=== PATIENT | female | born 1960 | race Caucasian/White ===

== ENCOUNTER → 2018-08-08 15:30 | Outpatient (CLI) | payer OTHER, SELFPAY | PROVIDERS: PCP Family Medicine | DX: Z23 Encounter for immunization (principal) | CPT/HCPCS: 90471; 90686 ==

== ENCOUNTER → 2018-11-27 11:25 | Outpatient (CLI) | payer OTHER, SELFPAY ==
--- NOTE | 2018-11-27 | DI.MG.S_ITS ---
BILATERAL DIGITAL SCREENING MAMMOGRAM 3D/2D WITH CAD: 11/27/2018 CLINICAL: Routine screening. Comparison is made to exams dated: 09/08/2017 mammogram, 09/17/2016 mammogram, and 09/11/2015 mammogram - [facility]. The tissue of both breasts is predominantly fatty. Current study was also evaluated with a Computer Aided Detection (CAD) system. No significant masses, calcifications, or other findings are seen in either breast. There has been no significant interval change. IMPRESSION: NEGATIVE There is no mammographic evidence of malignancy. A 1 year screening mammogram is recommended. This exam was interpreted at Station ID: [id number]. NOTE: For mammograms, a report in lay terms will be sent to the patient. Approximately 15% of breast malignancies will not be visualized mammographically. In the management of a palpable breast mass, a negative mammogram must not discourage biopsy of a clinically suspicious lesion. Electronically Signed By: Gunner davis/janes:11/27/2018 13:25:19 letter sent: Normal Exam ACR BI-RADS Category 1: Negative 3341F
== END ==
PROVIDERS: PCP Family Medicine; Visit Provider Obstetrics & Gynecology
DX: Z12.31 Encounter for screening mammogram for malignant neoplasm of breast (principal)
CPT/HCPCS: 77063; 77067

== ENCOUNTER → 2019-05-04 11:09 | Outpatient (CLI) | payer OTHER, SELFPAY ==
[2019-05-04 12:12] LABS: Add Manual Diff / Slide Review NO; Basophils Absolute Auto 0 /uL (0-100); Basophils Percent Auto 0.5 % (0-2); Eosinophils Absolute Auto 300 /uL (0-450); Hematocrit 41.3 % (36-46); Hemoglobin 13.5 g/dL (12.0-16.0); Lymphocytes Absolute Auto 2200 /uL (1100-4500); Mean Corpuscular HGB Conc 32.6 % (30-36); Mean Corpuscular Hemoglobin 27.9 PG (26-34); Mean Corpuscular Volume 85.5 fL (80-100); Monocytes Absolute Auto 600 /uL (0-900); Monocytes Percent Auto 6.5 % (3-14); Neutrophils Absolute Auto 5800 /uL (1500-7000); Platelet Count 433 X10^3/uL (150-400); Red Blood Cell Count 4.82 X10^6/uL (4.0-5.2); Red Cell Distribution Width 14.5 % (11.6-14.8)
[2019-05-04 13:10] LABS: Alanine Aminotransferase 36 IU/L (9-52); Albumin 4.4 g/dL (3.5-5.0); Albumin Globulin Ratio 1.3 (1.0-2.8); Alkaline Phosphatase 104 U/L (38-126); Aspartate Aminotransferase 33 IU/L (14-36); BUN Creatinine Ratio 28.8 (6-22); Bilirubin Total 0.6 mg/dL (0.2-1.3); Blood Urea Nitrogen 23 mg/dL (7-17); Calcium 10.2 mg/dL (8.4-10.2); Carbon Dioxide 30 mmol/L (22-32); Chloride 101 mmol/L (98-107); Cholesterol 201 mg/dL (140-199); Estimated Glomerular Filt Rate > 60.0 mL/min (>60); Globulin 3.4 g/dL (1.7-4.1); Glucose 89 mg/dL (70-100); HDL Cholesterol 40 mg/dL (40-60); HEMOLYSIS < 15 (0-50); LDL Cholesterol Calculated 145 mg/dL (<100); Potassium 4.9 mmol/L (3.4-5.1); Sodium 141 mmol/L (137-145); Total Protein 7.8 g/dL (6.3-8.2); Triglycerides 81 mg/dL (35-150)
[2019-05-04 13:28] LABS: Thyroid Stimulating Hormone 0.57 uIU/mL (0.47-4.68)
== END ==
PROVIDERS: PCP Family Medicine; Visit Provider Family Medicine
DX: E03.9 Hypothyroidism, unspecified (principal); I10 Essential (primary) hypertension
CPT/HCPCS: 36415; 80053; 80061; 84443; 85025

== ENCOUNTER 2020-01-01 17:37 | Emergency (ER) | payer OTHER, SELFPAY ==
--- NOTE | 2020-01-01 17:46 | DI.RAD.S_ITS ---
PROCEDURE: XR CHEST 1V INDICATIONS: chest tightness TECHNIQUE: One view of the chest was acquired. COMPARISON: [facility], CT, PE STUDY (CTA CHEST), 02/05/2015, 11:22. [facility], CR, CHEST 2 VIEW, 02/05/2015, 9:33. [facility], CR, CHEST 1 VIEW, 10/20/2015, 22:00. FINDINGS: Surgical changes and devices: None. Lungs and pleura: Lungs are clear. No pleural effusions or pneumothorax. Mediastinum: Mediastinal contours appear normal. Heart size is normal. Bones and chest wall: No suspicious bony lesions. Overlying soft tissues appear unremarkable. IMPRESSION: Portable chest within normal limits. Dictated by: Bernard Juarez M.D. on 01/01/2020 at 16:59 Approved by: Bernard Juarez M.D. on 01/01/2020 at 17:00
[2020-01-01 17:47] VITALS: BP 142/82; PULSE 72; RESP 20; TEMP 36.6; O2SAT 97
--- NOTE | 2020-01-01 18:04 | ED.CHESTPAIN ---
HPI - Chest Pain General Chief Complaint: Chest Pain Stated Complaint: feels like a band across back Time Seen by Provider: 01/01/20 18:03 Source: patient Mode of arrival: Ambulatory Limitations: no limitations History of Present Illness HPI narrative: This is a 59-year-old female who comes to the emergency department with complaint of a band of discomfort across her back that started about 5:00 p.m. this evening patient states that started while she was taking a shower. She states it felt like she still had her bra on.Patient states that moving around seems to make it worse. Does not seem to be specific to moving her upper extremities versus walking around. In sort of intermittent. She states it did radiate towards the left shoulder blade at 1 point but that was very brief. She states it is not present currently. She denies shortness of breath, no nausea, no vomiting, she has not any diaphoresis, no lightheadedness or presyncope. She has had a mild headache. No fevers, no chills, no cough cold or congestion. She denies any swelling in her extremities she has a history of hypertension she was switched from Cardizem to lisinopril 6 weeks ago because her blood pressure was not controlled and it has been improved. She has had history of dyslipidemia but lost 60 lb in her numbers improved so she is not currently on a statin, she takes potassium in the morning and magnesium in the evening, aspirin 162 mg and vitamin D3. She had a stress test greater than 10 years ago which she states was negative she has a family history her mother had an TN in her early 60s and her father had a CABG. She has had multiple orthopedic surgeries with a fused ankle, knee surgery, cholecystectomy with no prior stents or cardiac catheterization. She follows with Dr. Kothari is her primary care. Related Data Home Medications Medication Instructions Recorded Confirmed aspirin 162 mg PO DAILY 01/01/20 01/01/20 Previous Rx's Medication Instructions Recorded fluticasone propionate 1 spray INTRANASAL BID #16 gm 05/19/16 albuterol sulfate 90 mcg/actuation 2 puff INHALATION Q6-8H PRN #8.5 06/22/18 aerosol inhaler gram levothyroxine 175 mcg tablet 175 mcg PO QDAY #90 tab 06/08/19 lisinopril 20 1 tab PO DAILY #90 tab 11/26/19 mg-hydrochlorothiazide 12.5 mg tablet Allergies Allergy/AdvReac Type Severity Reaction Status Date / Time hydromorphone [HYDROMORPHONE] Allergy Mild Verified 11/26/19 08:29 shellfish derived Allergy Mild shrimp Verified 11/26/19 08:29 [SHELLFISH DERIVED] azithromycin [AZITHROMYCIN] AdvReac Intermediate heart Verified 11/26/19 08:29 palpitations measles, mumps, and rubella AdvReac Intermediate Maculopapular Verified 11/26/19 08:29 vaccine rash atorvastatin [ATORVASTATIN] AdvReac Mild sore throat Verified 11/26/19 08:29 cefuroxime [CEFUROXIME] AdvReac Mild gi upset Verified 11/26/19 08:29 morphine [MORPHINE] AdvReac Mild itching Verified 11/26/19 08:29 Sulfa (Sulfonamide AdvReac Mild gi upset Verified 11/26/19 08:29 Antibiotics) [SULFA (SULFONAMIDE ANTIBIOTICS)] trimethoprim [TRIMETHOPRIM] AdvReac Mild gi upset Verified 11/26/19 08:29 Review of Systems Review of Systems ROS Unobtainable: All systems reviewed & are unremarkable except as noted in HPI and below Patient History Medical History Allergic rhinitis (Chronic ~1981) Anemia (Resolved ~1987) Anxiety (Chronic ~2006) Arthritis (Chronic ~1985) Chicken pox (Resolved 07/20/74) GERD (gastroesophageal reflux disease) (Chronic 2004) Hayfever (Chronic 1981) Headache (Chronic) Hearing loss (Chronic 1996) Heart palpitations (Chronic ~2009) Hemorrhoid (Resolved ~2011) History of upper GI x-ray series (Resolved 12/14/04) Hyperlipidemia (Chronic 1991) Hypertension (Chronic 2007) Hypothyroidism (Chronic 09/2010) Measles (Resolved) Meniere's disease (cochlear hydrops) (Chronic 1997) Migraines (Chronic ~1989) Multiple acquired skin tags (Chronic ~1979) Right ankle pain (Resolved 04/1986) RLS (restless legs syndrome) (Chronic ~2007) Sciatica of right side without back pain (Chronic 2007) Shoulder pain (Chronic 2011) Tinnitus (Chronic 1996) Toxoplasmosis chorioretinitis of right eye (Resolved) Trimalleolar fracture (Resolved 04/22/86) Vertigo (Chronic 1996) Vitamin D deficiency (Chronic ~09/2009) Surgical History Anesthesia (Resolved) History of esophagogastroduodenoscopy (EGD) (Resolved 06/09/15) Status post ankle fusion (Resolved 09/18/92) Status post delivery (Resolved 06/21/97) Status post delivery (Resolved 03/30/01) Status post cholecystectomy (Resolved 06/27/92) Status post colonoscopy (Resolved 06/02/10) Status post dilation and curettage (Resolved 04/22/96) Status post dilation and curettage (Resolved 02/12/99) Status post hardware removal (Resolved 06/1986) Status post hardware removal (Resolved 09/1986) Status post knee surgery (Resolved 12/09/15) Status post surgery (Resolved 01/16/16) Status post surgical manipulation of ankle joint (Resolved 04/22/86) Status post tubal ligation (Resolved 03/30/01) Family History Brother Age: 48 High cholesterol Daughter Age: 22 Asthma Father Age: 81 Hx of heart bypass surgery Hypertension High cholesterol Heart disease TIA (transient ischemic attack) TGA (transient global amnesia) Grandmother History of heart attack Kidney malignancy Hypertension High cholesterol Stroke Mother Age: 80 Diabetes mellitus Heart attack High cholesterol Hypertension Diabetic neuropathy Grandfather Hx of heart bypass surgery Alzheimer's disease Grandmother Diabetes mellitus Hypertension Congestive heart failure Sister Age: 59 High cholesterol Sister Age: 53 Smoker Celiac disease Sister Age: 50 Neuropathy, lateral femoral cutaneous nerve Hypothyroidism Anxiety Daughter Age: 38 No problems noted. Social History (Updated 01/01/20 @ 18:26 by Zarina Vinson DO) Smoking Status: Never smoker substance use type: does not use Smoking Status: Never smoker Exam Narrative Exam Narrative: GENERAL: Alert and oriented x three, well-nourished, well-appearing obese female in no acute distress. HEENT: Head normocephalic, atraumatic, EOMI, pupils reactive, face symmetric, moist mucous membranes NECK: Supple, full range of motion CARDIOVASCULAR: Regular rate and rhythm without murmurs, rubs or gallops. RESPIRATORY: Breath sounds equal bilaterally, no wheezes rales or rhonchi. ABDOMEN: Soft, nontender. Normoactive bowel sounds all 4 quadrants. No guarding or rebound, rigidity, no mass : No CVA tenderness EXTREMITIES: Normal range of motion, no clubbing or edema. Pulses bilateral lower extremities. Neurovascularly intact NEUROLOGICAL: Cranial nerves II through XII grossly intact. Moving all extremities SKIN: Warm, dry, no petechiae, no rashes or lesions. Initial Vital Signs Initial Vital Signs: Vital Signs Temperature 97.9 F 01/01/20 17:47 Pulse Rate 72 01/01/20 17:47 Respiratory Rate 20 01/01/20 17:47 Blood Pressure 142/82 H 01/01/20 17:47 Pulse Oximetry 97 01/01/20 17:47 Scores HEART Score Heart Score history: Moderately Suspicious Heart Score EKG: Normal Heart Score Age: 45-64 years old Heart Score risk factors: 1-2 risk factors Heart Score troponin: < or = to normal limit Heart Score Total: 3 Course Orders Ordered: ED Orders 01/01/20 17:46 XR chest 1V Stat EKG-12 Lead Stat 01/01/20 17:59 Complete Blood Count AUTO DIFF Stat Comprehensive Metabolic Panel Stat Lipase Stat Troponin & CK Cardiac Panel Stat 01/01/20 20:00 Troponin & CK Cardiac Panel Stat EKG-12 Lead Stat Discontinued Medications Aspirin (Aspirin Chew) 324 mg PO NOW ONE Stop: 01/01/20 18:22 Last Admin: 01/01/20 18:31 Dose: 324 mg Documented by: OLI Ketorolac Tromethamine (Toradol) 15 mg IV NOW ONE Stop: 01/01/20 20:44 Last Admin: 01/01/20 20:50 Dose: 15 mg Documented by: SAMMYFARKeila Vital Signs Vital signs: Vital Signs - 8 hr 01/01/20 17:47 01/01/20 18:20 01/01/20 19:43 Temperature 97.9 F Pulse Rate 72 68 82 Respiratory Rate 20 16 30 H Blood Pressure 142/82 H Blood Pressure [Right Arm] 139/62 134/62 Pulse Oximetry 97 98 97 MDM - Chest Pain Lab Data Attestation: I reviewed the patient's lab results. Result diagrams: 01/01/20 17:59 01/01/20 17:59 Labs: Lab Results 01/01/20 01/01/20 01/01/20 Range/Units 17:59 17:59 20:00 WBC 9.1 (4.5-11.0) X10^3/uL RBC 4.31 (4.0-5.2) X10^6/uL Hgb 12.8 (12.0-16.0) g/dL Hct 37.1 (36-46) % MCV 86.1 (80-100) fL MCH 29.8 (26-34) PG MCHC 34.6 (30-36) % RDW 13.5 (11.6-14.8) % Plt Count 325 (150-400) X10^3/uL Neut % (Auto) 60.2 (50-75) % Lymph % (Auto) 27.5 (25-40) % [place] % (Auto) 6.6 (3-14) % Eos % (Auto) 4.8 H (2-4) % Baso % (Auto) 0.9 (0-2) % Neut # (Auto) 5500 (2655-9339) /uL Lymph # (Auto) 2500 (3991-7622) /uL [place] # (Auto) 600 (0-900) /uL Eos # (Auto) 400 (0-450) /uL Baso # (Auto) 100 (0-100) /uL Sodium 136 L (137-145) mmol/L Potassium 3.8 (3.4-5.1) mmol/L Chloride 100 (98-107) mmol/L Carbon Dioxide 27 (22-32) mmol/L BUN 21 H (7-17) mg/dL Creatinine 0.81 (0.52-1.04) mg/dL Estimated GFR > 60.0 (>60) mL/min BUN/Creatinine Ratio 25.9 H (6-22) Glucose 98 (70-100) mg/dL Calcium 9.8 (8.4-10.2) mg/dL Total Bilirubin 0.6 (0.2-1.3) mg/dL AST 35 (14-36) IU/L ALT 35 H (<35) IU/L Alkaline Phosphatase 103 (38-126) U/L Total Creatine Kinase 67 69 (30-135) U/L CK-MB (CK-2) TNP TNP CK-MB (CK-2) Rel Index TNP TNP Troponin I < 0.012 < 0.012 (0.01-0.034) ng/mL Total Protein 8.1 (6.3-8.2) g/dL Albumin 4.5 (3.5-5.0) g/dL Globulin 3.6 (1.7-4.1) g/dL Albumin/Globulin Ratio 1.3 (1.0-2.8) Lipase 86 (23-300) U/L Imaging Data Chest x-ray: Radiologist's Impression: [address] [address] XRay Report Signed Patient: Sandra Ly KMR#: [id number] : 2Acct:[id number] Age/Sex: 59 / FDate of Service: 01/01/20 Loc: ED Accession Number: [id number] Procedure: XR chest 1V Ordering Provider: Lucille Sarkar MD PROCEDURE: XR CHEST 1V INDICATIONS: chest tightness TECHNIQUE: One view of the chest was acquired. COMPARISON: [facility], CT, PE STUDY (CTA CHEST), 02/05/2015, 11:22. [facility], CR, CHEST 2 VIEW, 02/05/2015, 9:33. [facility], CR, CHEST 1 VIEW, 10/20/2015, 22:00. FINDINGS: Surgical changes and devices: None. Lungs and pleura: Lungs are clear. No pleural effusions or pneumothorax. Mediastinum: Mediastinal contours appear normal. Heart size is normal. Bones and chest wall: No suspicious bony lesions. Overlying soft tissues appear unremarkable. IMPRESSION: Portable chest within normal limits. Dictated by: Bernard Juarez M.D. on 01/01/2020 at 16:59 Approved by: Bernard Juarez M.D. on 01/01/2020 at 17:00 ECG Data Attestation: I personally reviewed and interpreted this ECG as follows: Prior ECG tracings: available for review Interpretation: Sinus rhythm rate of 73 MN 180 QRS of 90 and QTC of [address] elevation or depression. Patient's EKG appears similar to 07/20/2016 and 07/15/2012. EKG 2. Shows sinus rhythm with a rate of 65 MN 194 QRS of 99 and QTC of 419. No ST elevation or depression. EKG appears similar to prior from earlier. MDM Narrative Medical decision making narrative: Patient's initial labs, EKG and chest x-ray do not show clear changes. Discussed with patient we do not the option for outpatient stress testing at this time secondary to service is being restricted secondary to the current coronavirus pandemic for an undefined period of time. I did verify this with patient's primary service Dr. Lewis. Patient is reluctant to be admitted for observation at this time. Plan for repeat troponin and EKG at 2 hour carmita. Repeat troponin EKG do not show any new changes. Patient defers observation we did discuss at length risk versus benefit and she is aware that we cannot set up outpatient stress testing at this time. She is going to see Dr. Kothari tomorrow as she works in the same clinic and they can discuss any need for optimization. She states that she did continue to have some discomfort with movement and did try a dose of Toradol to see if this is helpful. But we also discussed we cannot rule out a cardiac cause and if she has worsening symptoms she should return. Discharge Plan Departure Patient Disposition: Home Clinical Impression: Back pain, thoracic Qualifiers: Chronicity: acute Back pain laterality: bilateral Qualified Code(s): M54.6 - Pain in thoracic spine Discharge Date/Time: 01/01/20 21:27 Instructions: DI for Atypical Chest Pain Activity Restrictions/Additional Instructions: Follow up with your primary care for recheck, you may call and discuss over the phone about additional steps. Continue your daily aspirin. Continue your home medications as prescribed. Return to the ER for new or worsening symptoms, lightheadedness or passing out, new back pain radiating to the chest, arms or neck, particularly if your short of breath, diaphoretic or sweaty, having nausea or vomiting, swelling in your extremities or other new or concerning symptoms. Prescriptions: No Action lisinopril-hydrochlorothiazide 20-12.5 mg tablet 1 tab PO DAILY Qty: 90 RF: 1 fluticasone propionate 16 GM spray,suspension 1 spray Intranasal BID Qty: 16 RF: 5 levothyroxine [Levoxyl] 175 mcg tablet 175 mcg PO QDAY Qty: 90 RF: 6 albuterol sulfate [Proventil HFA] 90 mcg/actuation HFA aerosol inhaler 2 puff INHALATION Q6-8H PRN (Reason: shortness of breath) Qty: 8.5 RF: 1 aspirin 81 mg Tablet,Chewable 162 mg PO DAILY RF: 0 Referrals: Stan Kothari MD [Primary Care Provider] -
[2020-01-01 18:07] LABS: Add Manual Diff / Slide Review NO; Basophils Absolute Auto 100 /uL (0-100); Basophils Percent Auto 0.9 % (0-2); Eosinophils Absolute Auto 400 /uL (0-450); Eosinophils Percent Auto 4.8 % (2-4); Hematocrit 37.1 % (36-46); Hemoglobin 12.8 g/dL (12.0-16.0); Lymphocytes Absolute Auto 2500 /uL (1100-4500); Lymphocytes Percent Auto 27.5 % (25-40); Mean Corpuscular HGB Conc 34.6 % (30-36); Mean Corpuscular Hemoglobin 29.8 PG (26-34); Mean Corpuscular Volume 86.1 fL (80-100); Monocytes Absolute Auto 600 /uL (0-900); Monocytes Percent Auto 6.6 % (3-14); Neutrophils Absolute Auto 5500 /uL (1500-7000); Neutrophils Percent Auto 60.2 % (50-75); Platelet Count 325 X10^3/uL (150-400); Red Blood Cell Count 4.31 X10^6/uL (4.0-5.2); Red Cell Distribution Width 13.5 % (11.6-14.8); White Blood Cell Count 9.1 X10^3/uL (4.5-11.0)
[2020-01-01 18:18] LABS: Alanine Aminotransferase 35 IU/L (<35); Albumin 4.5 g/dL (3.5-5.0); Albumin Globulin Ratio 1.3 (1.0-2.8); Alkaline Phosphatase 103 U/L (38-126); Aspartate Aminotransferase 35 IU/L (14-36); BUN Creatinine Ratio 25.9 (6-22); Bilirubin Total 0.6 mg/dL (0.2-1.3); Blood Urea Nitrogen 21 mg/dL (7-17); Calcium 9.8 mg/dL (8.4-10.2); Carbon Dioxide 27 mmol/L (22-32); Chloride 100 mmol/L (98-107); Creatine Kinase 67 U/L (30-135); Estimated Glomerular Filt Rate > 60.0 mL/min (>60); Globulin 3.6 g/dL (1.7-4.1); Glucose 98 mg/dL (70-100); HEMOLYSIS < 15 (0-50); Lipase 86 U/L (23-300); Potassium 3.8 mmol/L (3.4-5.1); Sodium 136 mmol/L (137-145); Total Protein 8.1 g/dL (6.3-8.2)
[2020-01-01 18:20] VITALS: BP 139/62; PULSE 68; RESP 16; O2SAT 98
[2020-01-01 18:30] LABS: Troponin I < 0.012 ng/mL (0.01-0.034)
[2020-01-01] MEDS: ASPIRIN 81 MG CHEW TAB 324 MG PO (18:31)
[2020-01-01 19:43] VITALS: BP 134/62; PULSE 82; RESP 30; O2SAT 97
[2020-01-01 20:29] LABS: Creatine Kinase 69 U/L (30-135)
[2020-01-01 20:42] LABS: Troponin I < 0.012 ng/mL (0.01-0.034)
[2020-01-01] MEDS: KETOROLAC 60 MG/2 ML VIAL 15 MG IV (20:50)
== END 2020-01-01 21:27 | disposition home or self-care (01) ==
PROVIDERS: Emergency Medicine; Emergency Provider Emergency Medicine; PCP Family Medicine; Referring Provider Family Medicine
DX: M54.6 Pain in thoracic spine (principal); R07.9 Chest pain, unspecified; Z79.82 Long term (current) use of aspirin
CPT/HCPCS: 36415; 71045; 80053; 82550; 83690; 84484; 85025; 93005; 96374; 99284; J1885

== ENCOUNTER → 2020-05-21 16:37 | Outpatient (CLI) | payer OTHER, SELFPAY ==
[2020-05-21 18:39] LABS: Bacteria Urine None Seen
[2020-05-21 18:50] LABS: Appearance Urine UA SL CLOUDY; Bilirubin Urine UA NEGATIVE (NEGATIVE); Color Urine UA BROWN; Glucose Urine UA NEGATIVE (Negative); Ketones Urine UA TRACE (NEGATIVE); Leukocyte Esterase Urine UA 1+ (NEGATIVE); Nitrite Urine UA NEGATIVE (Negative); Occult Blood Urine UA 3+ (Negative); Protein Urine UA 1+ (Negative); Urobilinogen Urine UA 0.2 E.U./dL (0.2)
[2020-05-21 19:18] LABS: Culture Indicated Urine Specimen Cultured; RBC Urine 10-30/HPF (0-5/HPF); WBC Urine 5-10/HPF (0-5/HPF)
== END ==
PROVIDERS: PCP Family Medicine; Visit Provider Nurse Practitioner Family
DX: R30.0 Dysuria (principal); R35.0 Frequency of micturition; R39.15 Urgency of urination
CPT/HCPCS: 81001; 87077; 87086; 87186

== ENCOUNTER → 2020-07-12 14:27 | Outpatient (CLI) | payer OTHER, SELFPAY | PROVIDERS: PCP Family Medicine; Referring Provider Internal Medicine; Visit Provider Internal Medicine | DX: Z23 Encounter for immunization (principal) | CPT/HCPCS: 90471; 90686 ==

== ENCOUNTER → 2020-08-12 14:40 | Outpatient (CLI) | payer OTHER, SELFPAY ==
--- NOTE | 2020-08-12 | DI.MG.S_ITS ---
BILATERAL DIGITAL SCREENING MAMMOGRAM 3D/2D WITH CAD: 08/12/2020 CLINICAL: Routine screening. Comparison is made to exams dated: 11/27/2018 mammogram, 09/08/2017 mammogram, 09/17/2016 mammogram, 09/11/2015 mammogram, and 08/16/2014 mammogram - [facility]. The tissue of both breasts is predominantly fatty. Current study was also evaluated with a Computer Aided Detection (CAD) system. No significant masses, calcifications, or other findings are seen in either breast. There has been no significant interval change. IMPRESSION: NEGATIVE There is no mammographic evidence of malignancy. A 1 year screening mammogram is recommended. This exam was interpreted at Station ID: [id number]. NOTE: For mammograms, a report in lay terms will be sent to the patient. Approximately 15% of breast malignancies will not be visualized mammographically. In the management of a palpable breast mass, a negative mammogram must not discourage biopsy of a clinically suspicious lesion. Electronically Signed By: El day/janes:08/12/2020 17:18:25 letter sent: Normal Exam ACR BI-RADS Category 1: Negative 3341F
== END ==
PROVIDERS: PCP Family Medicine; Referring Provider Family Medicine; Visit Provider Family Medicine
DX: Z12.31 Encounter for screening mammogram for malignant neoplasm of breast (principal)
CPT/HCPCS: 77063; 77067

== ENCOUNTER → 2020-08-15 10:12 | Outpatient (CLI) | payer OTHER, SELFPAY ==
[2020-08-15 11:26] LABS: Add Manual Diff / Slide Review NO; Basophils Absolute Auto 100 /uL (0-100); Basophils Percent Auto 0.9 % (0-2); Eosinophils Absolute Auto 400 /uL (0-450); Eosinophils Percent Auto 4.5 % (2-4); Hematocrit 37.1 % (36-46); Hemoglobin 12.4 g/dL (12.0-16.0); Lymphocytes Absolute Auto 2100 /uL (1100-4500); Lymphocytes Percent Auto 26.8 % (25-40); Mean Corpuscular HGB Conc 33.5 % (30-36); Mean Corpuscular Hemoglobin 29.5 PG (26-34); Mean Corpuscular Volume 87.9 fL (80-100); Monocytes Absolute Auto 500 /uL (0-900); Monocytes Percent Auto 6.1 % (3-14); Neutrophils Absolute Auto 4800 /uL (1500-7000); Neutrophils Percent Auto 61.7 % (50-75); Platelet Count 351 X10^3/uL (150-400); Red Blood Cell Count 4.22 X10^6/uL (4.0-5.2); Red Cell Distribution Width 13.5 % (11.6-14.8); White Blood Cell Count 7.8 X10^3/uL (4.5-11.0)
[2020-08-15 11:52] LABS: Alanine Aminotransferase 18 IU/L (<35); Albumin 4.1 g/dL (3.5-5.0); Albumin Globulin Ratio 1.3 (1.0-2.8); Alkaline Phosphatase 94 U/L (38-126); Aspartate Aminotransferase 26 IU/L (14-36); BUN Creatinine Ratio 25.8 (6-22); Bilirubin Total 0.5 mg/dL (0.2-1.3); Blood Urea Nitrogen 23 mg/dL (7-17); Calcium 9.6 mg/dL (8.4-10.2); Carbon Dioxide 31 mmol/L (22-32); Chloride 104 mmol/L (98-107); Cholesterol 205 mg/dL (140-199); Estimated Glomerular Filt Rate > 60.0 mL/min (>60); Globulin 3.2 g/dL (1.7-4.1); Glucose 94 mg/dL (70-100); HDL Cholesterol 36 mg/dL (40-60); HEMOLYSIS < 15 (0-50); LDL Cholesterol Calculated 152 mg/dL (<100); Potassium 4.8 mmol/L (3.4-5.1); Sodium 137 mmol/L (137-145); Total Protein 7.3 g/dL (6.3-8.2); Triglycerides 85 mg/dL (35-150)
[2020-08-15 12:21] LABS: Thyroid Stimulating Hormone 2.63 uIU/mL (0.47-4.68)
== END ==
PROVIDERS: PCP Family Medicine; Referring Provider Family Medicine; Visit Provider Family Medicine
DX: E03.9 Hypothyroidism, unspecified (principal); I10 Essential (primary) hypertension
CPT/HCPCS: 36415; 80053; 80061; 84443; 85025

== ENCOUNTER → 2020-10-02 09:57 | Outpatient (CLI) | payer OTHER, SELFPAY ==
[2020-10-02 11:47] LABS: COVID19 -Nasal RAPID Negative (Negative)
== END ==
PROVIDERS: PCP Family Medicine; Visit Provider Student in an Organized Health Care Education/Training Program
DX: R09.81 Nasal congestion (principal)
CPT/HCPCS: 87635

== ENCOUNTER → 2020-12-15 14:30 | Outpatient (CLI) | payer OTHER, SELFPAY ==
[2020-12-15] MEDS: COVID-19 VACC, Ad26(JANSSEN)/PF 0.5 ML IM (14:37)
== END ==
PROVIDERS: PCP Family Medicine; Visit Provider Internal Medicine
DX: Z23 Encounter for immunization (principal)
CPT/HCPCS: 0031A; 91303

== ENCOUNTER → 2020-12-24 09:27 | Outpatient (CLI) | payer OTHER, SELFPAY ==
[2020-12-24 11:34] LABS: COVID19 -Nasal RAPID Negative (Negative)
== END ==
PROVIDERS: PCP Family Medicine; Visit Provider Student in an Organized Health Care Education/Training Program
DX: Z20.822 Contact with and (suspected) exposure to COVID-19 (principal)
CPT/HCPCS: 87635

== ENCOUNTER → 2021-08-18 11:41 | Outpatient (CLI) | payer OTHER, SELFPAY ==
[2021-08-18 12:32] LABS: Add Manual Diff / Slide Review NO; Basophils Absolute Auto 100 /uL (0-100); Basophils Percent Auto 0.7 % (0-2); Eosinophils Absolute Auto 300 /uL (0-450); Eosinophils Percent Auto 3.9 % (2-4); Hematocrit 38.3 % (36-46); Hemoglobin 12.9 g/dL (12.0-16.0); Lymphocytes Absolute Auto 1800 /uL (1100-4500); Lymphocytes Percent Auto 24.5 % (25-40); Mean Corpuscular HGB Conc 33.6 % (30-36); Mean Corpuscular Volume 89.1 fL (80-100); Monocytes Absolute Auto 500 /uL (0-900); Monocytes Percent Auto 6.7 % (3-14); Neutrophils Absolute Auto 4800 /uL (1500-7000); Neutrophils Percent Auto 64.2 % (50-75); Platelet Count 355 X10^3/uL (150-400); Red Cell Distribution Width 13.2 % (11.6-14.8); White Blood Cell Count 7.5 X10^3/uL (4.5-11.0)
[2021-08-18 13:09] LABS: Alanine Aminotransferase 19 IU/L (<35); Albumin 4.2 g/dL (3.5-5.0); Albumin Globulin Ratio 1.4 (1.0-2.8); Alkaline Phosphatase 86 U/L (38-126); Aspartate Aminotransferase 25 IU/L (14-36); BUN Creatinine Ratio 20.7 (6-22); Bilirubin Total 0.4 mg/dL (0.2-1.3); Blood Urea Nitrogen 19 mg/dL (7-17); Calcium 9.7 mg/dL (8.4-10.2); Carbon Dioxide 28 mmol/L (22-32); Chloride 103 mmol/L (98-107); Cholesterol 210 mg/dL (140-199); Estimated Glomerular Filt Rate > 60.0 mL/min (>60); Globulin 2.9 g/dL (1.7-4.1); Glucose 92 mg/dL (70-100); HDL Cholesterol 39 mg/dL (40-60); HEMOLYSIS < 15 (0-50); LDL Cholesterol Calculated 155 mg/dL (<100); Potassium 4.4 mmol/L (3.4-5.1); Sodium 139 mmol/L (137-145); Total Protein 7.1 g/dL (6.3-8.2); Triglycerides 80 mg/dL (35-150)
[2021-08-18 13:34] LABS: Thyroid Stimulating Hormone 2.54 uIU/mL (0.47-4.68)
== END ==
PROVIDERS: PCP Family Medicine; Referring Provider Family Medicine; Visit Provider Family Medicine
DX: I10 Essential (primary) hypertension (principal); E03.9 Hypothyroidism, unspecified
CPT/HCPCS: 36415; 80053; 80061; 84443; 85025

== ENCOUNTER → 2021-08-20 09:57 | Outpatient (CLI) | payer OTHER, SELFPAY ==
[2021-08-20 13:05] LABS: Appearance Urine UA CLEAR; Bilirubin Urine UA NEGATIVE (NEGATIVE); Color Urine UA YELLOW; Glucose Urine UA NEGATIVE (Negative); Ketones Urine UA NEGATIVE (NEGATIVE); Leukocyte Esterase Urine UA NEGATIVE (NEGATIVE); Nitrite Urine UA NEGATIVE (Negative); Occult Blood Urine UA NEGATIVE (Negative); Protein Urine UA NEGATIVE (Negative); Specific Gravity Urine UA 1.015 (1.000-1.035); Urobilinogen Urine UA 0.2 E.U./dL (0.2)
[2021-08-20 13:16] LABS: Bacteria Urine Few (2-10); Culture Indicated Urine Cult Not Indicated; RBC Urine None Seen (0-5/HPF); Squamous Epithelial Cell Urine 10-30 /HPF (0-5/HPF); WBC Urine 1-5/HPF (0-5/HPF)
== END ==
PROVIDERS: PCP Family Medicine; Visit Provider Family Medicine
DX: R10.9 Unspecified abdominal pain (principal)
CPT/HCPCS: 81001

== ENCOUNTER → 2021-08-25 18:15 | Outpatient (CLI) | payer OTHER, SELFPAY ==
--- NOTE | 2021-08-25 | DI.MG.S_ITS ---
BILATERAL DIGITAL SCREENING MAMMOGRAM 3D/2D WITH CAD: 08/25/2021 CLINICAL: Routine screening. Comparison is made to exams dated: 08/12/2020 mammogram, 11/27/2018 mammogram, and 09/08/2017 mammogram - [facility]. The tissue of both breasts is predominantly fatty. Current study was also evaluated with a Computer Aided Detection (CAD) system. No significant masses, calcifications, or other findings are seen in either breast. There has been no significant interval change. IMPRESSION: NEGATIVE There is no mammographic evidence of malignancy. A 1 year screening mammogram is recommended. This exam was interpreted at Station ID: [id number]. NOTE: For mammograms, a report in lay terms will be sent to the patient. Approximately 15% of breast malignancies will not be visualized mammographically. In the management of a palpable breast mass, a negative mammogram must not discourage biopsy of a clinically suspicious lesion. Electronically Signed By: Stan Martínez M.D., jr/janes:08/26/2021 11:20:30 letter sent: Normal Exam ACR BI-RADS Category 1: Negative 3341F
== END ==
PROVIDERS: PCP Family Medicine; Referring Provider Family Medicine; Visit Provider Family Medicine
DX: Z12.31 Encounter for screening mammogram for malignant neoplasm of breast (principal)
CPT/HCPCS: 77063; 77067

== ENCOUNTER → 2021-08-26 19:03 | Outpatient (CLI) | payer OTHER, SELFPAY ==
[2021-08-26 19:44] LABS: COVID19 -Nasal RAPID Negative (Negative)
== END ==
PROVIDERS: PCP Family Medicine; Visit Provider Nurse Practitioner Family
DX: Z20.822 Contact with and (suspected) exposure to COVID-19 (principal)
CPT/HCPCS: 87635

== ENCOUNTER → 2021-08-28 11:09 | Outpatient (CLI) | payer OTHER, SELFPAY ==
[2021-08-28 11:44] LABS: COVID19 -Nasal RAPID POSITIVE (Negative)
== END ==
PROVIDERS: PCP Family Medicine; Visit Provider Nurse Practitioner Family
DX: U07.1 COVID-19 (principal); Z20.822 Contact with and (suspected) exposure to COVID-19
CPT/HCPCS: 87635

== ENCOUNTER → 2022-08-06 14:00 | Outpatient (CLI) | payer OTHER, SELFPAY | PROVIDERS: PCP Family Medicine; Referring Provider Internal Medicine; Visit Provider Internal Medicine | DX: Z23 Encounter for immunization (principal) | CPT/HCPCS: 90471; 90686 ==

== ENCOUNTER → 2022-09-15 10:26 | Outpatient (CLI) | payer OTHER, SELFPAY ==
[2022-09-15 12:40] LABS: Add Manual Diff / Slide Review NO; Basophils Absolute Auto 0 /uL (0-100); Basophils Percent Auto 0.7 % (0-2); Eosinophils Absolute Auto 300 /uL (0-450); Eosinophils Percent Auto 4.5 % (2-4); Hematocrit 39.7 % (36-46); Hemoglobin 13.4 g/dL (12.0-16.0); Lymphocytes Absolute Auto 1600 /uL (1100-4500); Lymphocytes Percent Auto 24.4 % (25-40); Mean Corpuscular HGB Conc 33.7 % (30-36); Mean Corpuscular Hemoglobin 30.2 PG (26-34); Mean Corpuscular Volume 89.6 fL (80-100); Monocytes Absolute Auto 400 /uL (0-900); Monocytes Percent Auto 6.1 % (3-14); Neutrophils Absolute Auto 4200 /uL (1500-7000); Neutrophils Percent Auto 64.3 % (50-75); Platelet Count 378 X10^3/uL (150-400); Red Blood Cell Count 4.44 X10^6/uL (4.0-5.2); Red Cell Distribution Width 13.2 % (11.6-14.8); White Blood Cell Count 6.5 X10^3/uL (4.5-11.0)
[2022-09-15 13:59] LABS: Alanine Aminotransferase 23 IU/L (<35); Albumin 4.1 g/dL (3.5-5.0); Albumin Globulin Ratio 1.1 (1.0-2.8); Alkaline Phosphatase 92 U/L (38-126); Aspartate Aminotransferase 27 IU/L (14-36); BUN Creatinine Ratio 21.8 (6-22); Bilirubin Total 0.4 mg/dL (0.2-1.3); Blood Urea Nitrogen 19 mg/dL (7-17); Calcium 9.2 mg/dL (8.4-10.2); Carbon Dioxide 30 mmol/L (22-32); Chloride 101 mmol/L (98-107); Cholesterol 222 mg/dL (140-199); Estimated Glomerular Filt Rate > 60 mL/min (>60); Globulin 3.7 g/dL (1.7-4.1); Glucose 93 mg/dL (80-110); HDL Cholesterol 33 mg/dL (40-60); HEMOLYSIS < 15 (0-50); LDL Cholesterol Calculated 168 mg/dL (<100); Potassium 4.4 mmol/L (3.4-5.1); Sodium 141 mmol/L (137-145); Total Protein 7.8 g/dL (6.3-8.2); Triglycerides 105 mg/dL (35-150)
[2022-09-15 14:52] LABS: TSH w/ Reflex to FT4 3.88 uIU/mL (0.47-4.68)
== END ==
PROVIDERS: PCP Family Medicine; Referring Provider Family Medicine; Visit Provider Family Medicine
DX: E03.9 Hypothyroidism, unspecified (principal); I10 Essential (primary) hypertension
CPT/HCPCS: 36415; 80053; 80061; 84443; 85025

== ENCOUNTER → 2022-09-23 14:23 | Outpatient (CLI) | payer OTHER, SELFPAY ==
--- NOTE | 2022-09-23 14:24 | DI.MG.S_ITS ---
BILATERAL DIGITAL SCREENING MAMMOGRAM 3D/2D WITH CAD: 09/23/2022 CLINICAL: Routine screening. Comparison is made to exams dated: 08/25/2021 mammogram, 08/12/2020 mammogram, and 11/27/2018 mammogram - [facility]. Both breasts are almost entirely fatty (category a/<25% glandular tissue). Current study was also evaluated with a Computer Aided Detection (CAD) system. No significant masses, calcifications, or other findings are seen in either breast. There has been no significant interval change. IMPRESSION: NEGATIVE There is no mammographic evidence of malignancy. A 1 year screening mammogram is recommended. Based on the Tyrer Cuzick model (a risk assessment model) the patient's lifetime risk is 4.9% and her 10 year risk is 1.9%. According to the ACR, ACS, and NCCN guidelines, an annual breast MRI exam along with mammogram is recommended if the patient's lifetime risk is 20% or greater. This exam was interpreted at Station ID: [id number]. NOTE: For mammograms, a report in lay terms will be sent to the patient. Approximately 15% of breast malignancies will not be visualized mammographically. In the management of a palpable breast mass, a negative mammogram must not discourage biopsy of a clinically suspicious lesion. Electronically Signed By: Stan Martínez M.D., jr/janes:09/23/2022 14:55:38 letter sent: Normal Exam ACR BI-RADS Category 1: Negative 3341F
== END ==
PROVIDERS: PCP Family Medicine; Referring Provider Family Medicine; Visit Provider Family Medicine
DX: Z12.31 Encounter for screening mammogram for malignant neoplasm of breast (principal)
CPT/HCPCS: 77063; 77067

== ENCOUNTER → 2022-12-03 17:03 | Outpatient (CLI) | payer OTHER, SELFPAY ==
[2022-12-03 17:17] LABS: Add Manual Diff / Slide Review NO; Basophils Absolute Auto 100 /uL (0-100); Basophils Percent Auto 0.7 % (0-2); Eosinophils Absolute Auto 300 /uL (0-450); Eosinophils Percent Auto 3.8 % (2-4); Hematocrit 39.4 % (36-46); Hemoglobin 13.2 g/dL (12.0-16.0); Lymphocytes Absolute Auto 2000 /uL (1100-4500); Lymphocytes Percent Auto 23.5 % (25-40); Mean Corpuscular HGB Conc 33.5 % (30-36); Mean Corpuscular Hemoglobin 29.8 PG (26-34); Monocytes Absolute Auto 500 /uL (0-900); Monocytes Percent Auto 6.2 % (3-14); Neutrophils Absolute Auto 5600 /uL (1500-7000); Neutrophils Percent Auto 65.8 % (50-75); Platelet Count 347 X10^3/uL (150-400); Red Blood Cell Count 4.43 X10^6/uL (4.0-5.2); Red Cell Distribution Width 13.5 % (11.6-14.8); White Blood Cell Count 8.5 X10^3/uL (4.5-11.0)
[2022-12-03 17:39] LABS: Alanine Aminotransferase 23 IU/L (<35); Albumin 4.3 g/dL (3.5-5.0); Albumin Globulin Ratio 1.2 (1.0-2.8); Alkaline Phosphatase 92 U/L (38-126); Aspartate Aminotransferase 26 IU/L (14-36); BUN Creatinine Ratio 20.9 (6-22); Bilirubin Total 0.3 mg/dL (0.2-1.3); Blood Urea Nitrogen 18 mg/dL (7-17); Calcium 9.7 mg/dL (8.4-10.2); Carbon Dioxide 28 mmol/L (22-32); Chloride 102 mmol/L (98-107); Estimated Glomerular Filt Rate > 60 mL/min (>60); Globulin 3.6 g/dL (1.7-4.1); Glucose 100 mg/dL (80-110); HEMOLYSIS < 15 (0-50); Potassium 4.3 mmol/L (3.4-5.1); Sodium 139 mmol/L (137-145); Total Protein 7.9 g/dL (6.3-8.2)
[2022-12-03 17:56] LABS: Free T4, Direct Thyroxine 1.63 ng/dL (0.78-2.19)
[2022-12-03 18:10] LABS: Thyroid Stimulating Hormone 0.962 uIU/mL (0.47-4.68)
== END ==
PROVIDERS: PCP Family Medicine; Referring Provider Internal Medicine; Visit Provider Internal Medicine
DX: E03.9 Hypothyroidism, unspecified (principal); I48.19 Other persistent atrial fibrillation
CPT/HCPCS: 36415; 80053; 84439; 84443; 85025

== ENCOUNTER → 2023-07-18 14:46 | Outpatient (CLI) | payer OTHER, SELFPAY ==
[2023-07-18 16:17] LABS: Add Manual Diff / Slide Review NO; Basophils Absolute Auto 100 /uL (0-100); Basophils Percent Auto 0.7 % (0-2); Eosinophils Absolute Auto 300 /uL (0-450); Eosinophils Percent Auto 3.8 % (2-4); Hematocrit 38.1 % (36-46); Hemoglobin 12.9 g/dL (12.0-16.0); Lymphocytes Absolute Auto 1200 /uL (1100-4500); Lymphocytes Percent Auto 13.8 % (25-40); Mean Corpuscular HGB Conc 33.8 % (30-36); Mean Corpuscular Hemoglobin 30.9 PG (26-34); Mean Corpuscular Volume 91.4 fL (80-100); Monocytes Absolute Auto 500 /uL (0-900); Monocytes Percent Auto 6.2 % (3-14); Neutrophils Absolute Auto 6700 /uL (1500-7000); Neutrophils Percent Auto 75.5 % (50-75); Platelet Count 439 X10^3/uL (150-400); Red Blood Cell Count 4.17 X10^6/uL (4.0-5.2); Red Cell Distribution Width 13.5 % (11.6-14.8); White Blood Cell Count 8.9 X10^3/uL (4.5-11.0)
[2023-07-18 16:27] LABS: Alanine Aminotransferase 21 IU/L (<35); Albumin Globulin Ratio 1.4 (1.0-2.8); Alkaline Phosphatase 75 U/L (38-126); Aspartate Aminotransferase 28 IU/L (14-36); BUN Creatinine Ratio 17.9 (6-22); Bilirubin Total 0.3 mg/dL (0.2-1.3); Blood Urea Nitrogen 15 mg/dL (7-17); Calcium 9.6 mg/dL (8.4-10.2); Carbon Dioxide 28 mmol/L (22-32); Chloride 103 mmol/L (98-107); Estimated Glomerular Filt Rate > 60 mL/min (>60); Globulin 2.8 g/dL (1.7-4.1); Glucose 91 mg/dL (80-110); HEMOLYSIS < 15 (0-50); Potassium 4.7 mmol/L (3.4-5.1); Sodium 138 mmol/L (137-145); Total Protein 6.8 g/dL (6.3-8.2)
[2023-07-18 17:14] LABS: Appearance Urine UA CLEAR; Bilirubin Urine UA NEGATIVE (NEGATIVE); Color Urine UA YELLOW; Glucose Urine UA NEGATIVE (Negative); Ketones Urine UA 1+ (NEGATIVE); Leukocyte Esterase Urine UA NEGATIVE (NEGATIVE); Nitrite Urine UA NEGATIVE (Negative); Occult Blood Urine UA NEGATIVE (Negative); Protein Urine UA NEGATIVE (Negative); Specific Gravity Urine UA >=1.030 (1.000-1.035)
[2023-07-18 17:15] LABS: pH Urine UA 5.5 (4.5-8.0)
[2023-07-18 17:31] LABS: Bacteria Urine Many (>30); Culture Indicated Urine Cult Not Indicated; RBC Urine None Seen (0-5/HPF); Squamous Epithelial Cell Urine 5-10 /HPF (0-5/HPF); WBC Urine 1-5/HPF (0-5/HPF)
== END ==
PROVIDERS: PCP Family Medicine; Referring Provider Family Medicine; Visit Provider Family Medicine
DX: R10.32 Left lower quadrant pain (principal); R30.0 Dysuria
CPT/HCPCS: 36415; 80053; 81001; 85025

== ENCOUNTER → 2023-07-19 13:00 | Outpatient (CLI) | payer OTHER, SELFPAY ==
--- NOTE | 2023-07-19 14:37 | DI.CT.S_ITS ---
PROCEDURE: CT ABDOMEN PELVIS W CON INDICATIONS: abd pain and distention TECHNIQUE: After the administration of intravenous contrast, axial sections acquired from the lung bases to the pubic symphysis. Coronal and sagittal reformats were performed. For radiation dose reduction, the following was used: automated exposure control, adjustment of mA and/or kV according to patient size. COMPARISON: [facility], CT, ABDOMEN/PELVIS WITH CONTRAST, 12/05/2017, 12:11. FINDINGS: Image quality: Excellent. Lung bases: Small right pleural effusion. Heart: Marked LAD calcifications for age. ABDOMEN: Liver: No solid mass. Smooth margin. Gallbladder and biliary tree: Gallbladder is absent. No biliary dilation Spleen: Normal size. Pancreas: No ductal dilation. Adrenal glands: Mild nodular thickening of the anterior left adrenal gland, without measurable nodule; this is unchanged from prior. Kidneys: No hydronephrosis. No solid mass. No complex renal cysts which requires follow-up. Stomach and Bowel: Colonic diverticulosis without evidence of diverticulitis. Peritoneum: Small volume ascites. Increased haziness in the omentum, with questionable nodularity. Ventral Wall: No hernias. Abdominal Nodes: No retroperitoneal or mesenteric adenopathy by size criteria. Vessels: Aorta and inferior vena cava are normal in size. PELVIS: Pelvic Organs: Unremarkable. Bladder: Unremarkable. Pelvic Nodes: No enlarged lymph nodes. Miscellaneous: No hernias are seen. Bones: Unremarkable. IMPRESSION: New small volume ascites with haziness in the omentum and questionable nodularity. 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 No primary mass is identified, but common etiology is gynecologic malignancy or GI malignancy in this age group. Consider diagnostic paracentesis, although volume may be too little. Marked LAD calcifications for age. Consider cardiology referral. Dictated by: Jesus Grey M.D. on 07/19/2023 at 15:05 Approved by: Jesus Grey M.D. on 07/19/2023 at 15:09
== END ==
PROVIDERS: PCP Family Medicine; Referring Provider Family Medicine; Visit Provider Family Medicine
DX: R10.32 Left lower quadrant pain (principal); R18.8 Other ascites; I25.10 Atherosclerotic heart disease of native coronary artery without angina pectoris
CPT/HCPCS: 74177; Q9967

== ENCOUNTER → 2023-07-20 11:16 | Outpatient (CLI) | payer OTHER, SELFPAY ==
--- NOTE | 2023-07-20 11:17 | DI.US.S_ITS ---
PROCEDURE: US PELVIC COMPLETE INDICATIONS: PELVIC PAIN. OMENTAL CAKING/ASCITES ON CT. TECHNIQUE: Real-time scanning was performed of the pelvic organs, with image documentation. Additional endovaginal scanning was necessary due to incomplete visualization of the adnexal and endometrial structures by transabdominal scanning. COMPARISON: [facility], CT, CT ABDOMEN PELVIS W CON, 07/19/2023, 14:38. [facility], US, PELVIC COMPLETE, 12/30/2015, 7:10. FINDINGS: Uterus: Uterus is retroverted and normal in size at 5.9 x 4.9 x 3.5 centimeters cm. The myometrium is heterogeneous. The endometrium measures 7.7 mm combined thickness. Thickened endometrium with cystic areas measuring up to 6 millimeters. Trace cervical fluid. Ovaries: The ovaries are not well seen. Other: Large pelvic free fluid with debris. IMPRESSION: 1. Thickened endometrium with cystic component. Recommend endometrial sampling or follow-up ultrasound to assess stability or resolution. 2. Large pelvic free fluid with debris, this is better evaluated on CT abdomen pelvis 07/19/2023. 3. The ovaries are not seen. We strive to produce accurate, complete, and clear reports of imaging services. To assist us in improving patient care, this report was composed using standard report templates and voice recognition software. Therefore, it may contain abnormal punctuation, insertions and/or omissions. Occasional wrong-word or sound-alike substitutions may occur. Though we review the report and make efforts to correct it, we do recommend that the report be read carefully in proper context to recognize any text inaccuracies. Dictated by: James Manzo M.D. on 07/20/2023 at 12:57 Approved by: James Manzo M.D. on 07/20/2023 at 13:00
[2023-07-21 01:45] LABS: Cancer Antigen 125 658 U/mL (0-35); Carcinoembryonic Antigen 1.4 ng/mL (0.1-3.0)
[2023-07-21 14:40] LABS: Cancer (Carbohydrate) Ag 19-9 6 U/mL (0-35)
[2023-07-24 10:31] LABS: Human Epididymis Prot 4 67.2 pmol/L (0.0-96.5)
== END ==
PROVIDERS: PCP Family Medicine; Referring Provider Family Medicine; Visit Provider Family Medicine
DX: R18.8 Other ascites (principal); K66.8 Other specified disorders of peritoneum; R10.2 Pelvic and perineal pain; R93.89 Abnormal findings on diagnostic imaging of other specified body structures
CPT/HCPCS: 36415; 76830; 76856; 82378; 86301; 86304; 86305

== ENCOUNTER → 2023-07-21 15:38 | Outpatient (CLI) | payer OTHER, SELFPAY ==
--- NOTE | 2023-07-21 15:38 | DI.CT.S_ITS ---
PROCEDURE: CT CHEST W CON INDICATIONS: omental thickening with ascites with right side small effusion TECHNIQUE: After the administration of intravenous contrast, 5 mm thick sections acquired from the pulmonary apices to the posterior costophrenic angles. 1 mm axial lung, 5 mm thick coronal and sagittal reformats and 7 mm axial MIP were acquired. For radiation dose reduction, the following was used: automated exposure control, adjustment of mA and/or kV according to patient size. COMPARISON: CT abdomen pelvis 07/19/2023. FINDINGS: Image quality: Good, mildly degraded by motion artifact.. Lungs and pleura: No acute air space opacities. Small right pleural effusion. No pneumothorax. Central and peripheral airways are patent and normal in caliber. Mediastinum: Heart size is normal. No pericardial effusion. Coronary artery calcifications. No mediastinal or hilar adenopathy by size criteria. Thoracic aorta and central pulmonary arteries are normal in size. Esophagus is normal in caliber. No hiatal hernia. Bones and chest wall: No suspicious bony lesions. No vertebral body compression fractures. No axillary or supraclavicular adenopathy by size criteria. Thyroid gland unremarkable. Abdomen: Partially visualized small volume ascites. Please see recent CT abdomen pelvis with contrast 07/19/2023. IMPRESSION: Small right pleural effusion. No focal airspace consolidation or suspicious pulmonary nodule. Approved by: Lillie Spivey M.D. on 07/21/2023 at 23:51
== END ==
PROVIDERS: PCP Family Medicine; Referring Provider Family Medicine; Visit Provider Family Medicine
DX: R10.2 Pelvic and perineal pain (principal); K66.8 Other specified disorders of peritoneum; R18.8 Other ascites; J90 Pleural effusion, not elsewhere classified
CPT/HCPCS: 71260; Q9967

== ENCOUNTER 2023-07-30 10:00 | Emergency (ER) | payer OTHER, SELFPAY ==
[2023-07-30 10:06] VITALS: BP 188/95; PULSE 79; RESP 16; TEMP 36.4; O2SAT 98; BMI 43.8
--- NOTE | 2023-07-30 10:10 | DI.US.S_ITS ---
PROCEDURE: US PERIPH VENOUS LOW EXTREM LT INDICATIONS: LEFT CALF PAIN TECHNIQUE: Real-time imaging, as well as color and pulse Doppler interrogation, were performed of the lower extremity deep veins from the inguinal ligament to the popliteal fossa, with documentation of the visualized calf veins. COMPARISON: None. FINDINGS: The common femoral, femoral, popliteal, and free of intraluminal thrombus. Color and pulse Doppler demonstrate normal phasic intraluminal flow. There is normal augmentation response to distal compression maneuver. There is poor visualization of the calf vasculature secondary to increased body habitus. IMPRESSION: No findings of lower extremity deep venous thrombosis. Calf vasculature is not well visualized. Dictated by: Osman Martínez M.D. on 07/30/2023 at 10:05 Approved by: Osman Martínez M.D. on 07/30/2023 at 10:16
--- NOTE | 2023-07-30 12:12 | ED.EXTPRO ---
HPI - Extremity Problem General Chief complaint: Extremity Problem,Nontraumatic Stated complaint: Possible blood in L/leg Time Seen by Provider: 07/30/23 12:11 Mode of arrival: Family Vehicle History of Present Illness HPI Narrative: 62-year-old female with history of hypothyroidism, hypertension, chronic neuropathy, elevated CA 125 currently going under workup for cancer who presents with complaint of left calf pain. Patient states she normally gets neuropathy in her lower legs it is usually a pressure or ache she does get cramping sometimes. She states she normally takes potassium magnesium for this she has not been taking that the past 2 weeks because she had been forgetful. Patient states last night she had more cramping in her left calf. She states it was worse than typical. She states this morning she woke up and it resolved but then walked around and it came back. Patient states it is since resolved as well. She has not had any swelling no redness no warmth no color changes. She states no other new paresthesias that she appreciates. She denies fevers chills or other symptoms. She reached out her primary care and OBGYN who were helping her through her workup they recommended comfort DVT ultrasound. Patient has not had blood clots in the past. She normally takes 162 mg of aspirin daily she has been off of it for the past 2 weeks because she is been forgetful about taking her medication. Related Data Home Medications Medication Instructions Recorded Confirmed aspirin 81 mg chewable tablet 162 mg PO DAILY 01/01/20 07/18/23 fluticasone propionate 50 1 spray intranasal BID PRN 05/21/20 07/18/23 mcg/actuation nasal spray,suspension ferrous sulfate 325 mg (65 mg 325 mg PO DAILY 08/20/21 07/18/23 iron) tablet magnesium 250 mg tablet 250 mg PO DAILY 08/20/21 07/18/23 potassium gluconate 595 mg (99 mg) 595 mg PO DAILY 08/20/21 07/18/23 tablet Previous Rx's Medication Instructions Recorded albuterol sulfate 90 mcg/actuation 2 puff inhalation Q6-8H PRN 06/22/18 aerosol inhaler (Proventil HFA) shortness of breath #8.5 grams triamcinolone acetonide 0.1 % See Rx Instructions topical BID 08/20/21 topical cream #15 grams pramipexole 0.5 mg tablet (Mirapex) 0.5 mg PO BEDTIME #90 tabs 09/16/22 lisinopril 20 mg tablet 20 mg PO DAILY #90 tabs 04/01/23 levothyroxine 175 mcg tablet See Rx Instructions .Route 04/11/23 .COMPLEX #90 tabs hydroxyzine HCl 25 mg tablet 25 mg PO BEDTIME insomnia #30 tabs 07/28/23 Allergies Allergy/AdvReac Type Severity Reaction Status Date / Time hydromorphone [HYDROMORPHONE] Allergy Mild Verified 07/30/23 10:10 shellfish derived Allergy Mild shrimp Verified 07/30/23 10:10 [SHELLFISH DERIVED] azithromycin [AZITHROMYCIN] AdvReac Intermediate heart Verified 07/30/23 10:10 palpitations measles, mumps, and rubella AdvReac Intermediate Maculopapular Verified 07/30/23 10:10 vaccine rash atorvastatin [ATORVASTATIN] AdvReac Mild sore throat Verified 07/30/23 10:10 cefuroxime [CEFUROXIME] AdvReac Mild gi upset Verified 07/30/23 10:10 morphine [MORPHINE] AdvReac Mild itching Verified 07/30/23 10:10 Sulfa (Sulfonamide AdvReac Mild gi upset Verified 07/30/23 10:10 Antibiotics) [SULFA (SULFONAMIDE ANTIBIOTICS)] trimethoprim [TRIMETHOPRIM] AdvReac Mild gi upset Verified 07/30/23 10:10 Review of Systems Review of Systems ROS Unobtainable: All systems reviewed & are unremarkable except as noted in HPI and below Patient History Medical History History of upper GI x-ray series (12/14/04) Anemia (~1987) Vitamin D deficiency (~09/2009) Arthritis (~1985) Allergic rhinitis (~1981) RLS (restless legs syndrome) (~2007) Headache Sciatica of right side without back pain (2007) Shoulder pain (2011) Trimalleolar fracture (04/22/86) Right ankle pain (04/1986) Multiple acquired skin tags (~1979) 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) Vertigo (1996) Tinnitus (1996) Hearing loss (1996) Hemorrhoid (~2011) Heart palpitations (~2009) Hyperlipidemia (1991) Hypertension (2007) GERD (gastroesophageal reflux disease) (2004) Chicken pox (07/20/74) Measles Migraines (~1989) Anxiety (~2006) Hayfever (1981) Hypothyroidism (09/2010) Acute meniscal tear of left knee, initial encounter (10/23/15) Left-sided low back pain without sciatica (09/23/15) Endometrial polyp Surgical History Anesthesia History of esophagogastroduodenoscopy (EGD) (06/09/15) Status post ankle fusion (09/18/92) Status post hardware removal (09/1986) Status post hardware removal (06/1986) Status post surgical manipulation of ankle joint (04/22/86) Status post surgery (01/16/16) Status post knee surgery (12/09/15) Status post colonoscopy (06/02/10) Status post tubal ligation (03/30/01) Status post delivery (03/30/01) Status post dilation and curettage (02/12/99) Status post delivery (06/21/97) Status post dilation and curettage (04/22/96) Status post cholecystectomy (06/27/92) Family History Brother Age: 51 High cholesterol Daughter Age: 26 Asthma Father Age: 84 Hx of heart bypass surgery Hypertension High cholesterol Heart disease TIA (transient ischemic attack) TGA (transient global amnesia) Grandmother History of heart attack Kidney malignancy Hypertension High cholesterol Stroke Mother Age: 84 Diabetes mellitus Heart attack High cholesterol Hypertension Diabetic neuropathy Grandfather Hx of heart bypass surgery Alzheimer's disease Grandmother Diabetes mellitus Hypertension Congestive heart failure Sister Age: 62 High cholesterol Sister Age: 56 Smoker Celiac disease Sister Age: 53 Neuropathy, lateral femoral cutaneous nerve Hypothyroidism Anxiety Daughter Age: 42 No problems noted. Social History Smoking Status: Never smoker substance use type: does not use Smoking Status: Never smoker Exam Narrative Exam Narrative: GENERAL: Alert and oriented x three, obese female in no acute distress. HEENT: Head normocephalic, atraumatic, EOMI, pupils reactive, face symmetric, moist mucous membranes NECK: Supple, full range of motion CARDIOVASCULAR: Regular rate and rhythm without murmurs, rubs or gallops. RESPIRATORY: Breath sounds equal bilaterally, no wheezes rales or rhonchi. ABDOMEN: Soft, nontender. Normoactive bowel sounds all 4 quadrants. No guarding or rebound, rigidity, no mass : No CVA tenderness EXTREMITIES: Normal range of motion, no clubbing or edema. Neurovascularly intact. 2+ pulse, no swelling right compared to left. No warmth erythema or skin changes no pain with palpation, patient has normal range of motion. 5/5 muscle strength. NEUROLOGICAL: Cranial nerves II through XII grossly intact. Moving all extremities SKIN: Warm, dry, no petechiae, no rashes or lesions. Initial Vital Signs Initial Vital Signs: Vital Signs Temperature 97.6 F 07/30/23 10:06 Pulse Rate 79 07/30/23 10:06 Respiratory Rate 16 07/30/23 10:06 Blood Pressure 188/95 H 07/30/23 10:06 Pulse Oximetry 98 07/30/23 10:06 Oxygen Delivery Method Room Air 07/30/23 10:06 Course Orders Ordered: ED Orders 07/30/23 10:10 US perip venous low extrem lt Stat Vital Signs Vital signs: Vital Signs - 8 hr 07/30/23 12:42 Pulse Rate 67 Respiratory Rate 17 Blood Pressure 181/87 H Pulse Oximetry 96 Oxygen Delivery Method Room Air MDM - Extremity (Nontraumatic) Imaging Data US - DVT: Radiologist's Impression: [address] [address] Ultrasound Report Signed Patient: Sandra Ly MR#: [id number] : 1960 Acct:[id number] Age/Sex: 62 / F Date of Service: 07/30/23 Loc: ED Accession Number: [id number] Procedure: US perip venous low extrem lt Ordering Provider: Zarina Vinson D.O. PROCEDURE: US PERIPH VENOUS LOW EXTREM LT INDICATIONS: LEFT CALF PAIN TECHNIQUE: Real-time imaging, as well as color and pulse Doppler interrogation, were performed of the lower extremity deep veins from the inguinal ligament to the popliteal fossa, with documentation of the visualized calf veins. COMPARISON: None. FINDINGS: The common femoral, femoral, popliteal, and free of intraluminal thrombus. Color and pulse Doppler demonstrate normal phasic intraluminal flow. There is normal augmentation response to distal compression maneuver. There is poor visualization of the calf vasculature secondary to increased body habitus. IMPRESSION: No findings of lower extremity deep venous thrombosis. Calf vasculature is not well visualized. Dictated by: Osman Martínez M.D. on 07/30/2023 at 10:05 Approved by: Osman Martínez M.D. on 07/30/2023 at 10:16 MDM Narrative Medical decision making narrative: 62-year-old female who presents with concern of increased cramping in her left calf. Patient notes she has had issues with neuropathy and cramping in her leg she has been off her typical medications including her potassium and magnesium but she states this was a little bit different. She has not been formally diagnosed with cancer but has not elevated CA 125 other workup so far has been negative but they are in process of working her up for suspected cancer. She is not had blood clots in the past. DVT ultrasound is negative but does not fully visualize the calf region. Patient does not have any other external changes consistent with DVT. Discussed with patient would recommend if symptoms continue to be resolved continue her aspirin 162 mg and regular daily medications. If she is having any persistent symptoms or new or worsening changes she can return here for Re visualization with ultrasound. Patient feels comfortable with this plan all questions answered. Patient did take her aspirin today. Discharge Plan Departure Patient Disposition: Home Clinical Impression: Pain of left calf Instructions: DI for Leg Pain Activity Restrictions/Additional Instructions: Your ultrasound today did not fully visualize the blood vessels in her calf but the popliteal and higher up blood vessels did not show any signs of clot. Please follow-up with your physician to discuss if they would like to repeat ultrasound your leg in the next week. I would recommend restarting your aspirin 162 mg daily as well as your other daily medications. If you have new or worsening or persistent symptoms please return for repeat imaging of your lower extremity, please return for fevers, rapidly worsening pain, new swelling, redness, pale or blue leg, new weakness, loss of sensation or other new or concerning changes. Prescriptions: No Action magnesium 250 mg tablet 250 mg PO DAILY potassium gluconate 595 mg (99 mg) tablet 595 mg PO DAILY ferrous sulfate 325 mg (65 mg iron) tablet 325 mg PO DAILY triamcinolone acetonide 0.1 % cream See Rx Instructions topical BID Qty: 15 0RF Rx Instructions: 1 mg topically bid TOP BID pramipexole [Mirapex] 0.5 mg tablet 0.5 mg PO BEDTIME Qty: 90 1RF lisinopril 20 mg tablet 20 mg PO DAILY Qty: 90 2RF levothyroxine 175 mcg tablet See Rx Instructions .ROUTE .COMPLEX Qty: 90 1RF Dose Instruction: TAKE ONE TABLET BY MOUTH ONE TIME DAILY Rx Instructions: TAKE ONE TABLET BY MOUTH ONE TIME DAILY hydroxyzine HCl 25 mg tablet 25 mg PO BEDTIME Qty: 30 0RF Rx Instructions: take one or two tablets as needed at bedtime fluticasone propionate 50 mcg/actuation spray,suspension 1 spray Intranasal BID PRN Rx Instructions: seasonal albuterol sulfate [Proventil HFA] 90 mcg/actuation HFA aerosol inhaler 2 puff INHALATION Q6-8H PRN (Reason: shortness of breath) Qty: 8.5 1RF Rx Instructions: PRN: rarely used aspirin 81 mg Tablet,Chewable 162 mg PO DAILY Referrals: Stan Kothari MD [Primary Care Provider] - Stand Alone Forms: Patient Portal/API
[2023-07-30 12:42] VITALS: BP 181/87; PULSE 67; RESP 17; O2SAT 96
== END 2023-07-30 12:45 | disposition home or self-care (01) ==
PROVIDERS: Emergency Provider Emergency Medicine; PCP Family Medicine
DX: M79.605 Pain in left leg (principal)
CPT/HCPCS: 93971; 99281; 99283

== ENCOUNTER 2023-07-31 19:40 | Emergency (ER) | payer OTHER, SELFPAY ==
[2023-07-31 19:56] VITALS: BP 164/88; PULSE 72; RESP 18; TEMP 36.5; O2SAT 97; BMI 43.8
--- NOTE | 2023-07-31 21:09 | DI.US.S_ITS ---
PROCEDURE: US PERIP VENOUS LOW EXTREM LT INDICATIONS: r/o dvt TECHNIQUE: Real-time imaging, as well as color and pulse Doppler interrogation, were performed of the lower extremity deep veins from the inguinal ligament to the popliteal fossa, with documentation of the visualized calf veins. COMPARISON: [facility], , [facility] VENOUS LOW EXTREM LT, 07/30/2023, 10:45. FINDINGS: The common femoral, femoral, popliteal, and the visualized calf veins are normally compressible, and free of intraluminal thrombus. Color and pulse Doppler demonstrate normal phasic intraluminal flow. There is normal augmentation response to distal compression maneuver. IMPRESSION: No findings of lower extremity deep venous thrombosis. Dictated by: Hannah Benavides M.D. on 07/31/2023 at 22:18 Approved by: Hannah Benavides M.D. on 07/31/2023 at 22:20
--- NOTE | 2023-08-01 00:05 | ED.EXTPRO ---
HPI - Extremity Problem General Chief complaint: Extremity Problem,Nontraumatic Stated complaint: left leg pain/bulging Time Seen by Provider: 07/31/23 21:06 Source: patient Mode of arrival: Ambulatory History of Present Illness HPI Narrative: Patient 62-year-old female presenting today with left leg pain. She is history of hypothyroid hypertension chronic neuropathy she is an elevated CEA and CA 125 with a new workup of cancer. CT abdomen pelvis from 07/19/2023 shows a small amount of ascites haziness in the omental home questionable gynecologic versus GI malignancy. She is being worked up. However presents today with left leg and calf pain. She was seen evaluated here yesterday for the same she would a negative DVT ultrasound of technique may not happen great. Today she presents with something similar. However she reports stocking-glove like feeling over her foot and calf and her daughter noticed bulging veins in the back of her calf which have now disappeared. No erythema no significant swelling. She reports that she is chronic ongoing pain off and on in her legs however with her new finding she is concerned. She no longer has significant pain. She denies any chest pain or palpitations. Her daughter sleeping and feels worried. Related Data Home Medications Medication Instructions Recorded Confirmed aspirin 81 mg chewable tablet 162 mg PO DAILY 01/01/20 07/18/23 fluticasone propionate 50 1 spray intranasal BID PRN 05/21/20 07/18/23 mcg/actuation nasal spray,suspension ferrous sulfate 325 mg (65 mg 325 mg PO DAILY 08/20/21 07/18/23 iron) tablet magnesium 250 mg tablet 250 mg PO DAILY 08/20/21 07/18/23 potassium gluconate 595 mg (99 mg) 595 mg PO DAILY 08/20/21 07/18/23 tablet Previous Rx's Medication Instructions Recorded albuterol sulfate 90 mcg/actuation 2 puff inhalation Q6-8H PRN 06/22/18 aerosol inhaler (Proventil HFA) shortness of breath #8.5 grams triamcinolone acetonide 0.1 % See Rx Instructions topical BID 08/20/21 topical cream #15 grams pramipexole 0.5 mg tablet (Mirapex) 0.5 mg PO BEDTIME #90 tabs 09/16/22 lisinopril 20 mg tablet 20 mg PO DAILY #90 tabs 04/01/23 levothyroxine 175 mcg tablet See Rx Instructions .Route 04/11/23 .COMPLEX #90 tabs hydroxyzine HCl 25 mg tablet 25 mg PO BEDTIME insomnia #30 tabs 07/28/23 Allergies Allergy/AdvReac Type Severity Reaction Status Date / Time hydromorphone [HYDROMORPHONE] Allergy Mild Verified 07/31/23 19:55 shellfish derived Allergy Mild shrimp Verified 07/31/23 19:55 [SHELLFISH DERIVED] azithromycin [AZITHROMYCIN] AdvReac Intermediate heart Verified 07/31/23 19:55 palpitations measles, mumps, and rubella AdvReac Intermediate Maculopapular Verified 07/31/23 19:55 vaccine rash atorvastatin [ATORVASTATIN] AdvReac Mild sore throat Verified 07/31/23 19:55 cefuroxime [CEFUROXIME] AdvReac Mild gi upset Verified 07/31/23 19:55 morphine [MORPHINE] AdvReac Mild itching Verified 07/31/23 19:55 Sulfa (Sulfonamide AdvReac Mild gi upset Verified 07/31/23 19:55 Antibiotics) [SULFA (SULFONAMIDE ANTIBIOTICS)] trimethoprim [TRIMETHOPRIM] AdvReac Mild gi upset Verified 07/31/23 19:55 Patient History Medical History History of upper GI x-ray series (12/14/04) Anemia (~1987) Vitamin D deficiency (~09/2009) Arthritis (~1985) Allergic rhinitis (~1981) RLS (restless legs syndrome) (~2007) Headache Sciatica of right side without back pain (2007) Shoulder pain (2011) Trimalleolar fracture (04/22/86) Right ankle pain (04/1986) Multiple acquired skin tags (~1979) 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) Vertigo (1996) Tinnitus (1996) Hearing loss (1996) Hemorrhoid (~2011) Heart palpitations (~2009) Hyperlipidemia (1991) Hypertension (2007) GERD (gastroesophageal reflux disease) (2004) Chicken pox (07/20/74) Measles Migraines (~1989) Anxiety (~2006) Hayfever (1981) Hypothyroidism (09/2010) Acute meniscal tear of left knee, initial encounter (10/23/15) Left-sided low back pain without sciatica (09/23/15) Endometrial polyp Surgical History Anesthesia History of esophagogastroduodenoscopy (EGD) (06/09/15) Status post ankle fusion (09/18/92) Status post hardware removal (09/1986) Status post hardware removal (06/1986) Status post surgical manipulation of ankle joint (04/22/86) Status post surgery (01/16/16) Status post knee surgery (12/09/15) Status post colonoscopy (06/02/10) Status post tubal ligation (03/30/01) Status post delivery (03/30/01) Status post dilation and curettage (02/12/99) Status post delivery (06/21/97) Status post dilation and curettage (04/22/96) Status post cholecystectomy (06/27/92) Family History Brother Age: 51 High cholesterol Daughter Age: 26 Asthma Father Age: 84 Hx of heart bypass surgery Hypertension High cholesterol Heart disease TIA (transient ischemic attack) TGA (transient global amnesia) Grandmother History of heart attack Kidney malignancy Hypertension High cholesterol Stroke Mother Age: 84 Diabetes mellitus Heart attack High cholesterol Hypertension Diabetic neuropathy Grandfather Hx of heart bypass surgery Alzheimer's disease Grandmother Diabetes mellitus Hypertension Congestive heart failure Sister Age: 62 High cholesterol Sister Age: 56 Smoker Celiac disease Sister Age: 53 Neuropathy, lateral femoral cutaneous nerve Hypothyroidism Anxiety Daughter Age: 42 No problems noted. Social History Smoking Status: Never smoker substance use type: does not use Smoking Status: Never smoker Substance Use Type: does not use Exam Initial Vital Signs Initial Vital Signs: Vital Signs Temperature 97.7 F 07/31/23 19:56 Pulse Rate 72 07/31/23 19:56 Respiratory Rate 18 07/31/23 19:56 Blood Pressure 164/88 H 07/31/23 19:56 Pulse Oximetry 97 07/31/23 19:56 Oxygen Delivery Method Room Air 07/31/23 19:56 GENERAL: Alert very pleasant 62-year-old female CARDIOVASCULAR: peripheral pulses in tact, cap refill <2 sec RESPIRATORY: No respiratory distress, speaks in full sentences without difficulty EXTREMITIES: Normal range of motion, no clubbing or edema. Neurovascularly intact Also extremity distal pedal pulse intact no obvious varicose veins present now however did see a picture and it look like a varicose vein. No erythema calf is nontender tight. NEUROLOGICAL: Cranial nerves II through XII grossly intact. Normal gait and speech. SKIN: Warm, dry, no petechiae, no rashes or lesions. Course Orders Ordered: ED Orders 07/31/23 21:09 [facility] venous low extrem lt Stat Vital Signs Vital signs: Vital Signs - 8 hr 07/31/23 19:56 08/01/23 00:26 Temperature 97.7 F Pulse Rate 72 61 Respiratory Rate 18 16 Blood Pressure 164/88 H 134/77 Pulse Oximetry 97 100 Oxygen Delivery Method Room Air Room Air MDM - Extremity (Nontraumatic) Imaging Data US - DVT: Radiologist's Impression: PROCEDURE: [facility] VENOUS LOW EXTREM LT INDICATIONS: r/o dvt TECHNIQUE: Real-time imaging, as well as color and pulse Doppler interrogation, were performed of the lower extremity deep veins from the inguinal ligament to the popliteal fossa, with documentation of the visualized calf veins. COMPARISON: [facility], [facility] VENOUS LOW EXTREM LT, 07/30/2023, 10:45. FINDINGS: The common femoral, femoral, popliteal, and the visualized calf veins are normally compressible, and free of intraluminal thrombus. Color and pulse Doppler demonstrate normal phasic intraluminal flow. There is normal augmentation response to distal compression maneuver. IMPRESSION: No findings of lower extremity deep venous thrombosis. Dictated by: Hannah Benavides M.D. on 07/31/2023 at 22:18 MDM Narrative Medical decision making narrative: Patient is 62-year-old female with probable cancer diagnosis of unclear origin at this time presenting today with left leg pain. She is describing almost what sounds like neuropathy she had an obvious varicose vein she is no obvious swelling or erythema calf is soft. She again has a negative ultrasound today. We did discuss doing blood work possible dimer. However I suspect with likely cancer D-dimer is probably elevated however if negative that would be helpful. This time she declines having blood work done she would like to just talk to her doctors in the morning. At this time I think unlikely to be a DVT she sounds more like what she was describing is more like neuropathy. We did discuss wearing compression socks having repeat ultrasound possibly blood work if symptoms continue in about 1 week. She is also well aware of that cancer can make her hypercoagulable we went over warning signs when to return to ED if she should have any and your worsening symptoms Discharge Plan Departure Patient Disposition: Home Clinical Impression: Varicose vein of leg Instructions: DI for Varicose Veins Activity Restrictions/Additional Instructions: *You have been diagnosed with varicose vein *What to do: At this time 2nd ultrasound is negative. However it is still possible you could still have a clot you likely have an unfortunate cancer diagnosis. We talked about a blood test. However at this time I do recommend that you wear compression sock have a repeat ultrasound possibly blood work within 1 week. *Continue to take medications as directed *Follow up with your primary care provider in 2-3 days or call [phone] *Return to ER if you should have leg pain swelling chest pain palpitations shortness of breath or any new, worsening or concerning symptoms Prescriptions: No Action magnesium 250 mg tablet 250 mg PO DAILY potassium gluconate 595 mg (99 mg) tablet 595 mg PO DAILY ferrous sulfate 325 mg (65 mg iron) tablet 325 mg PO DAILY triamcinolone acetonide 0.1 % cream See Rx Instructions topical BID Qty: 15 0RF Rx Instructions: 1 mg topically bid TOP BID pramipexole [Mirapex] 0.5 mg tablet 0.5 mg PO BEDTIME Qty: 90 1RF lisinopril 20 mg tablet 20 mg PO DAILY Qty: 90 2RF levothyroxine 175 mcg tablet See Rx Instructions .ROUTE .COMPLEX Qty: 90 1RF Dose Instruction: TAKE ONE TABLET BY MOUTH ONE TIME DAILY Rx Instructions: TAKE ONE TABLET BY MOUTH ONE TIME DAILY hydroxyzine HCl 25 mg tablet 25 mg PO BEDTIME Qty: 30 0RF Rx Instructions: take one or two tablets as needed at bedtime fluticasone propionate 50 mcg/actuation spray,suspension 1 spray Intranasal BID PRN Rx Instructions: seasonal albuterol sulfate [Proventil HFA] 90 mcg/actuation HFA aerosol inhaler 2 puff INHALATION Q6-8H PRN (Reason: shortness of breath) Qty: 8.5 1RF Rx Instructions: PRN: rarely used aspirin 81 mg Tablet,Chewable 162 mg PO DAILY Referrals: Stan Kothari MD [Primary Care Provider] - Stand Alone Forms: Patient Portal/API
[2023-08-01 00:26] VITALS: BP 134/77; PULSE 61; RESP 16; O2SAT 100
== END 2023-08-01 00:27 | disposition home or self-care (01) ==
PROVIDERS: Emergency Provider Emergency Medicine; PCP Family Medicine
DX: I83.92 Asymptomatic varicose veins of left lower extremity (principal)
CPT/HCPCS: 93971; 99281; 99283

== ENCOUNTER → 2023-08-11 11:25 | Outpatient (CLI) | payer OTHER, SELFPAY ==
[2023-08-11 12:34] LABS: Add Manual Diff / Slide Review NO; Basophils Absolute Auto 100 /uL (0-100); Basophils Percent Auto 0.8 % (0-2); Eosinophils Absolute Auto 100 /uL (0-450); Eosinophils Percent Auto 1.1 % (2-4); Hematocrit 38.7 % (36-46); Hemoglobin 13.3 g/dL (12.0-16.0); Lymphocytes Absolute Auto 1000 /uL (1100-4500); Lymphocytes Percent Auto 10.4 % (25-40); Mean Corpuscular HGB Conc 34.2 % (30-36); Mean Corpuscular Hemoglobin 31.1 PG (26-34); Mean Corpuscular Volume 90.8 fL (80-100); Monocytes Absolute Auto 600 /uL (0-900); Monocytes Percent Auto 6.1 % (3-14); Neutrophils Absolute Auto 7800 /uL (1500-7000); Neutrophils Percent Auto 81.6 % (50-75); Platelet Count 500 X10^3/uL (150-400); Red Blood Cell Count 4.26 X10^6/uL (4.0-5.2); Red Cell Distribution Width 13.7 % (11.6-14.8); White Blood Cell Count 9.6 X10^3/uL (4.5-11.0)
== END ==
PROVIDERS: PCP Family Medicine; Referring Provider Family Medicine; Visit Provider Family Medicine
DX: K66.8 Other specified disorders of peritoneum (principal); R18.8 Other ascites
CPT/HCPCS: 36415; 85025

== ENCOUNTER → 2023-08-30 15:52 | Outpatient (CLI) | payer OTHER, SELFPAY ==
--- NOTE | 2023-08-30 15:54 | DI.US.S_ITS ---
PROCEDURE: US PARACENTESIS INDICATIONS: THERAPEUTIC PARACENTESIS TECHNIQUE: The indications, alternatives, benefits, risks, and complications of the procedure were explained to the patient. Written informed consent was obtained and placed in the chart. The abdomen and pelvis were examined sonographically, and an appropriate site was chosen for paracentesis. The skin was prepared and draped in the usual sterile fashion, and 1% lidocaine was infiltrated from the skin down through the peritoneal surface. A 19-gauge catheter-covered needle was then introduced into the peritoneal space, the catheter was advanced and the needle was withdrawn, and thereafter peritoneal fluid was withdrawn. The catheter was then removed and a dressing was applied. The fluid was discarded if the clinician did not order diagnostic testing of the fluid. COMPARISON: None. FINDINGS: Access site: Left lower quadrant Needle: One-Step centesis catheter with introducer needle. Fluid volume and description: 5000 mL; clear Fluid sent for diagnostic testing: Not requested. Medications: 1% lidocaine for local anaesthesia. Complications: None. IMPRESSION: Successful ultrasound-guided paracentesis. Dictated by: Hannah Benavides M.D. on 08/30/2023 at 19:27 Approved by: Hannah Benavides M.D. on 08/30/2023 at 19:28
== END ==
PROVIDERS: PCP Family Medicine; Referring Provider Family Medicine; Visit Provider Family Medicine
DX: K66.8 Other specified disorders of peritoneum (principal); R97.1 Elevated cancer antigen 125 [CA 125]; R18.0 Malignant ascites
CPT/HCPCS: 49083

== ENCOUNTER → 2023-09-14 13:33 | Outpatient (CLI) | payer OTHER, SELFPAY ==
--- NOTE | 2023-09-14 13:34 | DI.RAD.S_ITS ---
PROCEDURE: XR CHEST 2V INDICATIONS: shortness of breath already had a thoracentesis TECHNIQUE: 2 views of the chest were acquired. COMPARISON: [facility], [facility], XR CHEST 1V, 01/01/2020, 17:50. [facility], [facility], CHEST 1 VIEW, 10/20/2015, 22:00. FINDINGS: Surgical changes and devices: Right chest wall Port-A-Cath. Lungs and pleura: Blunting of left costophrenic angle. Right medial basilar opacity. Prominent interstitial markings. Mediastinum: Mediastinal contours are normal. Heart size is normal. Bones and chest wall: No suspicious bony abnormalities. Soft tissues appear unremarkable. IMPRESSION: Small left pleural effusion. Prominent interstitial markings, may represent edema versus infection, recommend clinical correlation. Right medial basilar opacity, concerning for infection. Dictated by: James Manzo M.D. on 09/14/2023 at 14:44 Approved by: James Manzo M.D. on 09/14/2023 at 14:45
[2023-09-14 15:25] LABS: Hematocrit 37.9 % (36-46); Hemoglobin 12.4 g/dL (12.0-16.0)
== END ==
PROVIDERS: PCP Family Medicine; Referring Provider Family Medicine; Visit Provider Family Medicine
DX: R06.02 Shortness of breath (principal); R09.89 Other specified symptoms and signs involving the circulatory and respiratory systems; K62.5 Hemorrhage of anus and rectum; J90 Pleural effusion, not elsewhere classified
CPT/HCPCS: 36415; 71046; 85014; 85018

== ENCOUNTER 2023-09-19 20:28 | Emergency (ER) | payer OTHER, SELFPAY ==
[2023-09-19] VITALS (8 sets, daily range): BP systolic 124–152; BP diastolic 66–77; PULSE 76–91; RESP 19–32; TEMP 36.3; O2SAT 95–97; BMI 41.0
[2023-09-19 21:27] LABS: Add Manual Diff / Slide Review NO; Basophils Absolute Auto 0 /uL (0-100); Basophils Percent Auto 0.7 % (0-2); Eosinophils Absolute Auto 200 /uL (0-450); Eosinophils Percent Auto 2.9 % (2-4); Hematocrit 31.6 % (36-46); Hemoglobin 10.6 g/dL (12.0-16.0); Lymphocytes Absolute Auto 800 /uL (1100-4500); Lymphocytes Percent Auto 13.8 % (25-40); Mean Corpuscular HGB Conc 33.5 % (30-36); Mean Corpuscular Hemoglobin 29.7 PG (26-34); Mean Corpuscular Volume 88.7 fL (80-100); Monocytes Absolute Auto 700 /uL (0-900); Monocytes Percent Auto 11.3 % (3-14); Neutrophils Absolute Auto 4200 /uL (1500-7000); Neutrophils Percent Auto 71.3 % (50-75); Platelet Count 355 X10^3/uL (150-400); Red Blood Cell Count 3.56 X10^6/uL (4.0-5.2); Red Cell Distribution Width 14.4 % (11.6-14.8); White Blood Cell Count 5.9 X10^3/uL (4.5-11.0)
[2023-09-19 21:30] LABS: INR 1.2 (0.9-1.3); Prothrombin Time 14.3 SECONDS (9.4-12.5)
--- NOTE | 2023-09-19 21:35 | ED_ITS ---
HPI - General Adult General Chief complaint: Shortness of Breath/Dyspnea Stated complaint: cant breathe states filling up with fluid Time Seen by Provider: 09/19/23 21:35 Source: patient Mode of arrival: Wheelchair History of Present Illness HPI narrative: 63-year-old woman with recently diagnosed stomach cancer developing at the base of an ulcer metastatic to the omentum with complicating ascites. She is being followed at [facility] in [place] has started chemotherapy has a another chemotherapy dose scheduled in 48 hours. She presented to a primary care doctor complaining of increasing dyspnea secondary to volume of ascites. Last time 5 L of ascitic fluid was drained was September 02. Her primary care provider has been trying to get her in to outpatient care for recurrent paracentesis but has not been able to do so. She comes in for symptomatic paracentesis. Related Data Home Medications Medication Instructions Recorded Confirmed aspirin 81 mg chewable tablet 162 mg PO DAILY 01/01/20 09/19/23 ferrous sulfate 325 mg (65 mg 325 mg PO DAILY 08/20/21 09/19/23 iron) tablet magnesium 250 mg tablet 250 mg PO DAILY 08/20/21 09/19/23 potassium gluconate 595 mg (99 mg) 595 mg PO DAILY 08/20/21 09/19/23 tablet pantoprazole 40 mg tablet,delayed 40 mg PO DAILY 09/14/23 09/19/23 release Previous Rx's Medication Instructions Recorded triamcinolone acetonide 0.1 % See Rx Instructions topical BID 08/20/21 topical cream #15 grams pramipexole 0.5 mg tablet (Mirapex) 0.5 mg PO BEDTIME #90 tabs 09/16/22 lisinopril 20 mg tablet 20 mg PO DAILY #90 tabs 04/01/23 levothyroxine 175 mcg tablet See Rx Instructions .Route 04/11/23 .COMPLEX #90 tabs hydroxyzine HCl 25 mg tablet 25 mg PO BEDTIME insomnia #30 tabs 07/28/23 mirtazapine 15 mg tablet 15 mg PO BEDTIME #30 tabs 08/11/23 tramadol 50 mg tablet 50 mg PO TID PRN pain #21 tabs 08/23/23 hydrocodone 5 mg-acetaminophen 325 1 tab PO Q4H PRN pain #20 tabs 09/16/23 mg tablet lidocaine 5 % topical patch See Rx Instructions topical 09/16/23 .COMPLEX #30 ea ondansetron 8 mg disintegrating 8 mg PO Q6-8H PRN nausea and 09/16/23 tablet vomiting #24 tabs sennosides 8.6 mg tablet (senna) 8.6 mg PO DAILY #30 tabs 09/16/23 furosemide 20 mg tablet 20 mg PO DAILY #30 tabs 09/20/23 potassium chloride 8 mEq 8 meq PO DAILY #30 caps 09/20/23 capsule,extended release Allergies Allergy/AdvReac Type Severity Reaction Status Date / Time hydromorphone [HYDROMORPHONE] Allergy Mild Verified 09/19/23 20:32 shellfish derived Allergy Mild shrimp Verified 09/19/23 20:32 [SHELLFISH DERIVED] azithromycin [AZITHROMYCIN] AdvReac Intermediate heart Verified 09/19/23 20:32 palpitations measles, mumps, and rubella AdvReac Intermediate Maculopapular Verified 09/19/23 20:32 vaccine rash atorvastatin [ATORVASTATIN] AdvReac Mild sore throat Verified 09/19/23 20:32 cefuroxime [CEFUROXIME] AdvReac Mild gi upset Verified 09/19/23 20:32 morphine [MORPHINE] AdvReac Mild itching Verified 09/19/23 20:32 Sulfa (Sulfonamide AdvReac Mild gi upset Verified 09/19/23 20:32 Antibiotics) [SULFA (SULFONAMIDE ANTIBIOTICS)] trimethoprim [TRIMETHOPRIM] AdvReac Mild gi upset Verified 09/19/23 20:32 Patient History Medical History History of upper GI x-ray series (12/14/04) Anemia (~1987) Vitamin D deficiency (~09/2009) Arthritis (~1985) Allergic rhinitis (~1981) RLS (restless legs syndrome) (~2007) Headache Sciatica of right side without back pain (2007) Shoulder pain (2011) Trimalleolar fracture (04/22/86) Right ankle pain (04/1986) Multiple acquired skin tags (~1979) 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) Vertigo (1996) Tinnitus (1996) Hearing loss (1996) Hemorrhoid (~2011) Heart palpitations (~2009) Hyperlipidemia (1991) Hypertension (2007) GERD (gastroesophageal reflux disease) (2004) Chicken pox (07/20/74) Measles Migraines (~1989) Anxiety (~2006) Hayfever (1981) Hypothyroidism (09/2010) Acute meniscal tear of left knee, initial encounter (10/23/15) Left-sided low back pain without sciatica (09/23/15) Endometrial polyp Surgical History Anesthesia History of esophagogastroduodenoscopy (EGD) (06/09/15) Status post ankle fusion (09/18/92) Status post hardware removal (09/1986) Status post hardware removal (06/1986) Status post surgical manipulation of ankle joint (04/22/86) Status post surgery (01/16/16) Status post knee surgery (12/09/15) Status post colonoscopy (06/02/10) Status post tubal ligation (03/30/01) Status post delivery (03/30/01) Status post dilation and curettage (02/12/99) Status post delivery (06/21/97) Status post dilation and curettage (04/22/96) Status post cholecystectomy (06/27/92) Family History Brother Age: 52 High cholesterol Daughter Age: 26 Asthma Father Age: 85 Hx of heart bypass surgery Hypertension High cholesterol Heart disease TIA (transient ischemic attack) TGA (transient global amnesia) Grandmother History of heart attack Kidney malignancy Hypertension High cholesterol Stroke Mother Age: 84 Diabetes mellitus Heart attack High cholesterol Hypertension Diabetic neuropathy Grandfather Hx of heart bypass surgery Alzheimer's disease Grandmother Diabetes mellitus Hypertension Congestive heart failure Sister Age: 63 High cholesterol Sister Age: 57 Smoker Celiac disease Sister Age: 54 Neuropathy, lateral femoral cutaneous nerve Hypothyroidism Anxiety Daughter Age: 42 No problems noted. Social History Smoking Status: Never smoker substance use type: does not use Smoking Status: Never smoker Substance Use Type: does not use Exam Initial Vital Signs Initial Vital Signs: Vital Signs Temperature 97.4 F L 09/19/23 20:32 Pulse Rate 84 09/19/23 20:32 Respiratory Rate 32 H 09/19/23 20:32 Blood Pressure 152/77 H 09/19/23 20:32 Pulse Oximetry 95 09/19/23 20:32 Oxygen Delivery Method Room Air 09/19/23 20:32 General: Chronically ill-appearing, dyspneic with significantly distended abdomen. Respiratory: Lungs are clear to auscultation, no wheezing no rales no rhonchi. Full and symmetrical air movement Cardiac: Regular rate and rhythm no murmurs no bruits Abdomen: Soft, significant ascites without tenderness, no rebound or guarding Skin: Warm and dry, no rashes Neurologic: Grossly neurologically intact with no obvious asymmetries or abnormalities Extremities: No trauma, 2 to 3+ bilateral lower extremity edema Psych: Cooperative, appropriate insight and affect Procedures Paracentesis Time of procedure: 23:57 Indication: Ascites Procedure: therapeutic paracentesis Local Anesthetic: lidocaine 1% Amount of anesthesia used (mL): 2 Preparation: sterile prep and drape Fluid: clear (total of 3800L removed before simple drainage stopped) Post Procedure Exam: awake, alert, normal BP, normal HR and normal SpO2 Patient Tolerated Procedure: Well Course Orders Ordered: ED Orders 09/19/23 20:45 EKG-12 Lead Stat 09/19/23 21:05 Complete Blood Count AUTO DIFF Stat Comprehensive Metabolic Panel Stat Lipase Stat Prothrombin Time INR Stat Albumin Human (Albuminar) 25 gm in 100 mls @ 60 mls/hr IV NOW ONE Stop: 09/20/23 00:02 Ondansetron HCl (Ondansetron 4 Mg Odt) 4 mg PO NOW PRN PRN Reason: Nausea And Vomiting Ondansetron HCl (Ondansetron 4 Mg/2 Ml Inj) 4 mg IV NOW PRN PRN Reason: Nausea And Vomiting Vital Signs Vital signs: Vital Signs - 8 hr 09/19/23 20:32 09/19/23 20:45 09/19/23 21:00 Temperature 97.4 F L Pulse Rate 84 82 81 Respiratory Rate 32 H 24 Blood Pressure 152/77 H Pulse Oximetry 95 95 95 Oxygen Delivery Method Room Air 09/19/23 21:30 09/19/23 22:00 09/19/23 22:30 Temperature Pulse Rate 85 91 H 85 Respiratory Rate 22 Blood Pressure Pulse Oximetry 97 97 96 Oxygen Delivery Method 09/19/23 22:43 09/19/23 22:43 09/19/23 23:00 Temperature Pulse Rate 80 76 Respiratory Rate 20 19 Blood Pressure 130/67 Pulse Oximetry 95 97 Oxygen Delivery Method Room Air 09/19/23 23:00 Temperature Pulse Rate Respiratory Rate Blood Pressure 124/66 Pulse Oximetry Oxygen Delivery Method Medical Decision Making Lab Data 09/19/23 21:05 09/19/23 21:05 Labs: Lab Results 09/19/23 Range/Units 21:05 WBC 5.9 (4.5-11.0) X10^3/uL RBC 3.56 L (4.0-5.2) X10^6/uL Hgb 10.6 L (12.0-16.0) g/dL Hct 31.6 L (36-46) % MCV 88.7 (80-100) fL MCH 29.7 (26-34) PG MCHC 33.5 (30-36) % RDW 14.4 (11.6-14.8) % Plt Count 355 (150-400) X10^3/uL Neut % (Auto) 71.3 (50-75) % Lymph % (Auto) 13.8 L (25-40) % [place] % (Auto) 11.3 (3-14) % Eos % (Auto) 2.9 (2-4) % Baso % (Auto) 0.7 (0-2) % Neut # (Auto) 4200 (7967-4354) /uL Lymph # (Auto) 800 L (6872-9198) /uL [place] # (Auto) 700 (0-900) /uL Eos # (Auto) 200 (0-450) /uL Baso # (Auto) 0 (0-100) /uL PT 14.3 H (9.4-12.5) SECONDS INR 1.2 (0.9-1.3) Sodium 132 L (137-145) mmol/L Potassium 4.0 (3.4-5.1) mmol/L Chloride 100 (98-107) mmol/L Carbon Dioxide 27 (22-32) mmol/L BUN 15 (7-17) mg/dL Creatinine 0.88 (0.52-1.04) mg/dL Estimated GFR > 60 (>60) mL/min BUN/Creatinine Ratio 17.0 (6-22) Glucose 113 H (80-110) mg/dL Calcium 8.6 (8.4-10.2) mg/dL Total Bilirubin 0.4 (0.2-1.3) mg/dL AST 22 (14-36) IU/L ALT 14 (<35) IU/L Alkaline Phosphatase 72 (38-126) U/L Total Protein 5.8 L (6.3-8.2) g/dL Albumin 3.0 L (3.5-5.0) g/dL Globulin 2.8 (1.7-4.1) g/dL Albumin/Globulin Ratio 1.1 (1.0-2.8) Lipase 269 (23-300) U/L MDM Narrative Medical decision making narrative: CC: Symptomatic ascites with difficulty breathing. Ascites is secondary to recently diagnosed stomach cancer, currently undergoing chemotherapy Complicating co-morbidities: Recently diagnosed stomach cancer with omental metastases undergoing chemotherapy Data collected from: patient , Medical records reviewed: Was seen by her primary care doctor earlier today who sent her to the emergency department for symptomatic paracentesis. Differential considered: Dyspnea secondary to ascites, possibility of congestive heart failure, acute coronary syndrome, metastatic stomach cancer Exam documented above, pertinent findings include: Patient appears elderly miserable sitting upright to help with breathing with significantly distended abdomen secondary to ascites Lab Test results independently reviewed as above. Pertinent findings: CBC is notable for H&H slightly low at 10.6 and 31.6. White blood cell count of 5.9. Platelets are appropriate at 3:55 a.m. PT is 14.3/INR of 1.2 Chemistries are reassuring with creatinine at 0.8. Total protein is slightly low at 5.8. Albumin is low at 3.0. Lipase is within normal limits Treatments: Paracentesis for symptomatic relief of her ascites is performed. Was willing to consider large volume paracentesis with albumin however, after 3800 cc of fluid draining we are unable to have it more drain. Her body wall thickness was enough that there was likely only a small portion of catheter actually inside the peritoneum. She was feeling symptomatically better. No sample was sent to the lab as this was purely for symptomatic relief. Discussion: 63-year-old woman with ascites causing significant dyspnea. She has recently diagnosed stomach cancer with omental metastases currently undergoing chemotherapy in the hope is that the chemotherapy will reduce the omental lesions enough that the ascites is easier to control. She has a quite a bit of overall fluid overload and I think that a small dose of Lasix would be a reasonable addition. Chemistries today show excellent renal function with creatinine at 0.88 BUN of 15 and GFR greater than 60. Potassium is at 4. We will recommend 20 mg of Lasix for the next 2 weeks along with a small dose of potassium. She has her next chemotherapy scheduled for Tuesday. Can certainly discuss the Lasix addition with her oncologist well as her primary care doctor. She has follow-up with her primary care doctor in approximately 3 weeks. Should she have recurrent symptomatic ascites and not be able to schedule outpatient follow-up she can return to our emergency department for treatment. Questions are answered and she is safe for discharge Discharge Plan Departure Patient Disposition: Home Clinical Impression: Cancer of stomach, Bilateral edema of lower extremity Abdominal ascites Qualifiers: Ascites type: malignant Qualified Code(s): R18.0 - Malignant ascites Instructions: DI for Abdominal Paracentesis Activity Restrictions/Additional Instructions: Thank you for coming in today I am sorry you are suffering so much with the discomfort of this ascites. I was able to get off 3800 cc and then I suspect some of your bowel covered up the tip catheter and I was unable to draining more. Please do keep your appointment with your oncologist. I have given you copies of all of your lab work today for you to share with your oncologist, I suspect you do not need to repeat this tomorrow. With your overall volume overload including the swelling to your lower extremities I suspect that you might benefit from a small dose of Lasix. I have given you 20 mg of Lasix and have suggested that you continue this for at least 2 weeks. Please take the prescribed potassium with the Lasix daily. Make sure you discuss the Lasix with your oncologist as well as Dr. Kothari so informed decisions can be made as to whether or how long this should be continued. Prescriptions were electronically transmitted to [facility] If you find that you are getting worse or develop any new symptoms, please feel free to return to the emergency department for further evaluation. Prescriptions: New furosemide 20 mg tablet 20 mg PO DAILY Qty: 30 0RF potassium chloride 8 mEq capsule, extended release 8 meq PO DAILY Qty: 30 0RF No Action magnesium 250 mg tablet 250 mg PO DAILY potassium gluconate 595 mg (99 mg) tablet 595 mg PO DAILY ferrous sulfate 325 mg (65 mg iron) tablet 325 mg PO DAILY triamcinolone acetonide 0.1 % cream See Rx Instructions topical BID Qty: 15 0RF Rx Instructions: 1 mg topically bid TOP BID pramipexole [Mirapex] 0.5 mg tablet 0.5 mg PO BEDTIME Qty: 90 1RF lisinopril 20 mg tablet 20 mg PO DAILY Qty: 90 2RF levothyroxine 175 mcg tablet See Rx Instructions .ROUTE .COMPLEX Qty: 90 1RF Dose Instruction: TAKE ONE TABLET BY MOUTH ONE TIME DAILY Rx Instructions: TAKE ONE TABLET BY MOUTH ONE TIME DAILY hydroxyzine HCl 25 mg tablet 25 mg PO BEDTIME Qty: 30 0RF Rx Instructions: take one or two tablets as needed at bedtime tramadol 50 mg tablet 50 mg PO TID PRN (Reason: pain) Qty: 21 0RF Rx Instructions: Take one tablet up to every 8 hours as needed for pain pantoprazole 40 mg tablet,delayed release (DR/EC) 40 mg PO DAILY ondansetron 8 mg tablet,disintegrating 8 mg PO Q6-8H PRN (Reason: nausea and vomiting) Qty: 24 2RF sennosides [senna] 8.6 mg tablet 8.6 mg PO DAILY Qty: 30 2RF lidocaine 5 % adhesive patch,medicated See Rx Instructions topical .COMPLEX Qty: 30 1RF Rx Instructions: leave on most painful area for up to 12 hrs topical hydrocodone-acetaminophen 5-325 mg tablet 1 tab PO Q4H PRN (Reason: pain) Qty: 20 0RF mirtazapine 15 mg tablet 15 mg PO BEDTIME Qty: 30 1RF aspirin 81 mg Tablet,Chewable 162 mg PO DAILY Referrals: Stna Kothari MD [Primary Care Provider] - Stand Alone Forms: Patient Portal/API
[2023-09-19 21:36] LABS: Alanine Aminotransferase 14 IU/L (<35); Albumin Globulin Ratio 1.1 (1.0-2.8); Alkaline Phosphatase 72 U/L (38-126); Aspartate Aminotransferase 22 IU/L (14-36); Bilirubin Total 0.4 mg/dL (0.2-1.3); Blood Urea Nitrogen 15 mg/dL (7-17); Calcium 8.6 mg/dL (8.4-10.2); Carbon Dioxide 27 mmol/L (22-32); Chloride 100 mmol/L (98-107); Estimated Glomerular Filt Rate > 60 mL/min (>60); Globulin 2.8 g/dL (1.7-4.1); Glucose 113 mg/dL (80-110); HEMOLYSIS < 15 (0-50); Lipase 269 U/L (23-300); Sodium 132 mmol/L (137-145); Total Protein 5.8 g/dL (6.3-8.2)
[2023-09-20 00:15] VITALS: BP 136/84; PULSE 76; RESP 18; O2SAT 97
== END 2023-09-20 00:15 | disposition home or self-care (01) ==
PROVIDERS: Emergency Provider Emergency Medicine; PCP Family Medicine
DX: C16.9 Malignant neoplasm of stomach, unspecified (principal); R18.0 Malignant ascites; R60.0 Localized edema
CPT/HCPCS: 36415; 49082; 80053; 83690; 85025; 85610; 93005; 93010; 99285; J1642

== ENCOUNTER 2023-09-30 15:21 | Emergency (ER) | payer OTHER, SELFPAY ==
[2023-09-30] VITALS (7 sets, daily range): BP systolic 126–144; BP diastolic 58–77; PULSE 73–79; RESP 16–19; TEMP 36.3; O2SAT 96–97; BMI 40.1
--- NOTE | 2023-09-30 15:34 | ED.GENADULT ---
HPI - General Adult General Chief complaint: Shortness of Breath/Dyspnea Stated complaint: sob Time Seen by Provider: 09/30/23 15:34 Source: patient Mode of arrival: Family Vehicle History of Present Illness HPI narrative: 63-year-old woman recently diagnosed with stomach cancer metastatic to omentum with malignant ascites accumulating. She is been having difficulty having therapeutic paracentesis scheduled. She was seen on September 19 with paracentesis. With the initial paracentesis 5 L were drained, on the we were able to drain 3800 cc. She presents today complaining of increasing fullness pressing up on her lungs and causing difficulty with breathing. She is not complaining of fevers, cough, tachycardia. This sensation for her is entirely mechanical. Related Data Home Medications Medication Instructions Recorded Confirmed aspirin 81 mg chewable tablet 162 mg PO DAILY 01/01/20 09/19/23 ferrous sulfate 325 mg (65 mg 325 mg PO DAILY 08/20/21 09/19/23 iron) tablet magnesium 250 mg tablet 250 mg PO DAILY 08/20/21 09/19/23 potassium gluconate 595 mg (99 mg) 595 mg PO DAILY 08/20/21 09/19/23 tablet pantoprazole 40 mg tablet,delayed 40 mg PO DAILY 09/14/23 09/19/23 release Previous Rx's Medication Instructions Recorded triamcinolone acetonide 0.1 % See Rx Instructions topical BID 08/20/21 topical cream #15 grams pramipexole 0.5 mg tablet (Mirapex) 0.5 mg PO BEDTIME #90 tabs 09/16/22 lisinopril 20 mg tablet 20 mg PO DAILY #90 tabs 04/01/23 hydroxyzine HCl 25 mg tablet 25 mg PO BEDTIME insomnia #30 tabs 07/28/23 tramadol 50 mg tablet 50 mg PO TID PRN pain #21 tabs 08/23/23 hydrocodone 5 mg-acetaminophen 325 1 tab PO Q4H PRN pain #20 tabs 09/16/23 mg tablet lidocaine 5 % topical patch See Rx Instructions topical 09/16/23 .COMPLEX #30 ea ondansetron 8 mg disintegrating 8 mg PO Q6-8H PRN nausea and 09/16/23 tablet vomiting #24 tabs sennosides 8.6 mg tablet (senna) 8.6 mg PO DAILY #30 tabs 09/16/23 furosemide 20 mg tablet 20 mg PO DAILY #30 tabs 09/20/23 spironolactone 25 mg tablet 25 mg PO DAILY #30 tabs 09/21/23 clonazepam 0.5 mg tablet 0.5 mg PO BEDTIME #30 tabs 09/29/23 levothyroxine 175 mcg tablet See Rx Instructions .Route 09/29/23 .COMPLEX #90 tabs Allergies Allergy/AdvReac Type Severity Reaction Status Date / Time hydromorphone [HYDROMORPHONE] Allergy Mild Verified 09/30/23 15:29 shellfish derived Allergy Mild shrimp Verified 09/30/23 15:29 [SHELLFISH DERIVED] azithromycin [AZITHROMYCIN] AdvReac Intermediate heart Verified 09/30/23 15:29 palpitations measles, mumps, and rubella AdvReac Intermediate Maculopapular Verified 09/30/23 15:29 vaccine rash atorvastatin [ATORVASTATIN] AdvReac Mild sore throat Verified 09/30/23 15:29 cefuroxime [CEFUROXIME] AdvReac Mild gi upset Verified 09/30/23 15:29 morphine [MORPHINE] AdvReac Mild itching Verified 09/30/23 15:29 Sulfa (Sulfonamide AdvReac Mild gi upset Verified 09/30/23 15:29 Antibiotics) [SULFA (SULFONAMIDE ANTIBIOTICS)] trimethoprim [TRIMETHOPRIM] AdvReac Mild gi upset Verified 09/30/23 15:29 metoclopramide [From Reglan] AdvReac ITCHING Verified 09/30/23 15:30 prochlorperazine AdvReac ITCHING Verified 09/30/23 15:30 [From Compazine] Review of Systems Review of Systems Narrative: Pertinent positive and negative findings as per HPI Patient History Medical History History of upper GI x-ray series (12/14/04) Anemia (~1987) Vitamin D deficiency (~09/2009) Arthritis (~1985) Allergic rhinitis (~1981) RLS (restless legs syndrome) (~2007) Headache Sciatica of right side without back pain (2007) Shoulder pain (2011) Trimalleolar fracture (04/22/86) Right ankle pain (04/1986) Multiple acquired skin tags (~1979) 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) Vertigo (1996) Tinnitus (1996) Hearing loss (1996) Hemorrhoid (~2011) Heart palpitations (~2009) Hyperlipidemia (1991) Hypertension (2007) GERD (gastroesophageal reflux disease) (2004) Chicken pox (07/20/74) Measles Migraines (~1989) Anxiety (~2006) Hayfever (1981) Hypothyroidism (09/2010) Acute meniscal tear of left knee, initial encounter (10/23/15) Left-sided low back pain without sciatica (09/23/15) Endometrial polyp Surgical History Anesthesia History of esophagogastroduodenoscopy (EGD) (06/09/15) Status post ankle fusion (09/18/92) Status post hardware removal (09/1986) Status post hardware removal (06/1986) Status post surgical manipulation of ankle joint (04/22/86) Status post surgery (01/16/16) Status post knee surgery (12/09/15) Status post colonoscopy (06/02/10) Status post tubal ligation (03/30/01) Status post delivery (03/30/01) Status post dilation and curettage (02/12/99) Status post delivery (06/21/97) Status post dilation and curettage (04/22/96) Status post cholecystectomy (06/27/92) Family History Brother Age: 52 High cholesterol Daughter Age: 26 Asthma Father Age: 85 Hx of heart bypass surgery Hypertension High cholesterol Heart disease TIA (transient ischemic attack) TGA (transient global amnesia) Grandmother History of heart attack Kidney malignancy Hypertension High cholesterol Stroke Mother Age: 84 Diabetes mellitus Heart attack High cholesterol Hypertension Diabetic neuropathy Grandfather Hx of heart bypass surgery Alzheimer's disease Grandmother Diabetes mellitus Hypertension Congestive heart failure Sister Age: 63 High cholesterol Sister Age: 57 Smoker Celiac disease Sister Age: 54 Neuropathy, lateral femoral cutaneous nerve Hypothyroidism Anxiety Daughter Age: 42 No problems noted. Social History Smoking Status: Never smoker substance use type: does not use Smoking Status: Never smoker alcohol intake frequency: 0-2 drinks per day Substance Use Type: does not use Exam Initial Vital Signs Initial Vital Signs: Vital Signs Temperature 97.3 F L 09/30/23 15:25 Pulse Rate 79 09/30/23 15:25 Respiratory Rate 19 09/30/23 15:25 Blood Pressure 129/69 09/30/23 15:25 Pulse Oximetry 97 09/30/23 15:25 Oxygen Delivery Method Room Air 09/30/23 15:25 General: Alert appropriate in no acute distress, appears uncomfortable Respiratory: Able to speak in full sentences, no obvious respiratory distress Skin: No obvious rashes, warm and dry Abdomen: She does have ascites but has more firmness across her upper abdomen that is suggests there may be increasing cancer tumor burden causing the sensation of chest restriction Neurologic: Grossly intact no obvious asymmetries or abnormalities Psych: appropriate insight and affect, cooperative Procedures Paracentesis Time of procedure: 18:52 Indication: Ascites Procedure: therapeutic paracentesis Local Anesthetic: lidocaine 1% Amount of anesthesia used (mL): 4 Preparation: sterile prep and drape and Blade used to make alpa in skin Fluid: clear Post Procedure Exam: awake, alert, normal BP and normal HR Patient Tolerated Procedure: Well Complications: none and other (Preprocedure ultrasound was done. Largest pocket of fluid was clearly identified. Postprocedure ultrasound shows no large pocket of fluid remaining) Course Orders Ordered: ED Orders 09/30/23 15:32 Complete Blood Count AUTO DIFF Stat Comprehensive Metabolic Panel Stat Lactate (Lactic Acid) Stat NT-proBNP (BNP-Adult 18+) Stat Prothrombin Time INR Stat Troponin I Stat Vital Signs Vital signs: Vital Signs - 8 hr 09/30/23 15:25 09/30/23 17:07 09/30/23 17:30 Temperature 97.3 F L Pulse Rate 79 Respiratory Rate 19 Blood Pressure 129/69 140/77 126/58 L Pulse Oximetry 97 Oxygen Delivery Method Room Air 09/30/23 17:37 Temperature Pulse Rate 73 Respiratory Rate Blood Pressure Pulse Oximetry 97 Oxygen Delivery Method Room Air Medical Decision Making [facility] Narrative Medical decision making narrative: 63-year-old woman with metastatic stomach cancer presents for therapeutic paracentesis Preprocedure ultrasound is performed largest pocket of fluid is identified, please see procedure note above, 1300 cc of fluid is obtained. Postprocedure ultrasound does not show large volume fluid remaining and patient has minimal symptomatic relief with this amount of fluid removed. It is unclear whether body habitus is simply hiding more fluid or, of more concern, is increasing burden of disease causing the sensation of fullness and restriction Patient does therapeutic paracentesis scheduled but did not feel that she could wait until the next 1 due to her overall symptoms. She is now completed 2 courses of chemotherapy. She has a follow-up appointment with her oncologist in the near future. Will benefit from official ultrasound to see if there is in fact larger volume of fluid but may also need additional abdominal imaging to see if tumor mass is more symptomatic than the fluid itself. Findings reviewed with the patient, questions are answered she is hemodynamically stable postprocedure and is safe for discharge home Discharge Plan Departure Patient Disposition: Home Clinical Impression: Abdominal ascites Qualifiers: Ascites type: malignant Qualified Code(s): R18.0 - Malignant ascites Cancer of stomach Qualifiers: Malignant neoplasm of stomach location: unspecified location Qualified Code(s): C16.9 - Malignant neoplasm of stomach, unspecified Instructions: DI for Abdominal Paracentesis Activity Restrictions/Additional Instructions: Thank you for coming in We were able to get 1300 cc of ascites fluid off today. You do have ascites but each time it is a bit less as evidenced by the amount of fluid that were able to drain. I am concerned that the degree of breathlessness and discomfort that you are experiencing may not be completely caused by the ascites. With the 1300 cc that we did drain today you did not seem to have that much relief in the sensation of fullness. Please discuss this with your oncology doctor with your next visit. If you find that you are getting worse or develop any new symptoms, please feel free to return to the emergency department for further evaluation. Prescriptions: No Action magnesium 250 mg tablet 250 mg PO DAILY potassium gluconate 595 mg (99 mg) tablet 595 mg PO DAILY ferrous sulfate 325 mg (65 mg iron) tablet 325 mg PO DAILY triamcinolone acetonide 0.1 % cream See Rx Instructions topical BID Qty: 15 0RF Rx Instructions: 1 mg topically bid TOP BID pramipexole [Mirapex] 0.5 mg tablet 0.5 mg PO BEDTIME Qty: 90 1RF lisinopril 20 mg tablet 20 mg PO DAILY Qty: 90 2RF hydroxyzine HCl 25 mg tablet 25 mg PO BEDTIME Qty: 30 0RF Rx Instructions: take one or two tablets as needed at bedtime tramadol 50 mg tablet 50 mg PO TID PRN (Reason: pain) Qty: 21 0RF Rx Instructions: Take one tablet up to every 8 hours as needed for pain pantoprazole 40 mg tablet,delayed release (DR/EC) 40 mg PO DAILY ondansetron 8 mg tablet,disintegrating 8 mg PO Q6-8H PRN (Reason: nausea and vomiting) Qty: 24 2RF sennosides [senna] 8.6 mg tablet 8.6 mg PO DAILY Qty: 30 2RF lidocaine 5 % adhesive patch,medicated See Rx Instructions topical .COMPLEX Qty: 30 1RF Rx Instructions: leave on most painful area for up to 12 hrs topical hydrocodone-acetaminophen 5-325 mg tablet 1 tab PO Q4H PRN (Reason: pain) Qty: 20 0RF clonazepam 0.5 mg tablet 0.5 mg PO BEDTIME Qty: 30 0RF Rx Instructions: administer 30 minutes before bedtime levothyroxine 175 mcg tablet See Rx Instructions .ROUTE .COMPLEX Qty: 90 1RF Dose Instruction: TAKE ONE TABLET BY MOUTH ONE TIME DAILY Rx Instructions: TAKE ONE TABLET BY MOUTH ONE TIME DAILY spironolactone 25 mg tablet 25 mg PO DAILY Qty: 30 1RF furosemide 20 mg tablet 20 mg PO DAILY Qty: 30 0RF aspirin 81 mg Tablet,Chewable 162 mg PO DAILY Referrals: Stan Kothari MD [Primary Care Provider] - Stand Alone Forms: Patient Portal/API
--- NOTE | 2023-09-30 16:43 | PC.NURSE ---
patient has a history of fluid build up and drainage and has had to have it drained on the . She is short of breath and needs to sit upright. She has clear lung sounds on both sides of her chest wall. She denies pain.
== END 2023-09-30 19:03 | disposition home or self-care (01) ==
PROVIDERS: Emergency Provider Emergency Medicine; PCP Family Medicine
DX: C16.9 Malignant neoplasm of stomach, unspecified (principal); R18.0 Malignant ascites
CPT/HCPCS: 49082; 99281; 99284

== ENCOUNTER → 2023-10-04 15:00 | Outpatient (CLI) | payer OTHER, SELFPAY ==
--- NOTE | 2023-10-04 | DI.RAD.S_ITS ---
PROCEDURE: XR CHEST 1V INDICATIONS: POST THORACENTESIS TECHNIQUE: One view of the chest was acquired. COMPARISON: [facility], DC, DC PET CT FUSION SKULL 2 THIGH, 08/24/2023, 9:10. [facility], US, US PARACENTESIS, 08/30/2023, 16:56. [facility], CR, XR CHEST 2V, 09/14/2023, 14:03. [facility], CR, XR CHEST 1V, 01/01/2020, 17:50. FINDINGS: Surgical changes and devices: None. Lungs and pleura: No pneumothorax There are small pleural effusions bilaterally, left greater than right. Bibasilar consolidation or atelectasis. Mediastinum: Mediastinal contours appear normal. Heart size is normal. Bones and chest wall: No suspicious bony lesions. Overlying soft tissues appear unremarkable. IMPRESSION: 1. Pneumothorax. 2. Bibasilar consolidation or atelectasis. Dictated by: Hannah Benavides M.D. on 10/04/2023 at 17:13 Approved by: Hannah Benavides M.D. on 10/04/2023 at 17:15
--- NOTE | 2023-10-04 | DI.US.S_ITS ---
PROCEDURE: US THORACENTESIS INDICATIONS: BILATERAL PLEURAL EFFUSION. RIGHT WORSE THAN LEFT. TECHNIQUE: The indications, alternatives, benefits, risks, and complications of the procedure were explained to the patient. Written informed consent was obtained and placed in the chart. The chest was examined sonographically, and an appropriate site was chosen for thoracentesis. The skin was prepared and draped in the usual sterile fashion, and 1% lidocaine was infiltrated from the skin down through the pleural surface. A 19-gauge catheter-covered needle was then introduced into the pleural space, the catheter was advanced and the needle was withdrawn, and thereafter pleural fluid was aspirated. The catheter was then removed and a dressing was applied. COMPARISON: [facility], CR, XR CHEST 2V, 09/14/2023, 14:03. [facility], CR, XR CHEST 1V, 10/04/2023, 16:25. FINDINGS: Access site: Right hemithorax. Needle: One-Step centesis catheter with introducer needle. Fluid volume and description: 150 mL; clear. Fluid sent for diagnostic testing: Not requested by referring physician. Medications: 1% lidocaine for local anaesthesia. Complications: None; post-procedural chest radiograph is pending to assess for pneumothorax. IMPRESSION: Successful ultrasound-guided thoracentesis. Dictated by: Hannah Benavides M.D. on 10/04/2023 at 17:10 Approved by: Hannah Benavides M.D. on 10/04/2023 at 17:11
--- NOTE | 2023-10-04 15:31 | DI.US.S_ITS ---
PROCEDURE: US ABDOMEN LIMITED INDICATIONS: ASCITES TECHNIQUE: Real-time focused scanning was performed of the abdomen, with image documentation. COMPARISON: [facility], , PARACENTESIS, 08/30/2023, 16:56. [facility], [place], [place] PET CT FUSION SKULL 2 THIGH, 08/24/2023, 9:10. FINDINGS: There is trace amount of ascites in peritoneal cavity. Paracentesis was not performed. IMPRESSION: Trace amount of ascites, not enough for safe paracentesis. Dictated by: Hannah Benavides M.D. on 10/04/2023 at 17:12 Approved by: Hannah Benavides M.D. on 10/04/2023 at 17:13
[2023-10-04 17:27] LABS: INR 1.2 (0.9-1.3); Prothrombin Time 13.8 SECONDS (9.4-12.5)
[2023-10-04 17:30] LABS: Alanine Aminotransferase 13 IU/L (<35); Albumin 3.5 g/dL (3.5-5.0); Albumin Globulin Ratio 1.1 (1.0-2.8); Alkaline Phosphatase 88 U/L (38-126); BUN Creatinine Ratio 15.3 (6-22); Bilirubin Total 0.5 mg/dL (0.2-1.3); Blood Urea Nitrogen 13 mg/dL (7-17); Calcium 9.4 mg/dL (8.4-10.2); Carbon Dioxide 32 mmol/L (22-32); Chloride 101 mmol/L (98-107); Estimated Glomerular Filt Rate > 60 mL/min (>60); Globulin 3.3 g/dL (1.7-4.1); Glucose 99 mg/dL (80-110); HEMOLYSIS < 15 (0-50); Potassium 4.1 mmol/L (3.4-5.1); Sodium 137 mmol/L (137-145); Total Protein 6.8 g/dL (6.3-8.2)
[2023-10-04 17:35] LABS: Add Manual Diff / Slide Review NO; Basophils Absolute Auto 100 /uL (0-100); Basophils Percent Auto 1.4 % (0-2); Eosinophils Absolute Auto 100 /uL (0-450); Lymphocytes Absolute Auto 900 /uL (1100-4500); Lymphocytes Percent Auto 21.4 % (25-40); Mean Corpuscular HGB Conc 33.3 % (30-36); Mean Corpuscular Hemoglobin 29.6 PG (26-34); Monocytes Absolute Auto 500 /uL (0-900); Monocytes Percent Auto 11.5 % (3-14); Neutrophils Absolute Auto 2600 /uL (1500-7000); Neutrophils Percent Auto 62.7 % (50-75); Platelet Count 343 X10^3/uL (150-400); Red Cell Distribution Width 15.3 % (11.6-14.8); White Blood Cell Count 4.1 X10^3/uL (4.5-11.0)
[2023-10-07 16:35] LABS: Aspartate Aminotransferase 23 IU/L (14-36)
== END ==
PROVIDERS: PCP Family Medicine; Referring Provider Family Medicine; Visit Provider Family Medicine
DX: C48.1 Malignant neoplasm of specified parts of peritoneum (principal); C16.9 Malignant neoplasm of stomach, unspecified; J90 Pleural effusion, not elsewhere classified; R18.8 Other ascites
CPT/HCPCS: 32555; 36415; 71045; 76705; 80053; 85025; 85610

== ENCOUNTER → 2023-10-06 15:39 | Outpatient (CLI) | payer OTHER, SELFPAY ==
[2023-10-06 17:23] LABS: Hematocrit 33.4 % (36-46); Mean Corpuscular HGB Conc 32.8 % (30-36); Mean Corpuscular Hemoglobin 29.1 PG (26-34); Mean Corpuscular Volume 88.6 fL (80-100); Platelet Count 343 X10^3/uL (150-400); Red Blood Cell Count 3.77 X10^6/uL (4.0-5.2); Red Cell Distribution Width 15.5 % (11.6-14.8); White Blood Cell Count 2.7 X10^3/uL (4.5-11.0)
[2023-10-06 17:44] LABS: Alanine Aminotransferase 16 IU/L (<35); Albumin 3.6 g/dL (3.5-5.0); Albumin Globulin Ratio 1.1 (1.0-2.8); Alkaline Phosphatase 97 U/L (38-126); BUN Creatinine Ratio 13.5 (6-22); Bilirubin Total 0.7 mg/dL (0.2-1.3); Blood Urea Nitrogen 14 mg/dL (7-17); Calcium 9.4 mg/dL (8.4-10.2); Carbon Dioxide 30 mmol/L (22-32); Chloride 98 mmol/L (98-107); Estimated Glomerular Filt Rate > 60 mL/min (>60); Globulin 3.3 g/dL (1.7-4.1); Glucose 91 mg/dL (80-110); HEMOLYSIS < 15 (0-50); Potassium 3.7 mmol/L (3.4-5.1); Sodium 135 mmol/L (137-145); Total Protein 6.9 g/dL (6.3-8.2)
[2023-10-06 17:46] LABS: D Dimer 19312 ng/ml (<500)
[2023-10-06 22:14] LABS: Neutrophils Absolute Manual 2052 /uL (3000-5900); Total Cells Counted 100
[2023-10-06 22:15] LABS: RBC Morphology Normal Morphology
[2023-10-07 15:09] LABS: Aspartate Aminotransferase 31 IU/L (14-36)
== END ==
LOC: LAB 15:40
PROVIDERS: PCP Family Medicine; Referring Provider Family Medicine; Visit Provider Family Medicine
DX: J90 Pleural effusion, not elsewhere classified (principal); R06.02 Shortness of breath; C16.9 Malignant neoplasm of stomach, unspecified
CPT/HCPCS: 36415; 80053; 85025; 85379

== ENCOUNTER → 2023-10-07 15:29 | Outpatient (CLI) | payer OTHER, SELFPAY ==
--- NOTE | 2023-10-07 15:47 | DI.CT.S_ITS ---
PROCEDURE: CT ANGIO CHEST PE PROTOCOL INDICATIONS: shortness of breath TECHNIQUE: After the administration of intravenous contrast, 2 mm thick sections acquired from the pulmonary apices to the posterior costophrenic angles. 3-dimensional maximum intensity projection (MIP) coronal and sagittal reformats were then acquired through the thorax. For radiation dose reduction, the following was used: automated exposure control, adjustment of mA and/or kV according to patient size. COMPARISON: None. FINDINGS: Image quality: Diagnostic. Pulmonary arteries: Pulmonary arteries are normal in size, and demonstrate no intraluminal filling defects to suggest central pulmonary embolism. Lower Neck: No enlarged lymph nodes. Thyroid: No thyroid nodules which require sonographic follow up, per consensus guidelines. Axillae: No enlarged lymph nodes. Chest Wall: Unremarkable except for the presence of a Port-A-Cath from right-sided approach extending into the superior vena cava terminating within the right atrium.. Bones: Unremarkable. Lungs and Pleura: No pneumothorax but there are bilateral moderate to moderately large pleural effusions, right greater than left with adjacent compressive atelectasis. No consolidation or suspicious nodules. Heart: Heart size is normal. No pericardial effusion. Thoracic Vessels: No aortic aneurysm. Mediastinum and Sade: No enlarged lymph nodes. Esophagus: No wall thickening. No hiatal hernia. Upper Abdomen: Visualized upper abdomen solid organs and bowel loops appear normal. IMPRESSION: No pulmonary embolus. Bilateral pleural effusions, moderate to moderately large in size, with secondary adjacent atelectasis, right greater than left. No evidence of pleural mass or abnormal pleural thickening and enhancement. Etiology of these pleural effusions is indeterminate. Dictated by: Rubin Falcon M.D. on 10/07/2023 at 16:39 Approved by: Rubin Falcon M.D. on 10/07/2023 at 16:44
== END ==
PROVIDERS: PCP Family Medicine; Referring Provider Family Medicine; Visit Provider Family Medicine
DX: C16.9 Malignant neoplasm of stomach, unspecified (principal); R18.0 Malignant ascites; J90 Pleural effusion, not elsewhere classified; J98.11 Atelectasis
CPT/HCPCS: 71275

== ENCOUNTER 2023-10-07 16:13 | Emergency (ER) | payer OTHER, SELFPAY ==
[2023-10-07] VITALS (9 sets, daily range): BP systolic 122–150; BP diastolic 64–83; PULSE 74–84; RESP 16–22; TEMP 36.8; O2SAT 86–97; BMI 39.4
--- NOTE | 2023-10-07 17:00 | PC.NURSE ---
Pt reports feeling chilled and occasionallly reports woozy when moving. She has lightheadedness at rest, moving slowly to reposition. Pt's family at bedside. Left lower calf pain which is achy, no redness visualized.
--- NOTE | 2023-10-07 17:01 | DI.US.S_ITS ---
PROCEDURE: US PERIP VENOUS LOW EXTREM LT INDICATIONS: ELEVATED D-DIMER TECHNIQUE: Real-time imaging, as well as color and pulse Doppler interrogation, were performed of the lower extremity deep veins from the inguinal ligament to the popliteal fossa, with documentation of the visualized calf veins. COMPARISON: [facility], , [facility] VENOUS LOW EXTREM LT, 07/31/2023, 21:30. FINDINGS: The common femoral, femoral, popliteal, and the visualized calf veins are normally compressible, and free of intraluminal thrombus. Color and pulse Doppler demonstrate normal phasic intraluminal flow. There is normal augmentation response to distal compression maneuver. IMPRESSION: No findings of lower extremity deep venous thrombosis. Dictated by: Eva Watkins M.D. on 10/07/2023 at 17:57 Approved by: Eva Watkins M.D. on 10/07/2023 at 18:00
--- NOTE | 2023-10-07 17:03 | ED.GENADULT ---
HPI - General Adult <Mateo Nava DO - Last Filed: 10/08/23 07:05> General Chief complaint: Nausea/Vomiting/Diarrhea Stated complaint: DEHYDRATED/sent by Dr. Kothari Time Seen by Provider: 10/07/23 16:48 Source: patient Mode of arrival: Ambulatory Limitations: no limitations History of Present Illness HPI narrative: Patient is a 63-year-old female. Has a history of stage IV gastric cancer. Is seen at [facility] for Oncology. Finished her chemotherapy infusion today. She has been having issues with shortness of breath. Has had both paracentesis and thoracentesis within the past week. She gets frequent paracentesis. She was had a thoracentesis 1 time. There was concern about her persistent shortness of breath despite the drainage of both her abdomen in the chest. A D-dimer was ordered as an outpatient by either her primary doctor or her oncologist. It was elevated. She was told to come to this hospital on obtain a CT scan of her chest and then come to the emergency department for hydration. She did have a CT scan performed. She arrives here for hydration. She states that she feels dehydrated. Is having some nausea but no vomiting. No fevers. She was short of breath but states that it has not as bad as it was prior to her thoracentesis just a couple days ago. She does not feel like her abdomen is distended like it was prior to her paracentesis. She reports that she is having discomfort behind her left knee. Related Data Home Medications Medication Instructions Recorded Confirmed ferrous sulfate 325 mg (65 mg 325 mg PO DAILY 08/20/21 09/19/23 iron) tablet magnesium 250 mg tablet 250 mg PO DAILY 08/20/21 09/19/23 Previous Rx's Medication Instructions Recorded lisinopril 20 mg tablet 20 mg PO DAILY #90 tabs 04/01/23 hydrocodone 5 mg-acetaminophen 325 1 tab PO Q4H PRN pain #20 tabs 09/16/23 mg tablet ondansetron 8 mg disintegrating 8 mg PO Q6-8H PRN nausea and 09/16/23 tablet vomiting #24 tabs sennosides 8.6 mg tablet (senna) 8.6 mg PO DAILY #30 tabs 09/16/23 levothyroxine 175 mcg tablet See Rx Instructions .Route 09/29/23 .COMPLEX #90 tabs diazepam 2 mg tablet 2 mg PO TID PRN dizzy #60 tabs 10/27/23 pantoprazole 40 mg tablet,delayed 40 mg PO BID #180 tabs 10/27/23 release Disabled Parking Permit See Rx Instructions .Route 10/31/23 .COMPLEX #1 ea furosemide 20 mg tablet 20 mg PO DAILY #60 tabs 11/03/23 meclizine 25 mg tablet 25 mg PO QD-BID PRN for dizziness 11/14/23 #20 tabs scopolamine base 1 mg over 3 days 1 patch transdermal Q3D PRN motion 11/17/23 transdermal patch sickness #4 ea Allergies Allergy/AdvReac Type Severity Reaction Status Date / Time hydromorphone [HYDROMORPHONE] Allergy Mild Verified 10/31/23 10:35 shellfish derived Allergy Mild shrimp Verified 10/31/23 10:35 [SHELLFISH DERIVED] azithromycin [AZITHROMYCIN] AdvReac Intermediate heart Verified 10/31/23 10:35 palpitations measles, mumps, and rubella AdvReac Intermediate Maculopapular Verified 10/31/23 10:35 vaccine rash atorvastatin [ATORVASTATIN] AdvReac Mild sore throat Verified 10/31/23 10:35 cefuroxime [CEFUROXIME] AdvReac Mild gi upset Verified 10/31/23 10:35 morphine [MORPHINE] AdvReac Mild itching Verified 10/31/23 10:35 Sulfa (Sulfonamide AdvReac Mild gi upset Verified 10/31/23 10:35 Antibiotics) [SULFA (SULFONAMIDE ANTIBIOTICS)] trimethoprim [TRIMETHOPRIM] AdvReac Mild gi upset Verified 10/31/23 10:35 metoclopramide [From Reglan] AdvReac ITCHING Verified 10/31/23 10:35 prochlorperazine AdvReac ITCHING Verified 10/31/23 10:35 [From Compazine] Review of Systems <Mateo Nava, - Last Filed: 10/08/23 07:05> Constitutional Constitutional: Reports system reviewed and no additional complaints, except as documented Cardiovascular Cardiovascular: Reports system reviewed and no additional complaints, except as documented Respiratory Respiratory: Reports system reviewed and no additional complaints, except as documented Gastrointestinal Gastrointestinal: Reports system reviewed and no additional complaints, except as documented Musculoskeletal Musculoskeletal: Reports system reviewed and no additional complaints, except as documented Integumentary/Breasts Skin/Breast: Reports system reviewed and no additional complaints, except as documented Neurologic Neurologic: Reports system reviewed and no additional complaints, except as documented Patient History <Mateo Nava DO - Last Filed: 10/08/23 07:05> Medical History History of upper GI x-ray series (12/14/04) Anemia (~1987) Vitamin D deficiency (~09/2009) Arthritis (~1985) Allergic rhinitis (~1981) RLS (restless legs syndrome) (~2007) Headache Sciatica of right side without back pain (2007) Shoulder pain (2011) Trimalleolar fracture (04/22/86) Right ankle pain (04/1986) Multiple acquired skin tags (~1979) 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) Vertigo (1996) Tinnitus (1996) Hearing loss (1996) Hemorrhoid (~2011) Heart palpitations (~2009) Hyperlipidemia (1991) Hypertension (2007) GERD (gastroesophageal reflux disease) (2004) Chicken pox (07/20/74) Measles Migraines (~1989) Anxiety (~2006) Hayfever (1981) Hypothyroidism (09/2010) Acute meniscal tear of left knee, initial encounter (10/23/15) Left-sided low back pain without sciatica (09/23/15) Endometrial polyp Surgical History Anesthesia History of esophagogastroduodenoscopy (EGD) (06/09/15) Status post ankle fusion (09/18/92) Status post hardware removal (09/1986) Status post hardware removal (06/1986) Status post surgical manipulation of ankle joint (04/22/86) Status post surgery (01/16/16) Status post knee surgery (12/09/15) Status post colonoscopy (06/02/10) Status post tubal ligation (03/30/01) Status post delivery (03/30/01) Status post dilation and curettage (02/12/99) Status post delivery (06/21/97) Status post dilation and curettage (04/22/96) Status post cholecystectomy (06/27/92) Family History Brother Age: 52 High cholesterol Daughter Age: 26 Asthma Father Age: 85 Hx of heart bypass surgery Hypertension High cholesterol Heart disease TIA (transient ischemic attack) TGA (transient global amnesia) Grandmother History of heart attack Kidney malignancy Hypertension High cholesterol Stroke Mother Age: 84 Diabetes mellitus Heart attack High cholesterol Hypertension Diabetic neuropathy Grandfather Hx of heart bypass surgery Alzheimer's disease Grandmother Diabetes mellitus Hypertension Congestive heart failure Sister Age: 63 High cholesterol Sister Age: 57 Smoker Celiac disease Sister Age: 54 Neuropathy, lateral femoral cutaneous nerve Hypothyroidism Anxiety Daughter Age: 42 No problems noted. Social History Smoking Status: Never smoker substance use type: does not use Smoking Status: Never smoker alcohol intake frequency: 0-2 drinks per day Substance Use Type: does not use Exam <Mateo Nava DO - Last Filed: 10/08/23 07:05> Initial Vital Signs Initial Vital Signs: Vital Signs Temperature 98.3 F 10/07/23 16:30 Pulse Rate 74 10/07/23 16:30 Respiratory Rate 16 10/07/23 16:30 Blood Pressure 137/78 10/07/23 16:30 Pulse Oximetry 95 10/07/23 16:30 Oxygen Delivery Method Room Air 10/07/23 16:30 Const General: cooperative HENMT Head: normal to inspection and normocephalic Resp Effort & Inspection: normal respiratory effort Auscultation: clear to auscultation bilaterally and crackles Cardio Rate: regular rate Rhythm: regular rhythm GI Inspection: non-distended Palpation: soft and No tender Neuro General: patient alert, patient awake and moves all extremities Extrem Other: Discomfort to the left calf muscle and behind the left knee. <Sahil Baeza MD - Last Filed: 11/21/23 06:20> Initial Vital Signs Initial Vital Signs: Vital Signs Temperature 98.3 F 10/07/23 16:30 Pulse Rate 74 10/07/23 16:30 Respiratory Rate 16 10/07/23 16:30 Blood Pressure 137/78 10/07/23 16:30 Pulse Oximetry 95 10/07/23 16:30 Oxygen Delivery Method Room Air 10/07/23 16:30 Course <Mateo Nava DO - Last Filed: 10/08/23 07:05> Orders Ordered: Discontinued Medications Sodium Chloride (Normal Saline 0.9%) 1,000 mls @ 500 mls/hr IV BOLUS ONE Stop: 10/07/23 19:00 Last Infusion: 10/07/23 19:24 Dose: Infused Documented By: Admin: 10/07/23 17:20 Dose: 500 mls/hr Documented By: SPF Vital Signs Vital signs: Vital Signs - 8 hr 10/07/23 16:30 Temperature 98.3 F Pulse Rate 74 Respiratory Rate 16 Blood Pressure 137/78 Pulse Oximetry 95 Oxygen Delivery Method Room Air <Sahil Baeza MD - Last Filed: 11/21/23 06:20> Course Course Narrative: Patient signed out from Dr. Nava. Patient presented with dehydration. Elevated D-dimer. CTA negative for PE. Bilateral pleural effusions. Patient has a h/o of gastric cancer, s/p chemotherapy. Negative DVT. 500 mL/hr IVF's. Pending disposition. Orders Ordered: Discontinued Medications Sodium Chloride (Normal Saline 0.9%) 1,000 mls @ 500 mls/hr IV BOLUS ONE Stop: 10/07/23 19:00 Last Infusion: 10/07/23 19:24 Dose: Infused Documented By: Admin: 10/07/23 17:20 Dose: 500 mls/hr Documented By: SPF Vital Signs Vital signs: Vital Signs - 8 hr 10/07/23 16:30 Temperature 98.3 F Pulse Rate 74 Respiratory Rate 16 Blood Pressure 137/78 Pulse Oximetry 95 Oxygen Delivery Method Room Air Medical Decision Making <Mateo Nava DO - Last Filed: 10/08/23 07:05> Lab Data 10/07/23 17:18 10/07/23 17:18 Labs: Lab Results 10/07/23 Range/Units 17:18 WBC 1.6 L* (4.5-11.0) X10^3/uL RBC 3.50 L (4.0-5.2) X10^6/uL Hgb 10.2 L (12.0-16.0) g/dL Hct 30.9 L (36-46) % MCV 88.2 (80-100) fL MCH 29.2 (26-34) PG MCHC 33.1 (30-36) % RDW 15.6 H (11.6-14.8) % Plt Count 309 (150-400) X10^3/uL Neut % (Auto) Not Reportable Lymph % (Auto) Not Reportable Roosevelt % (Auto) Not Reportable Eos % (Auto) Not Reportable Baso % (Auto) Not Reportable Lymph # (Auto) Not Reportable Roosevelt # (Auto) Not Reportable Baso # (Auto) Not Reportable Total Counted 50 Seg Neutrophils % 70.0 (38-70) % Lymphocytes % (Manual) 22.0 L D (25-45) % Eosinophils % (Manual) 4.0 (2-4) % Basophils % (Manual) 4.0 H (0-1) % Neutrophils # (Manual) 1120 L (5956-6651) /uL RBC Morphology Normal morphology PT 13.8 H (9.4-12.5) SECONDS INR 1.2 (0.9-1.3) APTT 29 (25.1-36.5) SECONDS Sodium 133 L (137-145) mmol/L Potassium 3.9 (3.4-5.1) mmol/L Chloride 97 L (98-107) mmol/L Carbon Dioxide 29 (22-32) mmol/L BUN 13 (7-17) mg/dL Creatinine 0.87 (0.52-1.04) mg/dL Estimated GFR > 60 (>60) mL/min BUN/Creatinine Ratio 14.9 (6-22) Glucose 90 (80-110) mg/dL Calcium 9.2 (8.4-10.2) mg/dL Total Bilirubin 0.7 (0.2-1.3) mg/dL AST 31 (14-36) IU/L ALT 17 (<35) IU/L Alkaline Phosphatase 89 (38-126) U/L Total Protein 6.4 (6.3-8.2) g/dL Albumin 3.4 L (3.5-5.0) g/dL Globulin 3.0 (1.7-4.1) g/dL Albumin/Globulin Ratio 1.1 (1.0-2.8) Lipase 88 (23-300) U/L Imaging Data CT scan - chest: Radiologist's Impression: PROCEDURE: CT ANGIO CHEST PE PROTOCOL INDICATIONS: shortness of breath TECHNIQUE: After the administration of intravenous contrast, 2 mm thick sections acquired from the pulmonary apices to the posterior costophrenic angles. 3-dimensional maximum intensity projection (MIP) coronal and sagittal reformats were then acquired through the thorax. For radiation dose reduction, the following was used: automated exposure control, adjustment of mA and/or kV according to patient size. COMPARISON: None. FINDINGS: Image quality: Diagnostic. Pulmonary arteries: Pulmonary arteries are normal in size, and demonstrate no intraluminal filling defects to suggest central pulmonary embolism. Lower Neck: No enlarged lymph nodes. Thyroid: No thyroid nodules which require sonographic follow up, per consensus guidelines. Axillae: No enlarged lymph nodes. Chest Wall: Unremarkable except for the presence of a Port-A-Cath from right-sided approach extending into the superior vena cava terminating within the right atrium.. Bones: Unremarkable. Lungs and Pleura: No pneumothorax but there are bilateral moderate to moderately large pleural effusions, right greater than left with adjacent compressive atelectasis. No consolidation or suspicious nodules. Heart: Heart size is normal. No pericardial effusion. Thoracic Vessels: No aortic aneurysm. Mediastinum and Sade: No enlarged lymph nodes. Esophagus: No wall thickening. No hiatal hernia. Upper Abdomen: Visualized upper abdomen solid organs and bowel loops appear normal. IMPRESSION: No pulmonary embolus. Bilateral pleural effusions, moderate to moderately large in size, with secondary adjacent atelectasis, right greater than left. No evidence of pleural mass or abnormal pleural thickening and enhancement. Etiology of these pleural effusions is indeterminate. US - DVT: Radiologist's Impression: PROCEDURE: US [facility] VENOUS LOW EXTREM LT INDICATIONS: ELEVATED D-DIMER TECHNIQUE: Real-time imaging, as well as color and pulse Doppler interrogation, were performed of the lower extremity deep veins from the inguinal ligament to the popliteal fossa, with documentation of the visualized calf veins. COMPARISON: [facility], US PERIP VENOUS LOW EXTREM LT, 07/31/2023, 21:30. FINDINGS: The common femoral, femoral, popliteal, and the visualized calf veins are normally compressible, and free of intraluminal thrombus. Color and pulse Doppler demonstrate normal phasic intraluminal flow. There is normal augmentation response to distal compression maneuver. IMPRESSION: No findings of lower extremity deep venous thrombosis. MDM Narrative Medical decision making narrative: CT scan included in this note is for reference purposes. It was ordered as an outpatient by another provider. It does not show any signs of pulmonary embolism. She does have pleural effusions. Patient denies chest pain. Not tachycardic. Not tachypneic. Not hypoxic. Ultrasound ordered for evaluation of the discomfort she is having in her left calf. No fevers. Her abdomen is soft. Plan will be is for gentle hydration. Re-evaluate afterwards to discuss whether not patient should be admitted for thoracentesis versus discharge home. Care turned over to Dr. Baeza to follow-up and disposition. <Sahil Baeza MD - Last Filed: 11/21/23 06:20> Lab Data Labs: Lab Results 10/07/23 Range/Units 17:18 WBC 1.6 L* (4.5-11.0) X10^3/uL RBC 3.50 L (4.0-5.2) X10^6/uL Hgb 10.2 L (12.0-16.0) g/dL Hct 30.9 L (36-46) % MCV 88.2 (80-100) fL MCH 29.2 (26-34) PG MCHC 33.1 (30-36) % RDW 15.6 H (11.6-14.8) % Plt Count 309 (150-400) X10^3/uL Neut % (Auto) Not Reportable Lymph % (Auto) Not Reportable Roosevelt % (Auto) Not Reportable Eos % (Auto) Not Reportable Baso % (Auto) Not Reportable Lymph # (Auto) Not Reportable Roosevelt # (Auto) Not Reportable Baso # (Auto) Not Reportable Total Counted 50 Seg Neutrophils % 70.0 (38-70) % Lymphocytes % (Manual) 22.0 L D (25-45) % Eosinophils % (Manual) 4.0 (2-4) % Basophils % (Manual) 4.0 H (0-1) % Neutrophils # (Manual) 1120 L (1266-9089) /uL RBC Morphology Normal morphology PT 13.8 H (9.4-12.5) SECONDS INR 1.2 (0.9-1.3) APTT 29 (25.1-36.5) SECONDS Sodium 133 L (137-145) mmol/L Potassium 3.9 (3.4-5.1) mmol/L Chloride 97 L (98-107) mmol/L Carbon Dioxide 29 (22-32) mmol/L BUN 13 (7-17) mg/dL Creatinine 0.87 (0.52-1.04) mg/dL Estimated GFR > 60 (>60) mL/min BUN/Creatinine Ratio 14.9 (6-22) Glucose 90 (80-110) mg/dL Calcium 9.2 (8.4-10.2) mg/dL Total Bilirubin 0.7 (0.2-1.3) mg/dL AST 31 (14-36) IU/L ALT 17 (<35) IU/L Alkaline Phosphatase 89 (38-126) U/L Total Protein 6.4 (6.3-8.2) g/dL Albumin 3.4 L (3.5-5.0) g/dL Globulin 3.0 (1.7-4.1) g/dL Albumin/Globulin Ratio 1.1 (1.0-2.8) Lipase 88 (23-300) U/L MDM Narrative Additional Information: Patient given IV hydration. Admission offered but declined by patient. Patient requests discharge home. Return precautions given. Patient stable at time of discharge. Discharge Plan Departure Patient Disposition: Home Clinical Impression: Acute dehydration, Leukopenia due to antineoplastic chemotherapy Instructions: DI for Dehydration -- Adult Prescriptions: Continued magnesium 250 mg tablet 250 mg PO DAILY ferrous sulfate 325 mg (65 mg iron) tablet 325 mg PO DAILY lisinopril 20 mg tablet 20 mg PO DAILY Qty: 90 2RF ondansetron 8 mg tablet,disintegrating 8 mg PO Q6-8H PRN (Reason: nausea and vomiting) Qty: 24 2RF sennosides [senna] 8.6 mg tablet 8.6 mg PO DAILY Qty: 30 2RF hydrocodone-acetaminophen 5-325 mg tablet 1 tab PO Q4H PRN (Reason: pain) Qty: 20 0RF levothyroxine 175 mcg tablet See Rx Instructions .ROUTE .COMPLEX Qty: 90 1RF Dose Instruction: TAKE ONE TABLET BY MOUTH ONE TIME DAILY Rx Instructions: TAKE ONE TABLET BY MOUTH ONE TIME DAILY No Action pantoprazole 40 mg tablet,delayed release (DR/EC) 40 mg PO BID Qty: 180 0RF diazepam 2 mg tablet 2 mg PO TID PRN (Reason: dizzy) Qty: 60 0RF Rx Instructions: Take one tablet up to 3 times a day as needed for dizziness furosemide 20 mg tablet 20 mg PO DAILY Qty: 60 0RF meclizine 25 mg tablet 25 mg PO QD-BID PRN (Reason: for dizziness) Qty: 20 1RF scopolamine base 1 mg over 3 days patch 3 day 1 patch transdermal Q3D PRN (Reason: motion sickness) Qty: 4 1RF Disabled Parking Permit See Rx Instructions .ROUTE .COMPLEX Qty: 1 0RF Rx Instructions: I find this patient to be medically disabled and qualified for Disabled Parking as indicated, and signed, on the accompanying Disabled Parking Application for Individuals ; Referrals: Stan Kothari MD [Primary Care Provider] - As soon as possible Stand Alone Forms: Patient Portal/API
[2023-10-07] MEDS: SODIUM CHLORIDE 0.9% 1,000 ML 500 ML IV (17:20)
[2023-10-07 17:41] LABS: INR 1.2 (0.9-1.3); Prothrombin Time 13.8 SECONDS (9.4-12.5)
[2023-10-07 17:44] LABS: Hematocrit 30.9 % (36-46); Hemoglobin 10.2 g/dL (12.0-16.0); Mean Corpuscular HGB Conc 33.1 % (30-36); Mean Corpuscular Hemoglobin 29.2 PG (26-34); Mean Corpuscular Volume 88.2 fL (80-100); PTT Partial Thromboplastin Tim 29 SECONDS (25.1-36.5); Platelet Count 309 X10^3/uL (150-400); Red Cell Distribution Width 15.6 % (11.6-14.8)
[2023-10-07 17:46] LABS: Alanine Aminotransferase 17 IU/L (<35); Albumin 3.4 g/dL (3.5-5.0); Albumin Globulin Ratio 1.1 (1.0-2.8); Alkaline Phosphatase 89 U/L (38-126); Aspartate Aminotransferase 31 IU/L (14-36); BUN Creatinine Ratio 14.9 (6-22); Bilirubin Total 0.7 mg/dL (0.2-1.3); Blood Urea Nitrogen 13 mg/dL (7-17); Calcium 9.2 mg/dL (8.4-10.2); Carbon Dioxide 29 mmol/L (22-32); Chloride 97 mmol/L (98-107); Estimated Glomerular Filt Rate > 60 mL/min (>60); Glucose 90 mg/dL (80-110); HEMOLYSIS < 15 (0-50); Lipase 88 U/L (23-300); Potassium 3.9 mmol/L (3.4-5.1); Sodium 133 mmol/L (137-145); Total Protein 6.4 g/dL (6.3-8.2)
[2023-10-07 17:48] LABS: Add Manual Diff / Slide Review YES; White Blood Cell Count 1.6 X10^3/uL (4.5-11.0)
[2023-10-07 18:08] LABS: Neutrophils Absolute Manual 1120 /uL (3000-5900); Total Cells Counted 50
[2023-10-07 18:09] LABS: RBC Morphology Normal Morphology
== END 2023-10-07 21:07 | disposition home or self-care (01) ==
PROVIDERS: Emergency Medicine; Emergency Provider Emergency Medicine; PCP Family Medicine
DX: E86.0 Dehydration (principal); D70.1 Agranulocytosis secondary to cancer chemotherapy; C16.9 Malignant neoplasm of stomach, unspecified; R18.0 Malignant ascites; J90 Pleural effusion, not elsewhere classified; J98.11 Atelectasis
CPT/HCPCS: 36415; 71275; 80053; 83690; 85007; 85025; 85610; 85730; 93971; 96360; 96361; 99284

== ENCOUNTER → 2023-10-11 12:58 | Outpatient (CLI) | payer OTHER, SELFPAY ==
--- NOTE | 2023-10-11 12:59 | DI.US.S_ITS ---
PROCEDURE: US ABDOMEN LIMITED INDICATIONS: ASCITES CHECK - EVALUATION FOR PARACENTESIS TECHNIQUE: Real-time focused scanning was performed of the abdomen, with image documentation. COMPARISON: [facility], CR, XR CHEST 1V, 10/04/2023, 16:25. [facility], CT, CT ANGIO CHEST PE PROTOCOL, 10/07/2023, 15:54. [facility], US, US ABDOMEN LIMITED, 10/04/2023, 15:43. FINDINGS: No ascites. There is bilateral pleural effusions. IMPRESSION: 1. No ascites. Paracentesis was not performed. 2. Bilateral pleural effusions. Dictated by: Hannah Benavides M.D. on 10/11/2023 at 16:34 Approved by: Hannah Benavides M.D. on 10/11/2023 at 16:35
== END ==
LOC: US 12:59
PROVIDERS: PCP Family Medicine; Referring Provider Family Medicine; Visit Provider Family Medicine
DX: C16.9 Malignant neoplasm of stomach, unspecified (principal); J90 Pleural effusion, not elsewhere classified; R18.8 Other ascites
CPT/HCPCS: 76705

== ENCOUNTER 2023-10-12 17:55 | Emergency (ER) | payer OTHER, SELFPAY ==
[2023-10-12] VITALS (10 sets, daily range): BP systolic 137–153; BP diastolic 76–92; PULSE 77–92; RESP 17–29; TEMP 36.4; O2SAT 92–100; BMI 37.9
--- NOTE | 2023-10-12 18:01 | ED.GENADULT ---
HPI - General Adult General Chief complaint: Dizziness Stated complaint: vertigo Time Seen by Provider: 10/12/23 17:59 History of Present Illness HPI narrative: 63-year-old female with history of stage IV gastric cancer on IV chemotherapy, Meniere's disease presents by EMS from home for vertigo. Patient is seen 5 days ago in our hospital for dehydration following chemotherapy. She received IV fluids and was discharged home. Patient states that to 3 days ago she had sudden onset vertigo worse when she moved her head. She has been trying to take meclizine at home, but has continued to have vertigo and so she called 911. Patient currently has her eyes closed and states anytime she opens her eyes or moves her head the vertigo is worse. She has chronic ringing in her left ear, unchanged from baseline. Denies numbness or weakness. States that she has not been able to walk unassisted for several months following hospitalization at [facility] Data Protection Medications Medication Instructions Recorded Confirmed aspirin 81 mg chewable tablet 162 mg PO DAILY 01/01/20 09/19/23 ferrous sulfate 325 mg (65 mg 325 mg PO DAILY 08/20/21 09/19/23 iron) tablet magnesium 250 mg tablet 250 mg PO DAILY 08/20/21 09/19/23 potassium gluconate 595 mg (99 mg) 595 mg PO DAILY 08/20/21 09/19/23 tablet pantoprazole 40 mg tablet,delayed 40 mg PO DAILY 09/14/23 09/19/23 release Previous Rx's Medication Instructions Recorded triamcinolone acetonide 0.1 % See Rx Instructions topical BID 08/20/21 topical cream #15 grams pramipexole 0.5 mg tablet (Mirapex) 0.5 mg PO BEDTIME #90 tabs 09/16/22 lisinopril 20 mg tablet 20 mg PO DAILY #90 tabs 04/01/23 hydroxyzine HCl 25 mg tablet 25 mg PO BEDTIME insomnia #30 tabs 07/28/23 tramadol 50 mg tablet 50 mg PO TID PRN pain #21 tabs 08/23/23 hydrocodone 5 mg-acetaminophen 325 1 tab PO Q4H PRN pain #20 tabs 09/16/23 mg tablet lidocaine 5 % topical patch See Rx Instructions topical 09/16/23 .COMPLEX #30 ea ondansetron 8 mg disintegrating 8 mg PO Q6-8H PRN nausea and 09/16/23 tablet vomiting #24 tabs sennosides 8.6 mg tablet (senna) 8.6 mg PO DAILY #30 tabs 09/16/23 furosemide 20 mg tablet 20 mg PO DAILY #30 tabs 09/20/23 spironolactone 25 mg tablet 25 mg PO DAILY #30 tabs 09/21/23 clonazepam 0.5 mg tablet 0.5 mg PO BEDTIME #30 tabs 09/29/23 levothyroxine 175 mcg tablet See Rx Instructions .Route 09/29/23 .COMPLEX #90 tabs meclizine 25 mg tablet 25 mg PO BID PRN dizziness #20 tabs 10/10/23 diazepam 2 mg tablet 2 mg PO TID PRN vertigo #14 tabs 10/12/23 Allergies Allergy/AdvReac Type Severity Reaction Status Date / Time hydromorphone [HYDROMORPHONE] Allergy Mild Verified 09/30/23 15:29 shellfish derived Allergy Mild shrimp Verified 09/30/23 15:29 [SHELLFISH DERIVED] azithromycin [AZITHROMYCIN] AdvReac Intermediate heart Verified 09/30/23 15:29 palpitations measles, mumps, and rubella AdvReac Intermediate Maculopapular Verified 09/30/23 15:29 vaccine rash atorvastatin [ATORVASTATIN] AdvReac Mild sore throat Verified 09/30/23 15:29 cefuroxime [CEFUROXIME] AdvReac Mild gi upset Verified 09/30/23 15:29 morphine [MORPHINE] AdvReac Mild itching Verified 09/30/23 15:29 Sulfa (Sulfonamide AdvReac Mild gi upset Verified 09/30/23 15:29 Antibiotics) [SULFA (SULFONAMIDE ANTIBIOTICS)] trimethoprim [TRIMETHOPRIM] AdvReac Mild gi upset Verified 09/30/23 15:29 metoclopramide [From Reglan] AdvReac ITCHING Verified 09/30/23 15:30 prochlorperazine AdvReac ITCHING Verified 09/30/23 15:30 [From Compazine] Review of Systems Review of Systems Narrative: Negative except as noted above Patient History Medical History History of upper GI x-ray series (12/14/04) Anemia (~1987) Vitamin D deficiency (~09/2009) Arthritis (~1985) Allergic rhinitis (~1981) RLS (restless legs syndrome) (~2007) Headache Sciatica of right side without back pain (2007) Shoulder pain (2011) Trimalleolar fracture (04/22/86) Right ankle pain (04/1986) Multiple acquired skin tags (~1979) 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) Vertigo (1996) Tinnitus (1996) Hearing loss (1996) Hemorrhoid (~2011) Heart palpitations (~2009) Hyperlipidemia (1991) Hypertension (2007) GERD (gastroesophageal reflux disease) (2004) Chicken pox (07/20/74) Measles Migraines (~1989) Anxiety (~2006) Hayfever (1981) Hypothyroidism (09/2010) Acute meniscal tear of left knee, initial encounter (10/23/15) Left-sided low back pain without sciatica (09/23/15) Endometrial polyp Surgical History Anesthesia History of esophagogastroduodenoscopy (EGD) (06/09/15) Status post ankle fusion (09/18/92) Status post hardware removal (09/1986) Status post hardware removal (06/1986) Status post surgical manipulation of ankle joint (04/22/86) Status post surgery (01/16/16) Status post knee surgery (12/09/15) Status post colonoscopy (06/02/10) Status post tubal ligation (03/30/01) Status post delivery (03/30/01) Status post dilation and curettage (02/12/99) Status post delivery (06/21/97) Status post dilation and curettage (04/22/96) Status post cholecystectomy (06/27/92) Family History Brother Age: 52 High cholesterol Daughter Age: 26 Asthma Father Age: 85 Hx of heart bypass surgery Hypertension High cholesterol Heart disease TIA (transient ischemic attack) TGA (transient global amnesia) Grandmother History of heart attack Kidney malignancy Hypertension High cholesterol Stroke Mother Age: 84 Diabetes mellitus Heart attack High cholesterol Hypertension Diabetic neuropathy Grandfather Hx of heart bypass surgery Alzheimer's disease Grandmother Diabetes mellitus Hypertension Congestive heart failure Sister Age: 63 High cholesterol Sister Age: 57 Smoker Celiac disease Sister Age: 54 Neuropathy, lateral femoral cutaneous nerve Hypothyroidism Anxiety Daughter Age: 42 No problems noted. Social History Smoking Status: Never smoker substance use type: does not use Smoking Status: Never smoker alcohol intake frequency: 0-2 drinks per day Substance Use Type: does not use Exam Initial Vital Signs Initial Vital Signs: Vital Signs Pulse Rate 80 10/12/23 18:01 Blood Pressure 145/80 H 10/12/23 18:01 Pulse Oximetry 97 10/12/23 18:01 Oxygen Delivery Method Room Air 10/12/23 18:01 Const: Awake, alert, debilitated, frail Eyes: Closed, does not open them due to severe vertigo Cardiac: regular rate, regular rhythm RESP: unlabored, clear bilaterally, no wheezing GI: Atraumatic, soft, nontender Skin: Warm, Dry, intact, no rashes Neuro: AO x3,moves all extremities Course Course Course Narrative: Patient presenting for vertigo. Unable to do complete assessment as patient will not open her eyes due to vertigo. Reports hx of meniere's disease and this feels similar. Not controlled with home meclizine. Will order valium and labs. Orders Ordered: ED Orders 10/12/23 18:31 CBC Auto Diff [Complete Blood Count AUTO DIFF] Stat CMP [Comprehensive Metabolic Panel] Stat 10/12/23 20:40 CT angio head and neck Stat CT head/brain wo con Stat Discontinued Medications Diazepam (Diazepam 10 Mg/2 Ml Syringe) 5 mg IV NOW ONE Stop: 10/12/23 18:18 Last Admin: 10/12/23 18:38 Dose: 5 mg Documented By: PRUDENCE Diazepam (Diazepam 10 Mg/2 Ml Syringe) 2 mg IV NOW ONE Stop: 10/12/23 20:22 Last Admin: 10/12/23 20:28 Dose: 2 mg Documented By: PRUDENCE Sodium Chloride (Normal Saline 0.9%) 1,000 mls @ 1,000 mls/hr IV BOLUS ONE Stop: 10/12/23 19:16 Last Infusion: 10/12/23 19:37 Dose: Infused Documented By: Admin: 10/12/23 18:38 Dose: 1,000 mls/hr Documented By: PRUDENCE Sodium Chloride (Normal Saline 0.9%) 1,000 mls @ 1,000 mls/hr IV BOLUS ONE Stop: 10/12/23 21:09 Last Infusion: 10/12/23 21:55 Dose: Infused Documented By: Admin: 10/12/23 20:29 Dose: 1,000 mls/hr Documented By: PRUDENCE Reevaluation(s) Reevaluation #1: Laboratory work appears improved from recent stay, patient is still neutropenic, however not nearly as bad as her visit [address] brain and CT angio negative for acute findings. Patient reports feeling much better after Valium and IV fluids. She is able to open her eyes, move her head around, and read when she was previously unable to do so due to the extent of her vertigo. Patient advised to follow up with her oncologist and primary care physician. She will continue meclizine, but was given a prescription for Valium if the meclizine does not control her symptoms at home. Patient and family expressed understanding of plan and are in agreement at this time. All questions answered at time of discharge. Vital Signs Vital signs: Vital Signs - 8 hr 10/12/23 18:01 10/12/23 18:06 10/12/23 18:30 Temperature 97.5 F L Pulse Rate 80 81 Respiratory Rate 20 Blood Pressure 145/80 H 145/80 H 140/92 H Pulse Oximetry 97 100 Oxygen Delivery Method Room Air Room Air 10/12/23 18:30 10/12/23 19:00 10/12/23 19:30 Temperature Pulse Rate 79 79 Respiratory Rate 17 20 Blood Pressure 140/92 H 143/76 H 152/78 H Pulse Oximetry 93 92 Oxygen Delivery Method Room Air 10/12/23 19:30 10/12/23 20:00 10/12/23 20:00 Temperature Pulse Rate 77 80 Respiratory Rate 29 H 19 Blood Pressure 137/78 Pulse Oximetry 95 94 Oxygen Delivery Method 10/12/23 20:30 10/12/23 20:30 10/12/23 21:01 Temperature Pulse Rate 80 92 H Respiratory Rate 29 H 17 Blood Pressure 146/78 H Pulse Oximetry 95 94 Oxygen Delivery Method 10/12/23 21:02 10/12/23 21:02 10/12/23 21:30 Temperature Pulse Rate 82 78 Respiratory Rate 28 H Blood Pressure 153/84 H Pulse Oximetry 96 95 Oxygen Delivery Method Medical Decision Making Lab Data 10/12/23 18:31 10/12/23 18:31 Labs: Lab Results 10/12/23 Range/Units 18:31 WBC 4.4 L (4.5-11.0) X10^3/uL RBC 3.48 L (4.0-5.2) X10^6/uL Hgb 10.1 L (12.0-16.0) g/dL Hct 30.3 L (36-46) % MCV 87.2 (80-100) fL MCH 29.0 (26-34) PG MCHC 33.3 (30-36) % RDW 15.3 H (11.6-14.8) % Plt Count 276 (150-400) X10^3/uL Neut % (Auto) 61.1 (50-75) % Lymph % (Auto) 24.8 L (25-40) % Evans % (Auto) 8.1 (3-14) % Eos % (Auto) 4.0 (2-4) % Baso % (Auto) 2.0 (0-2) % Neut # (Auto) 2700 (3996-8920) /uL Lymph # (Auto) 1100 (8765-1970) /uL Evans # (Auto) 400 (0-900) /uL Eos # (Auto) 200 (0-450) /uL Baso # (Auto) 100 (0-100) /uL Sodium 132 L (137-145) mmol/L Potassium 3.6 (3.4-5.1) mmol/L Chloride 97 L (98-107) mmol/L Carbon Dioxide 29 (22-32) mmol/L BUN 8 (7-17) mg/dL Creatinine 0.72 (0.52-1.04) mg/dL Estimated GFR > 60 (>60) mL/min BUN/Creatinine Ratio 11.1 (6-22) Glucose 97 (80-110) mg/dL Calcium 9.3 (8.4-10.2) mg/dL Total Bilirubin 0.6 (0.2-1.3) mg/dL AST 25 (14-36) IU/L ALT 14 (<35) IU/L Alkaline Phosphatase 88 (38-126) U/L Total Protein 6.7 (6.3-8.2) g/dL Albumin 3.6 (3.5-5.0) g/dL Globulin 3.1 (1.7-4.1) g/dL Albumin/Globulin Ratio 1.2 (1.0-2.8) Discharge Plan Departure Patient Disposition: Home Clinical Impression: Vertigo, Gastric cancer, Leukopenia due to antineoplastic chemotherapy Instructions: DI for Vertigo Prescriptions: New diazepam 2 mg tablet 2 mg PO TID PRN (Reason: vertigo) Qty: 14 0RF No Action magnesium 250 mg tablet 250 mg PO DAILY potassium gluconate 595 mg (99 mg) tablet 595 mg PO DAILY ferrous sulfate 325 mg (65 mg iron) tablet 325 mg PO DAILY triamcinolone acetonide 0.1 % cream See Rx Instructions topical BID Qty: 15 0RF Rx Instructions: 1 mg topically bid TOP BID pramipexole [Mirapex] 0.5 mg tablet 0.5 mg PO BEDTIME Qty: 90 1RF lisinopril 20 mg tablet 20 mg PO DAILY Qty: 90 2RF hydroxyzine HCl 25 mg tablet 25 mg PO BEDTIME Qty: 30 0RF Rx Instructions: take one or two tablets as needed at bedtime tramadol 50 mg tablet 50 mg PO TID PRN (Reason: pain) Qty: 21 0RF Rx Instructions: Take one tablet up to every 8 hours as needed for pain pantoprazole 40 mg tablet,delayed release (DR/EC) 40 mg PO DAILY ondansetron 8 mg tablet,disintegrating 8 mg PO Q6-8H PRN (Reason: nausea and vomiting) Qty: 24 2RF sennosides [senna] 8.6 mg tablet 8.6 mg PO DAILY Qty: 30 2RF lidocaine 5 % adhesive patch,medicated See Rx Instructions topical .COMPLEX Qty: 30 1RF Rx Instructions: leave on most painful area for up to 12 hrs topical hydrocodone-acetaminophen 5-325 mg tablet 1 tab PO Q4H PRN (Reason: pain) Qty: 20 0RF clonazepam 0.5 mg tablet 0.5 mg PO BEDTIME Qty: 30 0RF Rx Instructions: administer 30 minutes before bedtime levothyroxine 175 mcg tablet See Rx Instructions .ROUTE .COMPLEX Qty: 90 1RF Dose Instruction: TAKE ONE TABLET BY MOUTH ONE TIME DAILY Rx Instructions: TAKE ONE TABLET BY MOUTH ONE TIME DAILY meclizine 25 mg tablet 25 mg PO BID PRN (Reason: dizziness) Qty: 20 1RF Rx Instructions: use as needed up to twice daily for dizziness. spironolactone 25 mg tablet 25 mg PO DAILY Qty: 30 1RF furosemide 20 mg tablet 20 mg PO DAILY Qty: 30 0RF aspirin 81 mg Tablet,Chewable 162 mg PO DAILY Referrals: Stan Kothari MD [Primary Care Provider] - Stand Alone Forms: Patient Portal/API
[2023-10-12] MEDS: diazePAM 10 MG/2 ML SYRINGE 5 MG IV (18:38)
[2023-10-12] MEDS: SODIUM CHLORIDE 0.9% 1,000 ML 1000 ML IV ×2 (18:38→20:29)
[2023-10-12 18:56] LABS: Add Manual Diff / Slide Review NO; Basophils Absolute Auto 100 /uL (0-100); Eosinophils Absolute Auto 200 /uL (0-450); Hematocrit 30.3 % (36-46); Hemoglobin 10.1 g/dL (12.0-16.0); Lymphocytes Absolute Auto 1100 /uL (1100-4500); Lymphocytes Percent Auto 24.8 % (25-40); Mean Corpuscular HGB Conc 33.3 % (30-36); Mean Corpuscular Volume 87.2 fL (80-100); Monocytes Absolute Auto 400 /uL (0-900); Monocytes Percent Auto 8.1 % (3-14); Neutrophils Absolute Auto 2700 /uL (1500-7000); Neutrophils Percent Auto 61.1 % (50-75); Platelet Count 276 X10^3/uL (150-400); Red Blood Cell Count 3.48 X10^6/uL (4.0-5.2); Red Cell Distribution Width 15.3 % (11.6-14.8); White Blood Cell Count 4.4 X10^3/uL (4.5-11.0)
[2023-10-12 19:02] LABS: Alanine Aminotransferase 14 IU/L (<35); Albumin 3.6 g/dL (3.5-5.0); Albumin Globulin Ratio 1.2 (1.0-2.8); Alkaline Phosphatase 88 U/L (38-126); Aspartate Aminotransferase 25 IU/L (14-36); BUN Creatinine Ratio 11.1 (6-22); Bilirubin Total 0.6 mg/dL (0.2-1.3); Blood Urea Nitrogen 8 mg/dL (7-17); Calcium 9.3 mg/dL (8.4-10.2); Carbon Dioxide 29 mmol/L (22-32); Chloride 97 mmol/L (98-107); Estimated Glomerular Filt Rate > 60 mL/min (>60); Globulin 3.1 g/dL (1.7-4.1); Glucose 97 mg/dL (80-110); HEMOLYSIS < 15 (0-50); Potassium 3.6 mmol/L (3.4-5.1); Sodium 132 mmol/L (137-145); Total Protein 6.7 g/dL (6.3-8.2)
--- NOTE | 2023-10-12 19:22 | PC.NURSE ---
Pt laying in bed with eyes closed and opens eyes when spoken to by this RN. Pt reports continued vertigo and reports that she is having a hard time determining if the Valium given to her is helping with her symptoms. Respirations are regular and unlabored with equal chest rise. Skin warm dry and pink in color. Pt A&Ox4.
[2023-10-12] MEDS: diazePAM 10 MG/2 ML SYRINGE 2 MG IV (20:28)
--- NOTE | 2023-10-12 20:40 | DI.CT.S_ITS ---
PROCEDURE: CT HEAD/BRAIN WO CON INDICATIONS: vertigo x3 days TECHNIQUE: Noncontrast 4.5 mm thick angled axial sections acquired from the foramen magnum to the vertex, with coronal and sagittal reformats. For radiation dose reduction, the following was used: automated exposure control, adjustment of mA and/or kV according to patient size. COMPARISON: None. FINDINGS: Image quality: Diagnostic CSF spaces: Basal cisterns are patent. Lateral ventricles are symmetric. Volume: Vascular calcifications. Periventricular white matter disease is commonly seen with chronic microangiopathy. Volume loss is present. These findings are Brain: No intracranial hemorrhage. Hoyt-white differentiation is grossly maintained. Craniofacial structures: No displaced fracture. Sinuses are clear. Orbits are intact. IMPRESSION: No acute intracranial abnormality. If there is high concern for parenchymal pathology, consider further evaluation with MRI. Dictated by: Larry Lorenzo M.D. on 10/12/2023 at 21:21 Approved by: Larry Lorenzo M.D. on 10/12/2023 at 21:23
--- NOTE | 2023-10-12 20:40 | DI.CT.S_ITS ---
PROCEDURE: CT ANGIO HEAD AND NECK INDICATIONS: vertigo x3 days TECHNIQUE: After the administration of intravenous contrast, 1 mm thick sections acquired from the aortic arch through the [place]. 3-dimensional [id number] (MIP) and/or volume rendering reformats were acquired of the central intracranial vasculature and neck separately. For radiation dose reduction, the following was used: automated exposure control, adjustment of mA and/or kV according to patient size. COMPARISON: None. FINDINGS: Image quality: Diagnostic HEAD ANGIOGRAPHY: Anterior circulation: ICAs: The minimal cavernous carotid calcifications ACAs: Normal and symmetric MCAs: Possible small infundibulum from the mid M1. Otherwise patent bilaterally. AComm: No aneurysm Venous sinuses: Patent where visualized Posterior circulation: Dominance: Equal Vertebral arteries: No stenosis or occlusion. No aneurysm. Basilar artery: Patent PComms: No aneurysm [employer]: Unremarkable NECK ANGIOGRAPHY: Aortic arch and subclavian arteries: Normal flow, no aneurysm. CCAs: No stenosis, occlusion, or aneurysm. ICA origins (by NASCET criteria): No narrowing appreciated ICAs: No stenosis, occlusion or aneurysm. ECAs: Origins are patent. Vertebral arteries: Unremarkable Soft tissues: Partially seen pleural effusions bilaterally and right port catheter Lung apices: No pneumothorax Bones: Degenerative changes. IMPRESSION: No significant stenosis or large vessel occlusion. If there is high concern for infarct, consider MRI. Other findings as above. Partially seen pleural effusions. Any quantitative measurements of stenosis were performed using NASCET criteria. Dictated by: Larry Lorenzo M.D. on 10/12/2023 at 21:39 Approved by: Larry Lorenzo M.D. on 10/12/2023 at 21:46
== END 2023-10-12 22:22 | disposition home or self-care (01) ==
PROVIDERS: Emergency Provider Emergency Medicine; PCP Family Medicine
DX: R42 Dizziness and giddiness (principal); C16.9 Malignant neoplasm of stomach, unspecified; D70.1 Agranulocytosis secondary to cancer chemotherapy; Z79.899 Other long term (current) drug therapy
CPT/HCPCS: 70450; 70496; 70498; 80053; 85025; 96361; 96374; 96376; 99283; 99284; J3360; Q9967

== ENCOUNTER 2023-10-17 02:11 | Emergency (ER) | payer OTHER, SELFPAY ==
[2023-10-17] VITALS (10 sets, daily range): BP systolic 117–143; BP diastolic 57–73; PULSE 66–71; RESP 15–21; TEMP 36.6; O2SAT 90–96; BMI 37.4
--- NOTE | 2023-10-17 02:31 | DI.RAD.S_ITS ---
PROCEDURE: XR CHEST 1V INDICATIONS: chest pain TECHNIQUE: One view of the chest was acquired. COMPARISON: [facility], CR, XR CHEST 1V, 10/04/2023, 16:25. FINDINGS: Surgical changes and devices: Right tunneled port device is unchanged in positioning. Lungs and pleura: Bilateral pleural effusions. Streaky bibasilar opacities likely representing compressive atelectasis. No new focal airspace disease identified. Mediastinum: Mediastinal contours appear normal. Heart size is normal. Bones and chest wall: No suspicious bony lesions. Overlying soft tissues appear unremarkable. IMPRESSION: Persistent bilateral pleural effusions with streaky bibasilar opacities favored to represent atelectasis. Concurrent airspace disease/pneumonia not excluded if clinically appropriate. No significant discrepancy with the rn trauma radiology preliminary report. Dictated by: Gunner Dominguez M.D. on 10/17/2023 at 8:05 Approved by: Gunner Dominguez M.D. on 10/17/2023 at 8:07
--- NOTE | 2023-10-17 02:39 | ED.DIZZY ---
HPI - Dizziness General Chief Complaint: Dizziness Stated Complaint: vertigo Time Seen by Provider: 10/17/23 02:26 Source: patient and family Mode of arrival: Wheelchair History of Present Illness HPI Narrative: Patient is a 63-year-old female history of Meniere's disease, currently being treated for stage IV gastric cancer followed by oncology at [facility] presenting for the 3rd time this month with dizziness and vertigo. She was seen evaluated here on October 07 and October 12 for vertigo symptoms. She reports that she has been doing well she is Meniere's disease in the vertigo symptoms she has not had for a long time. However seems to be increasing. She took 4 mg of Valium and meclizine around 8:00 p.m. tonight she was able to close her eyes and sleep for a little bit however she has no longer able to. She feels like the room is spinning she feels nauseous. No numbness tingling or weakness. She reports that after being in the ED twice this month already she got better each time. She is due for chemotherapy this week. She denies any fever. She denies any shortness of breath. She is some mild left-sided abdominal discomfort Related Data Home Medications Medication Instructions Recorded Confirmed aspirin 81 mg chewable tablet 162 mg PO DAILY 01/01/20 09/19/23 ferrous sulfate 325 mg (65 mg 325 mg PO DAILY 08/20/21 09/19/23 iron) tablet magnesium 250 mg tablet 250 mg PO DAILY 08/20/21 09/19/23 potassium gluconate 595 mg (99 mg) 595 mg PO DAILY 08/20/21 09/19/23 tablet pantoprazole 40 mg tablet,delayed 40 mg PO DAILY 09/14/23 09/19/23 release Previous Rx's Medication Instructions Recorded triamcinolone acetonide 0.1 % See Rx Instructions topical BID 08/20/21 topical cream #15 grams pramipexole 0.5 mg tablet (Mirapex) 0.5 mg PO BEDTIME #90 tabs 09/16/22 lisinopril 20 mg tablet 20 mg PO DAILY #90 tabs 04/01/23 hydroxyzine HCl 25 mg tablet 25 mg PO BEDTIME insomnia #30 tabs 07/28/23 tramadol 50 mg tablet 50 mg PO TID PRN pain #21 tabs 08/23/23 hydrocodone 5 mg-acetaminophen 325 1 tab PO Q4H PRN pain #20 tabs 09/16/23 mg tablet lidocaine 5 % topical patch See Rx Instructions topical 09/16/23 .COMPLEX #30 ea ondansetron 8 mg disintegrating 8 mg PO Q6-8H PRN nausea and 09/16/23 tablet vomiting #24 tabs sennosides 8.6 mg tablet (senna) 8.6 mg PO DAILY #30 tabs 09/16/23 furosemide 20 mg tablet 20 mg PO DAILY #30 tabs 09/20/23 spironolactone 25 mg tablet 25 mg PO DAILY #30 tabs 09/21/23 clonazepam 0.5 mg tablet 0.5 mg PO BEDTIME #30 tabs 09/29/23 levothyroxine 175 mcg tablet See Rx Instructions .Route 09/29/23 .COMPLEX #90 tabs meclizine 25 mg tablet 25 mg PO BID PRN dizziness #20 tabs 10/10/23 diazepam 2 mg tablet 2 mg PO TID PRN vertigo #14 tabs 10/12/23 Allergies Allergy/AdvReac Type Severity Reaction Status Date / Time hydromorphone [HYDROMORPHONE] Allergy Mild Verified 09/30/23 15:29 shellfish derived Allergy Mild shrimp Verified 09/30/23 15:29 [SHELLFISH DERIVED] azithromycin [AZITHROMYCIN] AdvReac Intermediate heart Verified 09/30/23 15:29 palpitations measles, mumps, and rubella AdvReac Intermediate Maculopapular Verified 09/30/23 15:29 vaccine rash atorvastatin [ATORVASTATIN] AdvReac Mild sore throat Verified 09/30/23 15:29 cefuroxime [CEFUROXIME] AdvReac Mild gi upset Verified 09/30/23 15:29 morphine [MORPHINE] AdvReac Mild itching Verified 09/30/23 15:29 Sulfa (Sulfonamide AdvReac Mild gi upset Verified 09/30/23 15:29 Antibiotics) [SULFA (SULFONAMIDE ANTIBIOTICS)] trimethoprim [TRIMETHOPRIM] AdvReac Mild gi upset Verified 09/30/23 15:29 metoclopramide [From Reglan] AdvReac ITCHING Verified 09/30/23 15:30 prochlorperazine AdvReac ITCHING Verified 09/30/23 15:30 [From Compazine] Patient History Medical History History of upper GI x-ray series (12/14/04) Anemia (~1987) Vitamin D deficiency (~09/2009) Arthritis (~1985) Allergic rhinitis (~1981) RLS (restless legs syndrome) (~2007) Headache Sciatica of right side without back pain (2007) Shoulder pain (2011) Trimalleolar fracture (04/22/86) Right ankle pain (04/1986) Multiple acquired skin tags (~1979) 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) Vertigo (1996) Tinnitus (1996) Hearing loss (1996) Hemorrhoid (~2011) Heart palpitations (~2009) Hyperlipidemia (1991) Hypertension (2007) GERD (gastroesophageal reflux disease) (2004) Chicken pox (07/20/74) Measles Migraines (~1989) Anxiety (~2006) Hayfever (1981) Hypothyroidism (09/2010) Acute meniscal tear of left knee, initial encounter (10/23/15) Left-sided low back pain without sciatica (09/23/15) Endometrial polyp Surgical History Anesthesia History of esophagogastroduodenoscopy (EGD) (06/09/15) Status post ankle fusion (09/18/92) Status post hardware removal (09/1986) Status post hardware removal (06/1986) Status post surgical manipulation of ankle joint (04/22/86) Status post surgery (01/16/16) Status post knee surgery (12/09/15) Status post colonoscopy (06/02/10) Status post tubal ligation (03/30/01) Status post delivery (03/30/01) Status post dilation and curettage (02/12/99) Status post delivery (06/21/97) Status post dilation and curettage (04/22/96) Status post cholecystectomy (06/27/92) Family History Brother Age: 52 High cholesterol Daughter Age: 26 Asthma Father Age: 85 Hx of heart bypass surgery Hypertension High cholesterol Heart disease TIA (transient ischemic attack) TGA (transient global amnesia) Grandmother History of heart attack Kidney malignancy Hypertension High cholesterol Stroke Mother Age: 84 Diabetes mellitus Heart attack High cholesterol Hypertension Diabetic neuropathy Grandfather Hx of heart bypass surgery Alzheimer's disease Grandmother Diabetes mellitus Hypertension Congestive heart failure Sister Age: 63 High cholesterol Sister Age: 57 Smoker Celiac disease Sister Age: 54 Neuropathy, lateral femoral cutaneous nerve Hypothyroidism Anxiety Daughter Age: 42 No problems noted. Social History Smoking Status: Never smoker substance use type: does not use Smoking Status: Never smoker alcohol intake frequency: 0-2 drinks per day Substance Use Type: does not use Exam Initial Vital Signs Initial Vital Signs: Vital Signs Temperature 97.8 F 10/17/23 02:25 Pulse Rate 71 10/17/23 02:25 Respiratory Rate 18 10/17/23 02:25 Blood Pressure 141/73 H 10/17/23 02:25 Pulse Oximetry 96 10/17/23 02:25 Oxygen Delivery Method Room Air 10/17/23 02:25 GENERAL: Alert 63-year-old female appears to not feel well and in no acute distress. HEENT: Head atraumatic,EOMI, pupils reactive, face symmetric, moist mucous membranes CARDIOVASCULAR: Regular rate and rhythm without murmurs, rubs or gallops. RESPIRATORY: Breath sounds equal bilaterally, no wheezes rales or rhonchi. No respiratory distress ABDOMEN: Soft, nontender. Normoactive bowel sounds all 4 quadrants. No guarding or rebound. EXTREMITIES: Normal range of motion, no clubbing or edema. Neurovascularly intact NEUROLOGICAL: Alert and oriented x4.Normal gait and speech. No facial droop account resolution specialist strength equal bilaterally SKIN: Warm, dry, no laceration, no petechiae, no rashes or lesions. Course Orders Ordered: ED Orders 10/17/23 02:31 XR chest 1V Stat EKG-12 Lead Stat 10/17/23 02:49 Complete Blood Count AUTO DIFF Stat Comprehensive Metabolic Panel Stat Lipase Stat Troponin & CK Cardiac Panel Stat Discontinued Medications Aspirin (Aspirin 81 Mg Chew Tab) 324 mg PO NOW ONE Stop: 10/17/23 02:28 Last Admin: 10/17/23 02:55 Dose: Not Given Documented By: BB Diazepam (Diazepam 10 Mg/2 Ml Syringe) 2 mg IV NOW ONE Stop: 10/17/23 02:38 Last Admin: 10/17/23 02:54 Dose: 2 mg Documented By: DIONISIO Sodium Chloride (Normal Saline 0.9%) 1,000 mls @ 1,000 mls/hr IV CONT HERRERA Last Infusion: 10/17/23 05:10 Dose: Infused Documented By: Infusion: 10/17/23 03:59 Dose: Infused Documented By: Admin: 10/17/23 02:56 Dose: 1,000 mls/hr Documented By: DIONISIO Sodium Chloride (Normal Saline 0.9%) 1,000 mls @ 1,000 mls/hr IV BOLUS ONE Stop: 10/17/23 04:48 Last Infusion: 10/17/23 05:10 Dose: Infused Documented By: Admin: 10/17/23 04:00 Dose: 1,000 mls/hr Documented By: JON Meclizine HCl (Meclizine Hcl 12.5 Mg Tablet) 50 mg PO NOW ONE Stop: 10/17/23 02:38 Last Admin: 10/17/23 02:54 Dose: 50 mg Documented By: DIONISIO Ondansetron HCl (Ondansetron 4 Mg/2 Ml Inj) 4 mg IV NOW ONE Stop: 10/17/23 02:28 Last Admin: 10/17/23 02:54 Dose: 4 mg Documented By: DIONISIO Vital Signs Vital signs: Vital Signs - 8 hr 10/17/23 02:25 10/17/23 02:26 10/17/23 02:29 Temperature 97.8 F Pulse Rate 71 70 66 Respiratory Rate 18 21 Blood Pressure 141/73 H Pulse Oximetry 96 95 96 Oxygen Delivery Method Room Air Room Air Room Air 10/17/23 02:29 10/17/23 02:30 10/17/23 02:30 Temperature Pulse Rate 67 Respiratory Rate 20 Blood Pressure 122/70 122/64 Pulse Oximetry 94 Oxygen Delivery Method Room Air 10/17/23 03:00 10/17/23 03:01 10/17/23 03:01 Temperature Pulse Rate 67 68 Respiratory Rate 17 17 Blood Pressure 142/70 H Pulse Oximetry 91 90 L Oxygen Delivery Method 10/17/23 03:30 10/17/23 03:30 10/17/23 04:00 Temperature Pulse Rate 68 66 Respiratory Rate 17 15 Blood Pressure 117/57 L Pulse Oximetry 91 93 Oxygen Delivery Method Room Air 10/17/23 04:00 10/17/23 04:30 10/17/23 04:30 Temperature Pulse Rate 66 Respiratory Rate 15 Blood Pressure 119/57 L 127/60 Pulse Oximetry 91 Oxygen Delivery Method 10/17/23 05:00 10/17/23 05:00 Temperature Pulse Rate 69 Respiratory Rate 15 Blood Pressure 143/61 H Pulse Oximetry 93 Oxygen Delivery Method MDM - Dizziness Lab Data 10/17/23 02:49 10/17/23 02:49 Labs: Lab Results 10/17/23 Range/Units 02:49 WBC 4.5 (4.5-11.0) X10^3/uL RBC 3.56 L (4.0-5.2) X10^6/uL Hgb 10.2 L (12.0-16.0) g/dL Hct 31.4 L (36-46) % MCV 88.2 (80-100) fL MCH 28.6 (26-34) PG MCHC 32.4 (30-36) % RDW 16.2 H (11.6-14.8) % Plt Count 218 (150-400) X10^3/uL Neut % (Auto) 61.7 (50-75) % Lymph % (Auto) 20.8 L (25-40) % [place] % (Auto) 14.2 H (3-14) % Eos % (Auto) 2.4 (2-4) % Baso % (Auto) 0.9 (0-2) % Neut # (Auto) 2800 (3614-5694) /uL Lymph # (Auto) 900 L (0415-6768) /uL [place] # (Auto) 600 (0-900) /uL Eos # (Auto) 100 (0-450) /uL Baso # (Auto) 0 (0-100) /uL Sodium 135 L (137-145) mmol/L Potassium 3.4 (3.4-5.1) mmol/L Chloride 101 (98-107) mmol/L Carbon Dioxide 29 (22-32) mmol/L BUN 11 (7-17) mg/dL Creatinine 0.81 (0.52-1.04) mg/dL Estimated GFR > 60 (>60) mL/min BUN/Creatinine Ratio 13.6 (6-22) Glucose 108 (80-110) mg/dL Calcium 9.8 (8.4-10.2) mg/dL Total Bilirubin 0.7 (0.2-1.3) mg/dL AST 25 (14-36) IU/L ALT 13 (<35) IU/L Alkaline Phosphatase 92 (38-126) U/L Total Creatine Kinase 25 L (30-135) U/L Troponin I < 0.012 (0.01-0.034) ng/mL Total Protein 6.8 (6.3-8.2) g/dL Albumin 3.6 (3.5-5.0) g/dL Globulin 3.2 (1.7-4.1) g/dL Albumin/Globulin Ratio 1.1 (1.0-2.8) Lipase 98 (23-300) U/L Imaging Data Chest x-ray: Radiologist's Impression: Small bilateral pleural effusions with lazy opacities at lung bases which may indicate atelectasis or infiltrate ECG Data Interpretation: Normal sinus rhythm rate 69 IN interval 166 QRS 94 QTC 450 MDM Narrative Medical decision making narrative: Patient is 63-year-old female history of Meniere's disease with metastatic gastric cancer presenting today for the 3rd time this month with vertigo. She has previously had workup including head CT and CT angio. He is also previously gotten better with fluids and Valium. She has no neurologic deficits. Initially eating to sit up rate and keep her eyes open. Blood work has been reviewed without clinical significant abnormalities Chest x-ray reviewed Patient is given 2 L IV fluid Valium and meclizine in the ED. She is again feeling much better. No focal deficits. Unclear why she continues to have these exacerbations of her Meniere's disease and vertigo. After fluids he is feeling significantly better and is ready to go home. At this time I see no need for repeat imaging or further evaluation. He is afebrile she is not neutropenic Discharge Plan Departure Patient Disposition: Home Clinical Impression: Vertigo Instructions: DI for Vertigo Activity Restrictions/Additional Instructions: *You have been diagnosed with vertigo *What to do: At this time go home and rest. I hope that this improves for you I am sorry it keeps happening. *Continue to take medications as directed Valium 2 mg every 12 hours if needed for dizziness Meclizine 25-50 mg every 8 hours if needed for dizziness *Follow up with your primary care provider in 2-3 days or call [phone] *Return to ER if you should have increasing dizziness numbness tingling weakness persistent vomiting [or] any new, worsening or concerning symptoms Prescriptions: No Action magnesium 250 mg tablet 250 mg PO DAILY potassium gluconate 595 mg (99 mg) tablet 595 mg PO DAILY ferrous sulfate 325 mg (65 mg iron) tablet 325 mg PO DAILY triamcinolone acetonide 0.1 % cream See Rx Instructions topical BID Qty: 15 0RF Rx Instructions: 1 mg topically bid TOP BID pramipexole [Mirapex] 0.5 mg tablet 0.5 mg PO BEDTIME Qty: 90 1RF lisinopril 20 mg tablet 20 mg PO DAILY Qty: 90 2RF hydroxyzine HCl 25 mg tablet 25 mg PO BEDTIME Qty: 30 0RF Rx Instructions: take one or two tablets as needed at bedtime tramadol 50 mg tablet 50 mg PO TID PRN (Reason: pain) Qty: 21 0RF Rx Instructions: Take one tablet up to every 8 hours as needed for pain pantoprazole 40 mg tablet,delayed release (DR/EC) 40 mg PO DAILY ondansetron 8 mg tablet,disintegrating 8 mg PO Q6-8H PRN (Reason: nausea and vomiting) Qty: 24 2RF sennosides [senna] 8.6 mg tablet 8.6 mg PO DAILY Qty: 30 2RF lidocaine 5 % adhesive patch,medicated See Rx Instructions topical .COMPLEX Qty: 30 1RF Rx Instructions: leave on most painful area for up to 12 hrs topical hydrocodone-acetaminophen 5-325 mg tablet 1 tab PO Q4H PRN (Reason: pain) Qty: 20 0RF clonazepam 0.5 mg tablet 0.5 mg PO BEDTIME Qty: 30 0RF Rx Instructions: administer 30 minutes before bedtime levothyroxine 175 mcg tablet See Rx Instructions .ROUTE .COMPLEX Qty: 90 1RF Dose Instruction: TAKE ONE TABLET BY MOUTH ONE TIME DAILY Rx Instructions: TAKE ONE TABLET BY MOUTH ONE TIME DAILY meclizine 25 mg tablet 25 mg PO BID PRN (Reason: dizziness) Qty: 20 1RF Rx Instructions: use as needed up to twice daily for dizziness. spironolactone 25 mg tablet 25 mg PO DAILY Qty: 30 1RF furosemide 20 mg tablet 20 mg PO DAILY Qty: 30 0RF diazepam 2 mg tablet 2 mg PO TID PRN (Reason: vertigo) Qty: 14 0RF aspirin 81 mg Tablet,Chewable 162 mg PO DAILY Referrals: Stan Kothari MD [Primary Care Provider] - Stand Alone Forms: Patient Portal/API
[2023-10-17] MEDS: ONDANSETRON 4 MG/2 ML INJ IV (02:54)
[2023-10-17] MEDS: diazePAM 10 MG/2 ML SYRINGE 2 MG IV (02:54)
[2023-10-17] MEDS: MECLIZINE HCL 12.5 MG TABLET 50 MG PO (02:54)
[2023-10-17] MEDS: SODIUM CHLORIDE 0.9% 1,000 ML 1000 ML IV ×2 (02:56→04:00)
[2023-10-17 03:08] LABS: Add Manual Diff / Slide Review NO; Basophils Absolute Auto 0 /uL (0-100); Basophils Percent Auto 0.9 % (0-2); Eosinophils Absolute Auto 100 /uL (0-450); Eosinophils Percent Auto 2.4 % (2-4); Hematocrit 31.4 % (36-46); Hemoglobin 10.2 g/dL (12.0-16.0); Lymphocytes Absolute Auto 900 /uL (1100-4500); Lymphocytes Percent Auto 20.8 % (25-40); Mean Corpuscular HGB Conc 32.4 % (30-36); Mean Corpuscular Hemoglobin 28.6 PG (26-34); Mean Corpuscular Volume 88.2 fL (80-100); Monocytes Absolute Auto 600 /uL (0-900); Monocytes Percent Auto 14.2 % (3-14); Neutrophils Absolute Auto 2800 /uL (1500-7000); Neutrophils Percent Auto 61.7 % (50-75); Platelet Count 218 X10^3/uL (150-400); Red Blood Cell Count 3.56 X10^6/uL (4.0-5.2); Red Cell Distribution Width 16.2 % (11.6-14.8); White Blood Cell Count 4.5 X10^3/uL (4.5-11.0)
[2023-10-17 03:11] LABS: Alanine Aminotransferase 13 IU/L (<35); Albumin 3.6 g/dL (3.5-5.0); Albumin Globulin Ratio 1.1 (1.0-2.8); Alkaline Phosphatase 92 U/L (38-126); Aspartate Aminotransferase 25 IU/L (14-36); BUN Creatinine Ratio 13.6 (6-22); Bilirubin Total 0.7 mg/dL (0.2-1.3); Blood Urea Nitrogen 11 mg/dL (7-17); Calcium 9.8 mg/dL (8.4-10.2); Carbon Dioxide 29 mmol/L (22-32); Chloride 101 mmol/L (98-107); Creatine Kinase 25 U/L (30-135); Estimated Glomerular Filt Rate > 60 mL/min (>60); Globulin 3.2 g/dL (1.7-4.1); Glucose 108 mg/dL (80-110); HEMOLYSIS < 15 (0-50); Lipase 98 U/L (23-300); Potassium 3.4 mmol/L (3.4-5.1); Sodium 135 mmol/L (137-145); Total Protein 6.8 g/dL (6.3-8.2)
[2023-10-17 03:22] LABS: Troponin I < 0.012 ng/mL (0.01-0.034)
== END 2023-10-17 05:34 | disposition home or self-care (01) ==
PROVIDERS: Emergency Provider Emergency Medicine; PCP Family Medicine
DX: R42 Dizziness and giddiness (principal); R10.9 Unspecified abdominal pain; Z79.899 Other long term (current) drug therapy; C16.9 Malignant neoplasm of stomach, unspecified
CPT/HCPCS: 36415; 71045; 80053; 82550; 83690; 84484; 85025; 93005; 93010; 96361; 96374; 96375; 99284; J2405; J3360

== ENCOUNTER → 2023-10-18 12:16 | Outpatient (CLI) | payer OTHER, SELFPAY ==
[2023-10-18 13:07] LABS: Add Manual Diff / Slide Review NO; Basophils Absolute Auto 0 /uL (0-100); Basophils Percent Auto 0.6 % (0-2); Eosinophils Absolute Auto 100 /uL (0-450); Eosinophils Percent Auto 3.3 % (2-4); Hematocrit 31.3 % (36-46); Hemoglobin 10.3 g/dL (12.0-16.0); Lymphocytes Absolute Auto 900 /uL (1100-4500); Lymphocytes Percent Auto 20.1 % (25-40); Mean Corpuscular HGB Conc 32.8 % (30-36); Mean Corpuscular Volume 88.2 fL (80-100); Monocytes Absolute Auto 400 /uL (0-900); Monocytes Percent Auto 10.1 % (3-14); Neutrophils Absolute Auto 2800 /uL (1500-7000); Neutrophils Percent Auto 65.9 % (50-75); Platelet Count 206 X10^3/uL (150-400); Red Blood Cell Count 3.55 X10^6/uL (4.0-5.2); Red Cell Distribution Width 16.3 % (11.6-14.8); White Blood Cell Count 4.3 X10^3/uL (4.5-11.0)
[2023-10-18 13:43] LABS: Alanine Aminotransferase 13 IU/L (<35); Albumin 3.4 g/dL (3.5-5.0); Albumin Globulin Ratio 1.1 (1.0-2.8); Alkaline Phosphatase 78 U/L (38-126); Aspartate Aminotransferase 24 IU/L (14-36); BUN Creatinine Ratio 11.5 (6-22); Bilirubin Total 0.5 mg/dL (0.2-1.3); Blood Urea Nitrogen 9 mg/dL (7-17); Calcium 9.5 mg/dL (8.4-10.2); Carbon Dioxide 27 mmol/L (22-32); Chloride 101 mmol/L (98-107); Estimated Glomerular Filt Rate > 60 mL/min (>60); Globulin 3.1 g/dL (1.7-4.1); Glucose 112 mg/dL (80-110); HEMOLYSIS < 15 (0-50); Potassium 3.7 mmol/L (3.4-5.1); Sodium 136 mmol/L (137-145); Total Protein 6.5 g/dL (6.3-8.2)
[2023-10-18 13:47] LABS: Free T4, Direct Thyroxine 1.42 ng/dL (0.78-2.19)
[2023-10-18 14:01] LABS: Thyroid Stimulating Hormone 10.5 uIU/mL (0.47-4.68)
== END ==
LOC: LAB 12:17
PROVIDERS: PCP Family Medicine; Referring Provider Internal Medicine; Visit Provider Internal Medicine
DX: C16.9 Malignant neoplasm of stomach, unspecified (principal)
CPT/HCPCS: 36415; 80053; 84439; 84443; 85025

== ENCOUNTER → 2023-10-18 15:16 | Outpatient (CLI) | payer OTHER, SELFPAY ==
--- NOTE | 2023-10-18 15:17 | DI.US.S_ITS ---
PROCEDURE: US ABDOMEN LIMITED INDICATIONS: ASCITES TECHNIQUE: Limited ultrasound of the 4 quadrants of the abdomen is performed to evaluate for ascites. COMPARISON: [facility], , US ABDOMEN LIMITED, 10/11/2023, 13:21. FINDINGS: No ascites seen in the 4 quadrants. Note is made of bilateral small to moderate-sized pleural effusions IMPRESSION: 1. No ascites seen. Paracentesis could not be performed 2. Bilateral small to moderate-sized pleural effusions noted Dictated by: Patel Castaneda M.D. on 10/19/2023 at 8:46 Approved by: Patel Castaneda M.D. on 10/19/2023 at 8:49
== END ==
LOC: US 15:16
PROVIDERS: PCP Family Medicine; Referring Provider Family Medicine; Visit Provider Family Medicine
DX: C16.9 Malignant neoplasm of stomach, unspecified (principal); R18.8 Other ascites; J90 Pleural effusion, not elsewhere classified
CPT/HCPCS: 36415; 76705; 80053; 84439; 84443; 85025

== ENCOUNTER → 2023-11-01 14:25 | Outpatient (CLI) | payer OTHER, SELFPAY ==
--- NOTE | 2023-11-01 | DI.US.S_ITS ---
PROCEDURE: US ABDOMEN LIMITED INDICATIONS: ASCITES/INSUFFICIENT FLUID FOR PARA TECHNIQUE: Real-time focused scanning was performed of the abdomen to assess for fluid, with image documentation. COMPARISON: [facility], , US ABDOMEN LIMITED, 10/18/2023, 15:22. FINDINGS: No ascites is seen. IMPRESSION: No ascites, no paracentesis was performed. Dictated by: James Manzo M.D. on 11/01/2023 at 15:57 Approved by: James Manzo M.D. on 11/01/2023 at 15:58
== END ==
LOC: US 14:25
PROVIDERS: PCP Family Medicine; Referring Provider Family Medicine; Visit Provider Family Medicine
DX: R18.8 Other ascites (principal); C16.9 Malignant neoplasm of stomach, unspecified
CPT/HCPCS: 76705

== ENCOUNTER → 2023-11-04 16:10 | Outpatient (CLI) | payer OTHER, SELFPAY ==
[2023-11-04 18:07] LABS: Add Manual Diff / Slide Review NO; Basophils Absolute Auto 0 /uL (0-100); Basophils Percent Auto 1.1 % (0-2); Eosinophils Absolute Auto 300 /uL (0-450); Eosinophils Percent Auto 8.1 % (2-4); Hematocrit 33.3 % (36-46); Lymphocytes Absolute Auto 1000 /uL (1100-4500); Lymphocytes Percent Auto 28.7 % (25-40); Mean Corpuscular HGB Conc 32.9 % (30-36); Monocytes Absolute Auto 600 /uL (0-900); Monocytes Percent Auto 16.4 % (3-14); Neutrophils Absolute Auto 1600 /uL (1500-7000); Neutrophils Percent Auto 45.7 % (50-75); Platelet Count 227 X10^3/uL (150-400); Red Blood Cell Count 3.78 X10^6/uL (4.0-5.2); Red Cell Distribution Width 17.1 % (11.6-14.8); White Blood Cell Count 3.4 X10^3/uL (4.5-11.0)
[2023-11-04 18:23] LABS: Alanine Aminotransferase 20 IU/L (<35); Albumin 3.9 g/dL (3.5-5.0); Albumin Globulin Ratio 1.2 (1.0-2.8); Alkaline Phosphatase 103 U/L (38-126); Aspartate Aminotransferase 34 IU/L (14-36); BUN Creatinine Ratio 12.8 (6-22); Bilirubin Total 0.7 mg/dL (0.2-1.3); Blood Urea Nitrogen 11 mg/dL (7-17); Calcium 9.8 mg/dL (8.4-10.2); Carbon Dioxide 28 mmol/L (22-32); Chloride 97 mmol/L (98-107); Estimated Glomerular Filt Rate > 60 mL/min (>60); Globulin 3.2 g/dL (1.7-4.1); Glucose 91 mg/dL (80-110); HEMOLYSIS < 15 (0-50); Potassium 3.8 mmol/L (3.4-5.1); Sodium 135 mmol/L (137-145); Total Protein 7.1 g/dL (6.3-8.2)
[2023-11-04 18:49] LABS: Thyroid Stimulating Hormone 0.668 uIU/mL (0.47-4.68)
[2023-11-04 19:39] LABS: Free T4, Direct Thyroxine 2.19 ng/dL (0.78-2.19)
== END ==
PROVIDERS: PCP Family Medicine; Referring Provider Internal Medicine; Visit Provider Internal Medicine
DX: C16.9 Malignant neoplasm of stomach, unspecified (principal)
CPT/HCPCS: 36415; 80053; 84439; 84443; 85025

== ENCOUNTER → 2023-11-15 15:11 | Outpatient (CLI) | payer OTHER, SELFPAY ==
--- NOTE | 2023-11-15 15:13 | DI.US.S_ITS ---
PROCEDURE: US ABDOMEN LIMITED INDICATIONS: ASCITES CHECK TECHNIQUE: Real-time scanning was performed of the abdominal and retroperitoneal organs, with image documentation. COMPARISON: [facility] [place], CT, CT CHEST ABDOMEN PELVIS WITH CONTRAST, 10/24/2023, 13:00. [facility], [place], US ABDOMEN LIMITED, 10/18/2023, 15:22. FINDINGS: No free fluid is present in all 4 quadrants. IMPRESSION: 1. No free fluid is present in peritoneal cavity. Dictated by: Hannah Benavides M.D. on 11/15/2023 at 16:57 Approved by: Hannah Benavides M.D. on 11/15/2023 at 17:00
== END ==
PROVIDERS: PCP Family Medicine; Referring Provider Family Medicine; Visit Provider Family Medicine
DX: C16.9 Malignant neoplasm of stomach, unspecified (principal); R18.8 Other ascites
CPT/HCPCS: 76705

== ENCOUNTER → 2023-11-18 14:49 | Outpatient (CLI) | payer OTHER, SELFPAY ==
[2023-11-18 15:37] LABS: Add Manual Diff / Slide Review NO; Basophils Absolute Auto 0 /uL (0-100); Basophils Percent Auto 0.9 % (0-2); Eosinophils Absolute Auto 200 /uL (0-450); Eosinophils Percent Auto 4.8 % (2-4); Hematocrit 33.1 % (36-46); Hemoglobin 11.1 g/dL (12.0-16.0); Lymphocytes Absolute Auto 1000 /uL (1100-4500); Lymphocytes Percent Auto 24.5 % (25-40); Mean Corpuscular HGB Conc 33.5 % (30-36); Mean Corpuscular Hemoglobin 29.5 PG (26-34); Mean Corpuscular Volume 88.1 fL (80-100); Monocytes Absolute Auto 300 /uL (0-900); Monocytes Percent Auto 6.8 % (3-14); Neutrophils Absolute Auto 2500 /uL (1500-7000); Platelet Count 158 X10^3/uL (150-400); Red Blood Cell Count 3.75 X10^6/uL (4.0-5.2); Red Cell Distribution Width 16.3 % (11.6-14.8)
[2023-11-18 16:03] LABS: Alanine Aminotransferase 22 IU/L (<35); Albumin Globulin Ratio 1.1 (1.0-2.8); Alkaline Phosphatase 112 U/L (38-126); Aspartate Aminotransferase 43 IU/L (14-36); BUN Creatinine Ratio 14.4 (6-22); Bilirubin Total 0.7 mg/dL (0.2-1.3); Blood Urea Nitrogen 14 mg/dL (7-17); Calcium 10.3 mg/dL (8.4-10.2); Carbon Dioxide 27 mmol/L (22-32); Chloride 100 mmol/L (98-107); Estimated Glomerular Filt Rate > 60 mL/min (>60); Globulin 3.7 g/dL (1.7-4.1); Glucose 93 mg/dL (80-110); HEMOLYSIS < 15 (0-50); Potassium 4.1 mmol/L (3.4-5.1); Sodium 138 mmol/L (137-145); Total Protein 7.7 g/dL (6.3-8.2)
[2023-11-18 16:31] LABS: TSH w/ Reflex to FT4 0.26 uIU/mL (0.47-4.68)
[2023-11-18 16:59] LABS: Free T4, Direct Thyroxine 2.23 ng/dL (0.78-2.19)
== END ==
PROVIDERS: PCP Family Medicine; Referring Provider Internal Medicine; Visit Provider Internal Medicine
DX: C16.9 Malignant neoplasm of stomach, unspecified (principal)
CPT/HCPCS: 36415; 80053; 84439; 84443; 85025

== ENCOUNTER → 2023-12-02 14:48 | Outpatient (CLI) | payer OTHER, SELFPAY ==
[2023-12-02 15:57] LABS: Add Manual Diff / Slide Review NO; Basophils Absolute Auto 0 /uL (0-100); Basophils Percent Auto 1.2 % (0-2); Eosinophils Absolute Auto 0 /uL (0-450); Hematocrit 33.9 % (36-46); Hemoglobin 11.4 g/dL (12.0-16.0); Lymphocytes Absolute Auto 1100 /uL (1100-4500); Lymphocytes Percent Auto 29.8 % (25-40); Mean Corpuscular HGB Conc 33.5 % (30-36); Mean Corpuscular Hemoglobin 29.6 PG (26-34); Mean Corpuscular Volume 88.4 fL (80-100); Monocytes Absolute Auto 500 /uL (0-900); Monocytes Percent Auto 13.9 % (3-14); Neutrophils Absolute Auto 2000 /uL (1500-7000); Neutrophils Percent Auto 54.1 % (50-75); Platelet Count 167 X10^3/uL (150-400); Red Blood Cell Count 3.84 X10^6/uL (4.0-5.2); Red Cell Distribution Width 16.5 % (11.6-14.8); White Blood Cell Count 3.6 X10^3/uL (4.5-11.0)
[2023-12-02 16:21] LABS: Alanine Aminotransferase 24 IU/L (<35); Albumin Globulin Ratio 1.1 (1.0-2.8); Alkaline Phosphatase 107 U/L (38-126); Aspartate Aminotransferase 44 IU/L (14-36); Bilirubin Total 0.6 mg/dL (0.2-1.3); Blood Urea Nitrogen 13 mg/dL (7-17); Calcium 10.1 mg/dL (8.4-10.2); Carbon Dioxide 28 mmol/L (22-32); Chloride 103 mmol/L (98-107); Estimated Glomerular Filt Rate > 60 mL/min (>60); Globulin 3.7 g/dL (1.7-4.1); Glucose 107 mg/dL (80-110); HEMOLYSIS < 15 (0-50); Potassium 3.5 mmol/L (3.4-5.1); Sodium 138 mmol/L (137-145); Total Protein 7.7 g/dL (6.3-8.2)
[2023-12-02 16:38] LABS: Free T4, Direct Thyroxine 2.55 ng/dL (0.78-2.19)
[2023-12-02 16:52] LABS: Thyroid Stimulating Hormone 0.074 uIU/mL (0.47-4.68)
== END ==
PROVIDERS: PCP Family Medicine; Referring Provider Internal Medicine; Visit Provider Internal Medicine
DX: C16.9 Malignant neoplasm of stomach, unspecified (principal)
CPT/HCPCS: 36415; 80053; 84439; 84443; 85025

== ENCOUNTER → 2023-12-30 10:41 | Outpatient (CLI) | payer OTHER, SELFPAY ==
[2023-12-30 12:04] LABS: Add Manual Diff / Slide Review NO; Basophils Absolute Auto 0 /uL (0-100); Basophils Percent Auto 0.4 % (0-2); Eosinophils Absolute Auto 200 /uL (0-450); Eosinophils Percent Auto 6.2 % (2-4); Hematocrit 34.2 % (36-46); Hemoglobin 11.2 g/dL (12.0-16.0); Lymphocytes Absolute Auto 1000 /uL (1100-4500); Lymphocytes Percent Auto 37.2 % (25-40); Mean Corpuscular HGB Conc 32.9 % (30-36); Mean Corpuscular Hemoglobin 30.6 PG (26-34); Monocytes Absolute Auto 500 /uL (0-900); Monocytes Percent Auto 19.1 % (3-14); Neutrophils Absolute Auto 1000 /uL (1500-7000); Neutrophils Percent Auto 37.1 % (50-75); Platelet Count 208 X10^3/uL (150-400); Red Blood Cell Count 3.68 X10^6/uL (4.0-5.2); Red Cell Distribution Width 16.2 % (11.6-14.8); White Blood Cell Count 2.8 X10^3/uL (4.5-11.0)
[2023-12-30 12:30] LABS: Alanine Aminotransferase 22 IU/L (<35); Albumin 3.6 g/dL (3.5-5.0); Albumin Globulin Ratio 1.1 (1.0-2.8); Alkaline Phosphatase 131 U/L (38-126); Aspartate Aminotransferase 41 IU/L (14-36); BUN Creatinine Ratio 14.3 (6-22); Bilirubin Total 0.6 mg/dL (0.2-1.3); Blood Urea Nitrogen 11 mg/dL (7-17); Calcium 9.7 mg/dL (8.4-10.2); Carbon Dioxide 27 mmol/L (22-32); Chloride 105 mmol/L (98-107); Estimated Glomerular Filt Rate > 60 mL/min (>60); Globulin 3.2 g/dL (1.7-4.1); Glucose 91 mg/dL (80-110); HEMOLYSIS < 15 (0-50); Potassium 4.3 mmol/L (3.4-5.1); Sodium 136 mmol/L (137-145); Total Protein 6.8 g/dL (6.3-8.2)
[2023-12-30 12:48] LABS: Free T4, Direct Thyroxine 2.89 ng/dL (0.78-2.19)
[2023-12-30 13:05] LABS: Thyroid Stimulating Hormone < 0.015 uIU/mL (0.47-4.68)
== END ==
LOC: LAB 10:43
PROVIDERS: PCP Family Medicine; Referring Provider Internal Medicine; Visit Provider Internal Medicine
DX: C16.9 Malignant neoplasm of stomach, unspecified (principal)
CPT/HCPCS: 36415; 80053; 84439; 84443; 85025

== ENCOUNTER → 2024-01-13 09:16 | Outpatient (CLI) | payer OTHER, SELFPAY ==
[2024-01-13 11:04] LABS: Add Manual Diff / Slide Review NO; Basophils Absolute Auto 0 /uL (0-100); Eosinophils Absolute Auto 100 /uL (0-450); Eosinophils Percent Auto 2.7 % (2-4); Hematocrit 34.3 % (36-46); Hemoglobin 11.6 g/dL (12.0-16.0); Lymphocytes Absolute Auto 900 /uL (1100-4500); Lymphocytes Percent Auto 33.5 % (25-40); Mean Corpuscular HGB Conc 33.8 % (30-36); Mean Corpuscular Volume 91.7 fL (80-100); Monocytes Absolute Auto 300 /uL (0-900); Monocytes Percent Auto 9.9 % (3-14); Neutrophils Absolute Auto 1400 /uL (1500-7000); Neutrophils Percent Auto 52.9 % (50-75); Platelet Count 178 X10^3/uL (150-400); Red Blood Cell Count 3.74 X10^6/uL (4.0-5.2); Red Cell Distribution Width 15.4 % (11.6-14.8); White Blood Cell Count 2.6 X10^3/uL (4.5-11.0)
[2024-01-13 11:33] LABS: Alanine Aminotransferase 16 IU/L (<35); Albumin 3.6 g/dL (3.5-5.0); Albumin Globulin Ratio 1.2 (1.0-2.8); Alkaline Phosphatase 110 U/L (38-126); Aspartate Aminotransferase 35 IU/L (14-36); BUN Creatinine Ratio 11.8 (6-22); Bilirubin Total 0.5 mg/dL (0.2-1.3); Blood Urea Nitrogen 9 mg/dL (7-17); Calcium 9.9 mg/dL (8.4-10.2); Carbon Dioxide 27 mmol/L (22-32); Chloride 104 mmol/L (98-107); Estimated Glomerular Filt Rate > 60 mL/min (>60); Globulin 3.1 g/dL (1.7-4.1); Glucose 83 mg/dL (80-110); HEMOLYSIS < 15 (0-50); Potassium 4.1 mmol/L (3.4-5.1); Sodium 137 mmol/L (137-145); Total Protein 6.7 g/dL (6.3-8.2)
[2024-01-13 11:47] LABS: Free T4, Direct Thyroxine 0.64 ng/dL (0.78-2.19)
[2024-01-13 12:01] LABS: Thyroid Stimulating Hormone 22.3 uIU/mL (0.47-4.68)
== END ==
LOC: LAB 09:18
PROVIDERS: PCP Family Medicine; Referring Provider Internal Medicine; Visit Provider Internal Medicine
DX: C16.9 Malignant neoplasm of stomach, unspecified (principal)
CPT/HCPCS: 36415; 80053; 84439; 84443; 85025

== ENCOUNTER → 2024-01-19 15:46 | Outpatient (CLI) | payer OTHER, SELFPAY ==
[2024-01-19 18:12] LABS: Free T4, Direct Thyroxine 0.88 ng/dL (0.78-2.19)
[2024-01-19 18:26] LABS: Thyroid Stimulating Hormone 22.9 uIU/mL (0.47-4.68)
== END ==
PROVIDERS: PCP Family Medicine; Referring Provider Internal Medicine; Visit Provider Internal Medicine
DX: C16.9 Malignant neoplasm of stomach, unspecified (principal)
CPT/HCPCS: 36415; 84439; 84443

== ENCOUNTER → 2024-01-27 12:46 | Outpatient (CLI) | payer OTHER, SELFPAY ==
[2024-01-27 14:52] LABS: Add Manual Diff / Slide Review NO; Basophils Absolute Auto 0 /uL (0-100); Basophils Percent Auto 1.3 % (0-2); Eosinophils Absolute Auto 100 /uL (0-450); Eosinophils Percent Auto 1.9 % (2-4); Hematocrit 34.6 % (36-46); Hemoglobin 11.6 g/dL (12.0-16.0); Lymphocytes Absolute Auto 1000 /uL (1100-4500); Lymphocytes Percent Auto 29.8 % (25-40); Mean Corpuscular HGB Conc 33.6 % (30-36); Mean Corpuscular Hemoglobin 31.2 PG (26-34); Mean Corpuscular Volume 92.8 fL (80-100); Monocytes Absolute Auto 400 /uL (0-900); Monocytes Percent Auto 11.6 % (3-14); Neutrophils Absolute Auto 1800 /uL (1500-7000); Neutrophils Percent Auto 55.4 % (50-75); Platelet Count 157 X10^3/uL (150-400); Red Blood Cell Count 3.73 X10^6/uL (4.0-5.2); Red Cell Distribution Width 15.4 % (11.6-14.8); White Blood Cell Count 3.3 X10^3/uL (4.5-11.0)
[2024-01-27 15:27] LABS: Alanine Aminotransferase 13 IU/L (<35); Albumin 3.7 g/dL (3.5-5.0); Albumin Globulin Ratio 1.3 (1.0-2.8); Alkaline Phosphatase 118 U/L (38-126); Aspartate Aminotransferase 32 IU/L (14-36); BUN Creatinine Ratio 16.9 (6-22); Bilirubin Total 0.5 mg/dL (0.2-1.3); Blood Urea Nitrogen 12 mg/dL (7-17); Calcium 9.7 mg/dL (8.4-10.2); Carbon Dioxide 28 mmol/L (22-32); Chloride 105 mmol/L (98-107); Estimated Glomerular Filt Rate > 60 mL/min (>60); Globulin 2.9 g/dL (1.7-4.1); Glucose 86 mg/dL (80-110); HEMOLYSIS < 15 (0-50); Potassium 3.8 mmol/L (3.4-5.1); Sodium 137 mmol/L (137-145); Total Protein 6.6 g/dL (6.3-8.2)
[2024-01-27 15:43] LABS: Free T4, Direct Thyroxine 1.41 ng/dL (0.78-2.19)
== END ==
PROVIDERS: PCP Family Medicine; Referring Provider Internal Medicine; Visit Provider Internal Medicine
DX: C16.9 Malignant neoplasm of stomach, unspecified (principal)
CPT/HCPCS: 36415; 80053; 84439; 84443; 85025

== ENCOUNTER → 2024-02-09 14:39 | Outpatient (CLI) | payer OTHER, SELFPAY ==
[2024-02-09 15:07] LABS: Add Manual Diff / Slide Review NO; Basophils Absolute Auto 0 /uL (0-100); Basophils Percent Auto 0.9 % (0-2); Eosinophils Absolute Auto 100 /uL (0-450); Eosinophils Percent Auto 1.4 % (2-4); Hematocrit 35.7 % (36-46); Hemoglobin 11.8 g/dL (12.0-16.0); Lymphocytes Absolute Auto 1100 /uL (1100-4500); Lymphocytes Percent Auto 27.9 % (25-40); Mean Corpuscular HGB Conc 33.2 % (30-36); Mean Corpuscular Volume 93.6 fL (80-100); Monocytes Absolute Auto 200 /uL (0-900); Monocytes Percent Auto 5.7 % (3-14); Neutrophils Absolute Auto 2600 /uL (1500-7000); Neutrophils Percent Auto 64.1 % (50-75); Platelet Count 160 X10^3/uL (150-400); Red Blood Cell Count 3.81 X10^6/uL (4.0-5.2); Red Cell Distribution Width 16.3 % (11.6-14.8); White Blood Cell Count 4.1 X10^3/uL (4.5-11.0)
[2024-02-09 15:19] LABS: Alanine Aminotransferase 14 IU/L (<35); Albumin 3.9 g/dL (3.5-5.0); Albumin Globulin Ratio 1.3 (1.0-2.8); Alkaline Phosphatase 107 U/L (38-126); Aspartate Aminotransferase 37 IU/L (14-36); BUN Creatinine Ratio 11.6 (6-22); Bilirubin Total 0.6 mg/dL (0.2-1.3); Blood Urea Nitrogen 8 mg/dL (7-17); Calcium 9.8 mg/dL (8.4-10.2); Carbon Dioxide 27 mmol/L (22-32); Chloride 105 mmol/L (98-107); Estimated Glomerular Filt Rate > 60 mL/min (>60); Glucose 113 mg/dL (80-110); HEMOLYSIS < 15 (0-50); Potassium 3.8 mmol/L (3.4-5.1); Sodium 138 mmol/L (137-145); Total Protein 6.9 g/dL (6.3-8.2)
[2024-02-09 15:47] LABS: Free T4, Direct Thyroxine 1.18 ng/dL (0.78-2.19)
[2024-02-09 16:01] LABS: Thyroid Stimulating Hormone 12.1 uIU/mL (0.47-4.68)
== END ==
PROVIDERS: PCP Family Medicine; Referring Provider Internal Medicine; Visit Provider Internal Medicine
DX: C16.9 Malignant neoplasm of stomach, unspecified (principal)
CPT/HCPCS: 36415; 80053; 84439; 84443; 85025

== ENCOUNTER → 2024-02-23 13:51 | Outpatient (CLI) | payer OTHER, SELFPAY ==
[2024-02-23 15:04] LABS: Add Manual Diff / Slide Review NO; Basophils Absolute Auto 0 /uL (0-100); Basophils Percent Auto 1.3 % (0-2); Eosinophils Absolute Auto 100 /uL (0-450); Eosinophils Percent Auto 1.6 % (2-4); Hematocrit 33.8 % (36-46); Hemoglobin 11.4 g/dL (12.0-16.0); Lymphocytes Absolute Auto 1000 /uL (1100-4500); Lymphocytes Percent Auto 26.1 % (25-40); Mean Corpuscular HGB Conc 33.6 % (30-36); Mean Corpuscular Hemoglobin 31.7 PG (26-34); Mean Corpuscular Volume 94.2 fL (80-100); Monocytes Absolute Auto 400 /uL (0-900); Monocytes Percent Auto 10.2 % (3-14); Neutrophils Absolute Auto 2300 /uL (1500-7000); Neutrophils Percent Auto 60.8 % (50-75); Platelet Count 132 X10^3/uL (150-400); Red Blood Cell Count 3.59 X10^6/uL (4.0-5.2); Red Cell Distribution Width 16.7 % (11.6-14.8); White Blood Cell Count 3.8 X10^3/uL (4.5-11.0)
[2024-02-23 15:21] LABS: Alanine Aminotransferase 13 IU/L (<35); Albumin 3.9 g/dL (3.5-5.0); Albumin Globulin Ratio 1.1 (1.0-2.8); Alkaline Phosphatase 126 U/L (38-126); Aspartate Aminotransferase 34 IU/L (14-36); BUN Creatinine Ratio 12.5 (6-22); Bilirubin Total 0.7 mg/dL (0.2-1.3); Blood Urea Nitrogen 9 mg/dL (7-17); Calcium 9.8 mg/dL (8.4-10.2); Carbon Dioxide 28 mmol/L (22-32); Chloride 105 mmol/L (98-107); Estimated Glomerular Filt Rate > 60 mL/min (>60); Globulin 3.4 g/dL (1.7-4.1); Glucose 94 mg/dL (80-110); HEMOLYSIS < 15 (0-50); Potassium 3.9 mmol/L (3.4-5.1); Sodium 137 mmol/L (137-145); Total Protein 7.3 g/dL (6.3-8.2)
[2024-02-23 15:52] LABS: TSH w/ Reflex to FT4 4.85 uIU/mL (0.47-4.68)
[2024-02-23 15:53] LABS: Thyroid Stimulating Hormone 4.83 uIU/mL (0.47-4.68)
[2024-02-23 16:12] LABS: Vitamin B12 353 pg/mL (239-931)
[2024-02-24 02:10] LABS: Free T4, Direct Thyroxine 1.35 ng/dL (0.78-2.19)
== END ==
PROVIDERS: Family Medicine; PCP Family Medicine; Referring Provider Internal Medicine; Visit Provider Internal Medicine
DX: C16.9 Malignant neoplasm of stomach, unspecified (principal); G62.0 Drug-induced polyneuropathy; T45.1X5A Adverse effect of antineoplastic and immunosuppressive drugs, initial encounter; E03.9 Hypothyroidism, unspecified; R89.9 Unspecified abnormal finding in specimens from other organs, systems and tissues
CPT/HCPCS: 36415; 80053; 82607; 84439; 84443; 85025

== ENCOUNTER → 2024-03-08 16:25 | Outpatient (CLI) | payer OTHER, SELFPAY ==
[2024-03-08 17:59] LABS: Add Manual Diff / Slide Review NO; Basophils Absolute Auto 100 /uL (0-100); Basophils Percent Auto 1.2 % (0-2); Eosinophils Absolute Auto 100 /uL (0-450); Eosinophils Percent Auto 1.6 % (2-4); Hematocrit 33.5 % (36-46); Hemoglobin 11.3 g/dL (12.0-16.0); Lymphocytes Absolute Auto 1200 /uL (1100-4500); Lymphocytes Percent Auto 26.5 % (25-40); Mean Corpuscular HGB Conc 33.9 % (30-36); Mean Corpuscular Hemoglobin 32.4 PG (26-34); Mean Corpuscular Volume 95.6 fL (80-100); Monocytes Absolute Auto 600 /uL (0-900); Monocytes Percent Auto 12.7 % (3-14); Neutrophils Absolute Auto 2600 /uL (1500-7000); Platelet Count 229 X10^3/uL (150-400); Red Cell Distribution Width 16.5 % (11.6-14.8); White Blood Cell Count 4.4 X10^3/uL (4.5-11.0)
[2024-03-08 18:00] LABS: Alanine Aminotransferase 13 IU/L (<35); Albumin 3.7 g/dL (3.5-5.0); Albumin Globulin Ratio 1.1 (1.0-2.8); Alkaline Phosphatase 127 U/L (38-126); Aspartate Aminotransferase 40 IU/L (14-36); BUN Creatinine Ratio 12.3 (6-22); Bilirubin Total 0.5 mg/dL (0.2-1.3); Blood Urea Nitrogen 9 mg/dL (7-17); Calcium 9.4 mg/dL (8.4-10.2); Carbon Dioxide 30 mmol/L (22-32); Chloride 105 mmol/L (98-107); Estimated Glomerular Filt Rate > 60 mL/min (>60); Globulin 3.4 g/dL (1.7-4.1); Glucose 101 mg/dL (80-110); HEMOLYSIS < 15 (0-50); Potassium 3.5 mmol/L (3.4-5.1); Sodium 138 mmol/L (137-145); Total Protein 7.1 g/dL (6.3-8.2)
[2024-03-08 18:16] LABS: Free T4, Direct Thyroxine 1.12 ng/dL (0.78-2.19)
[2024-03-08 18:31] LABS: Thyroid Stimulating Hormone 2.09 uIU/mL (0.47-4.68)
== END ==
PROVIDERS: PCP Family Medicine; Referring Provider Internal Medicine; Visit Provider Internal Medicine
DX: C16.9 Malignant neoplasm of stomach, unspecified (principal)
CPT/HCPCS: 36415; 80053; 84439; 84443; 85025

== ENCOUNTER → 2024-03-22 12:48 | Outpatient (CLI) | payer OTHER, SELFPAY ==
[2024-03-22 13:45] LABS: Add Manual Diff / Slide Review NO; Basophils Absolute Auto 0 /uL (0-100); Basophils Percent Auto 0.8 % (0-2); Eosinophils Absolute Auto 200 /uL (0-450); Eosinophils Percent Auto 3.7 % (2-4); Hematocrit 32.9 % (36-46); Hemoglobin 11.1 g/dL (12.0-16.0); Lymphocytes Absolute Auto 1200 /uL (1100-4500); Lymphocytes Percent Auto 22.7 % (25-40); Mean Corpuscular HGB Conc 33.7 % (30-36); Mean Corpuscular Hemoglobin 32.7 PG (26-34); Monocytes Absolute Auto 900 /uL (0-900); Monocytes Percent Auto 16.5 % (3-14); Neutrophils Absolute Auto 3000 /uL (1500-7000); Neutrophils Percent Auto 56.3 % (50-75); Platelet Count 172 X10^3/uL (150-400); Red Blood Cell Count 3.39 X10^6/uL (4.0-5.2); Red Cell Distribution Width 16.8 % (11.6-14.8); White Blood Cell Count 5.3 X10^3/uL (4.5-11.0)
[2024-03-22 14:05] LABS: Alanine Aminotransferase 19 IU/L (<35); Albumin 3.5 g/dL (3.5-5.0); Albumin Globulin Ratio 1.2 (1.0-2.8); Alkaline Phosphatase 142 U/L (38-126); Aspartate Aminotransferase 48 IU/L (14-36); BUN Creatinine Ratio 15.8 (6-22); Bilirubin Total 0.8 mg/dL (0.2-1.3); Blood Urea Nitrogen 12 mg/dL (7-17); Calcium 9.2 mg/dL (8.4-10.2); Carbon Dioxide 28 mmol/L (22-32); Chloride 108 mmol/L (98-107); Estimated Glomerular Filt Rate > 60 mL/min (>60); Glucose 93 mg/dL (80-110); HEMOLYSIS < 15 (0-50); Potassium 4.1 mmol/L (3.4-5.1); Sodium 139 mmol/L (137-145); Total Protein 6.5 g/dL (6.3-8.2)
[2024-03-22 14:36] LABS: Thyroid Stimulating Hormone 4.28 uIU/mL (0.47-4.68)
== END ==
LOC: LAB 12:49
PROVIDERS: PCP Family Medicine; Referring Provider Internal Medicine; Visit Provider Internal Medicine
DX: C16.9 Malignant neoplasm of stomach, unspecified (principal)
CPT/HCPCS: 36415; 80053; 84436; 84443; 85025

== ENCOUNTER → 2024-04-06 10:39 | Outpatient (CLI) | payer OTHER, SELFPAY ==
[2024-04-06 12:13] LABS: Add Manual Diff / Slide Review NO; Basophils Absolute Auto 0 /uL (0-100); Basophils Percent Auto 0.8 % (0-2); Eosinophils Absolute Auto 400 /uL (0-450); Eosinophils Percent Auto 8.2 % (2-4); Hematocrit 34.2 % (36-46); Hemoglobin 11.5 g/dL (12.0-16.0); Lymphocytes Absolute Auto 900 /uL (1100-4500); Lymphocytes Percent Auto 20.3 % (25-40); Mean Corpuscular HGB Conc 33.7 % (30-36); Mean Corpuscular Hemoglobin 33.2 PG (26-34); Mean Corpuscular Volume 98.5 fL (80-100); Monocytes Absolute Auto 600 /uL (0-900); Monocytes Percent Auto 13.2 % (3-14); Neutrophils Absolute Auto 2600 /uL (1500-7000); Neutrophils Percent Auto 57.5 % (50-75); Platelet Count 224 X10^3/uL (150-400); Red Blood Cell Count 3.47 X10^6/uL (4.0-5.2); Red Cell Distribution Width 15.7 % (11.6-14.8); White Blood Cell Count 4.6 X10^3/uL (4.5-11.0)
[2024-04-06 12:36] LABS: Alanine Aminotransferase 16 IU/L (<35); Albumin 3.6 g/dL (3.5-5.0); Albumin Globulin Ratio 1.1 (1.0-2.8); Alkaline Phosphatase 137 U/L (38-126); Aspartate Aminotransferase 40 IU/L (14-36); BUN Creatinine Ratio 12.5 (6-22); Bilirubin Total 0.5 mg/dL (0.2-1.3); Blood Urea Nitrogen 10 mg/dL (7-17); Calcium 9.3 mg/dL (8.4-10.2); Carbon Dioxide 30 mmol/L (22-32); Chloride 105 mmol/L (98-107); Estimated Glomerular Filt Rate > 60 mL/min (>60); Globulin 3.4 g/dL (1.7-4.1); Glucose 97 mg/dL (80-110); HEMOLYSIS < 15 (0-50); Potassium 4.7 mmol/L (3.4-5.1); Sodium 139 mmol/L (137-145)
[2024-04-06 12:44] LABS: Free T4, Direct Thyroxine 0.76 ng/dL (0.78-2.19)
[2024-04-06 12:58] LABS: Thyroid Stimulating Hormone 37.6 uIU/mL (0.47-4.68)
== END ==
LOC: LAB 10:40
PROVIDERS: PCP Family Medicine; Referring Provider Internal Medicine; Visit Provider Internal Medicine
DX: C16.9 Malignant neoplasm of stomach, unspecified (principal)
CPT/HCPCS: 36415; 80053; 84439; 84443; 85025